=== PATIENT | female | born 1950 | race Caucasian/White ===

== ENCOUNTER 2019-09-13 14:52 | Outpatient (CLI) | payer MEDICARE, OTHER, SELFPAY ==
--- NOTE | ~2019-09-13 | XR_ITS ---
EXAMINATION: XR lumbar spine 2-3V DATE: 09/13/2019 15:19 INDICATION: Right-sided sciatica. TECHNIQUE: 3 views of lumbar spine were obtained. COMPARISON: CT abdomen and pelvis 08/29/2014 FINDINGS: There is 4 degrees dextrocurvature of lumbar spine. Vertebral body heights are normal. Ther e is mildly decreased disc height at L5-S1. There are endplate osteophytes at most levels. There is m ultilevel severe facet joint osteoarthritis. IMPRESSION: 1. Mild lumbar spondylosis. Reviewed, dictated and finalized at location A. IMPRESSION: 1. Mild lumbar spondylosis.
--- NOTE | ~2019-09-13 | XR_ITS ---
EXAMINATION: XR knee RT 3V DATE: 09/13/2019 15:19 INDICATION: Right knee pain. TECHNIQUE: 3 views of right knee were obtained. COMPARISON: None. FINDINGS: Bone alignment is normal. No fracture. There is mild tricompartmental osteoarthritis. There is a moderate-sized knee joint effusion. IMPRESSION: 1. Mild right knee osteoarthritis. 2. Moderate-sized right knee joint effusion. Reviewed, dictated and finalized at location A.
== END 2019-09-13 14:53 | disposition home or self-care (01) ==
PROVIDERS: PCP Family Medicine; Visit Provider Nurse Practitioner Family
DX: M54.31 Sciatica, right side (principal); M47.896 Other spondylosis, lumbar region; M17.11 Unilateral primary osteoarthritis, right knee; M25.461 Effusion, right knee
CPT/HCPCS: 72100; 73562

== ENCOUNTER → 2019-11-20 11:43 | Outpatient (CLI) | payer MEDICARE, OTHER, SELFPAY ==
--- NOTE | ~2019-11-20 | MR_ITS ---
EXAMINATION: MR knee RT wo con DATE: 11/20/2019 12:27 INDICATION: Right knee pain TECHNIQUE: Magnetic resonance imaging (MRI) of the right knee was performed without intravenous contr ast. Sequences included coronal PD-weighted FSE, coronal PD-weighted FS FSE, sagittal T2-weighted FS E, sagittal PD-weighted FS FSE and axial PD weighted fat saturated FSE. COMPARISON: None. FINDINGS: Medial compartment: Complex medial meniscal tear including a radial tear near the posterior root and a longitudinal horiz ontal tear plane extending to the more medial posterior horn and body. Amorphous increased signal at the anterior horn representing additional anterior extension of the tear or secondary degeneration of indeterminate morphology. There is medial extrusion of the meniscal body. Deep chondral ulceration w ith scattered foci of subarticular edema at the anterior to central weightbearing medial femoral cond yle and anterior and medial margin of the medial tibial plateau. Less severe thickness chondral ulcer ation but with deep fissuring and with small central subchondral osteophytes at the posterior weightb earing medial femoral condyle. Small marginal osteophytes are present. Lateral compartment: Deep chondral fissuring involving greater than 50% the cartilage thickness but without degenerative s ubchondral changes at the central aspect of the lateral tibial plateau and with mild subarticular mariya ma at the anterior weightbearing lateral femoral condyle. Partial thickness cartilage loss with chond ral surface regularity but without degenerative subchondral changes at the posterior weightbearing la teral femoral condyle. Tiny marginal osteophytes are present. Patellofemoral compartment: Deep chondral ulceration without degenerative subchondral changes at the patellar apical ridge and mo re prominently along the medial patellar facet. Deep chondral fissuring without degenerative subchond ral changes at the medial trochlea, trochlear groove and lateral trochlea. Ligaments and tendons: Anterior and posterior cruciate ligaments are normal. The medial collateral ligament and fibular sabiha ateral ligament complex are normal. Small enthesophytes and mild tendinopathy at the patellar inserti on of the distal quadriceps tendon. The patellar tendon is normal. Mild tendinopathy without discrete tear at the distal semimembranosus tendon. The remainder of the visualized medial and lateral hamstr ing tendons as well as the iliotibial band are normal. Fluid: Moderate-sized knee joint effusion with fluid and mild synovitis at the suprapatellar pouch. Addition al mild synovitis along the posterior margin of Hoffa's fat pad. No loose osteochondral bodies identi fied. Osseous/other: Aside from the previously noted scattered subarticular edema there is normal marrow signal. No fractu re or pathologic marrow replacing process. IMPRESSION: 1. Complex medial meniscal tear. 2. 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 3. Mild semimembranosus tendinopathy without discrete tear. 4. Mild distal quadriceps enthesopathy. 5. Likely reactive moderate sized knee joint effusion with synovitis. Reviewed, dictated and finalized at location A. IMPRESSION: 1. Complex medial meniscal tear. 2. 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 3. Mild semimembranosus tendinopathy without discrete tear. 4. Mild distal quadriceps enthesopathy. 5. Likely reactive moderate sized knee joint effusion with synovitis.
== END ==
PROVIDERS: Visit Provider Orthopaedic Surgery
DX: S83.231A Complex tear of medial meniscus, current injury, right knee, initial encounter (principal); X58.XXXA Exposure to other specified factors, initial encounter; M25.461 Effusion, right knee
CPT/HCPCS: 73721

== ENCOUNTER 2019-12-27 10:36 | Outpatient (CLI) | payer MEDICARE, OTHER, SELFPAY ==
--- NOTE | 2019-12-27 | ECG_ITS ---
Measurements Intervals [place] Rate: 52 P: 54 IN: 202 QRS: 42 QRSD: 102 T: 22 QT: 418 QTc: 392 Interpretive Statements SINUS BRADYCARDIA BORDERLINE AV CONDUCTION DELAY BORDERLINE ST ABNORMALITY- INFERIOR LEADS BORDERLINE ECG Electronically Signed On 12-27-2019 11:32:50 CDT by Jasper Zepeda D.O.
[2019-12-27 11:13] LABS: Urine Cotinine NEGATIVE
[2019-12-27 11:13] LABS: Hemoglobin A1C 5.4 % (<5.7)
[2019-12-27 11:14] LABS: Albumin Level 4.4 g/dL (3.5-5.1); Estimated Glomerular Filt Rate > 60; Glucose 83 mg/dL (65-105)
== END 2019-12-27 10:37 | disposition home or self-care (01) ==
PROVIDERS: PCP Family Medicine; Visit Provider Orthopaedic Surgery
DX: Z01.818 Encounter for other preprocedural examination (principal); I10 Essential (primary) hypertension; E03.9 Hypothyroidism, unspecified; R94.4 Abnormal results of kidney function studies; R94.31 Abnormal electrocardiogram [ECG] [EKG]
CPT/HCPCS: 80307; 82040; 82565; 82947; 83036; 85014; 85018; 93005

== ENCOUNTER 2020-01-18 09:44 | Outpatient (CLI) | payer MEDICARE, OTHER, SELFPAY ==
[2020-01-18 12:12] LABS: Basophils Percent Auto 0.6 % (0.2-1.2); Eosinophils Absolute Auto 0.1 K/mm3 (0-0.3); Eosinophils Percent Auto 1.6 % (0-4.4); Hematocrit 42.2 % (37.0-47.0); Hemoglobin 13.8 g/dL (12.0-15.0); Immature Granulocyte Absolute 0.02 K/mm3 (0.00-0.031); Immature Granulocyte Percent A 0.3 % (0-0.5); Lymphocytes Absolute Auto 2.16 K/mm3 (0.9-3.2); Lymphocytes Percent Auto 31.9 % (18.3-44.2); Mean Corpuscular HGB Conc 32.7 g/dl (32-36); Mean Corpuscular Hemoglobin 29.1 pg (26-34); Mean Corpuscular Volume 88.8 fl (80-100); Monocytes Absolute Auto 0.5 K/mm3 (0.1-0.6); Monocytes Percent Auto 7.7 % (2.6-8.5); Neutrophils Absolute Auto 3.9 K/mm3 (1.3-6.7); Neutrophils Percent Auto 57.9 % (45.5-73.1); Platelet Count Result 243 k/mm3 (150-375); Red Blood Count 4.75 M/mm3 (4.2-5.4); Red Cell Distribution Width 12.3 % (11.5-14.5); White Blood Count 6.8 K/mm3 (4.5-10.0)
== END 2020-01-18 09:45 | disposition home or self-care (01) ==
PROVIDERS: PCP Family Medicine; Visit Provider Orthopaedic Surgery
DX: M17.11 Unilateral primary osteoarthritis, right knee (principal); Z01.812 Encounter for preprocedural laboratory examination
CPT/HCPCS: 36415; 85025; 87081

== ENCOUNTER 2020-02-09 01:24 | Outpatient (CLI) | payer MEDICARE, OTHER, SELFPAY ==
[2020-02-09 18:04] LABS: SARS-CoV-2 RNA PCR Negative
== END 2020-02-09 01:25 | disposition home or self-care (01) ==
LOC: ANHCOVIDDT 01:25
PROVIDERS: PCP Family Medicine; Visit Provider Orthopaedic Surgery
DX: Z01.818 Encounter for other preprocedural examination (principal); Z20.828 Contact with and (suspected) exposure to other viral communicable diseases
CPT/HCPCS: 87635; C9803; U0003

== ENCOUNTER 2020-02-10 08:54 | Emergency (ER) | payer MEDICARE, OTHER, SELFPAY ==
--- NOTE | ~2020-02-10 | XR_ITS ---
EXAMINATION: XR lumbar spine 2-3V DATE: 02/10/2020 09:51 INDICATION: Left-sided low back pain. TECHNIQUE: 3 views of lumbar spine were obtained. COMPARISON: Lumbar spine radiograph 09/13/2019 FINDINGS: Bone alignment is normal. There is a compression fracture of L1 with 1/5 loss of height. In tervertebral disc heights are normal. There are endplate osteophytes at most levels. There is multile carmenza severe facet joint osteoarthritis. IMPRESSION: 1. Age-indeterminate L1 compression fracture, new from 09/13/2019. 2. Mild lumbar spondylosis. Reviewed, dictated and finalized at location A. SITTER
[2020-02-10 09:06] VITALS: BP 134/54; PULSE 59; RESP 17; TEMP 36.5; O2SAT 100
--- NOTE | 2020-02-10 09:47 | PC.NURSE ---
PT taken to Xray
[2020-02-10] MEDS: KETOROLAC (*BKC) 60 MG/2 ML VIAL IM (09:53)
[2020-02-10] MEDS: methylPREDNISolone ACETATE 80 MG/ML VIAL IM (09:53)
--- NOTE | 2020-02-10 10:20 | ED.FALL ---
HPI - Fall General Chief Complaint: Fall Stated Complaint: fall, back pain Time Seen by Provider: 02/10/20 09:11 History of Present Illness HPI Narrative: Patient is a 69-year-old female who presents ER with low back pain. Patient reports 2 days ago she was walking and tripped over some socks falling backwards into a wall striking her back. Pain has increased and been persistent over the last 24 hours. Seems to be more on the left side than the right. Has a lot of pain with bending and trying to stand up. She is most comfortable sitting upright. No numbness or tingling to lower extremities. No difficulty urinating or defecating. Did not strike any other part of her body. She has been taking [id number] pain medications and has been applying Biofreeze patches without relief of her discomfort. Related Data Home Medications Medication Instructions Recorded Confirmed propranolol 80 mg capsule,24 80 mg PO DAILY 02/19/19 02/08/20 hr,extended release primidone 50 mg tablet 125 mg PO BID 06/01/19 02/08/20 fluticasone propionate 50 1 spray NASAL DAILY 09/27/19 02/08/20 mcg/actuation nasal spray,suspension atorvastatin 40 mg PO HS 01/18/20 02/08/20 azelastine [Astepro] 2 spray INTRANASAL Q12H 01/18/20 02/08/20 losartan 100 mg PO DAILY 01/18/20 02/08/20 multivitamin [Multi-Vitamin] 1 tablet PO DAILY 01/18/20 02/08/20 sumatriptan succinate [Imitrex] See Rx Instructions PO .COMPLEX 01/18/20 02/08/20 nystatin 100,000 unit/gram topical 1 applic TOPICAL DAILY 02/06/20 cream triamcinolone acetonide 0.1 % 1 applic TOPICAL DAILY 02/06/20 topical ointment Allergies Allergy/AdvReac Type Severity Reaction Status Date / Time Cephalosporins Allergy Unknown Rash Verified 02/10/20 09:12 levofloxacin Allergy Unknown Rash Verified 02/10/20 09:12 amoxicillin AdvReac STOMACH Verified 02/10/20 09:12 UPSET nitrofurantoin AdvReac STOMACH Verified 02/10/20 09:12 UPSET Review of Systems Gastrointestinal: Gastrointestinal: Denies constipation, Denies nausea and Denies vomiting Genitourinary: Genitourinary: Denies nocturia and Denies urinary incontinence Musculoskeletal: Musculoskeletal: Reports back pain and Denies muscle cramps Neurologic: Denies focal weakness and Denies numbness PMFSH Past Medical History Medical History Abnormal kidney function Anxiety disorder, unspecified BMI 29.0-29.9,adult Cardiac murmur, unspecified Essential (primary) hypertension History of breast cancer History of fracture of arm (~2013) Hypothyroidism Knee osteoarthritis Migraine without aura and with status migrainosus, not intractable Mixed hyperlipidemia Shoulder pain, bilateral Tremor Trochanteric bursitis of left hip Vitamin D deficiency, unspecified Surgical History Surgical History History of arthroscopy of left knee (~2007) History of bladder surgery (~2016) History of hysterectomy (~2004) History of left knee replacement (~2012) Family History Family History Father Hypertension, Onset Age: 63 Patient's father is Mother Hypertension, Onset Age: 59 Family history of malignant neoplasm Patient's mother is Sibling Hypertension Family history of coronary artery disease Grandparent Diabetes mellitus, Onset Age: 83 Social History Social History Smoking status: Never smoker Second hand tobacco smoke exposure: No Alcohol intake: never Substance use: never Spiritual care concerns: No Exam Narrative: Exam Narrative: GENERAL: Well-appearing, well-nourished, and in no acute distress. HEAD: Normocephalic, atraumatic. EXTREMITIES: Normal range of motion. No edema. Back: No midline tenderness of the thoracic or lumbar spin
== END 2020-02-10 11:19 | disposition home or self-care (01) ==
PROVIDERS: Emergency Provider Emergency Medicine; PCP Family Medicine
DX: S32.018A Other fracture of first lumbar vertebra, initial encounter for closed fracture (principal); I10 Essential (primary) hypertension; Z85.3 Personal history of malignant neoplasm of breast; E03.9 Hypothyroidism, unspecified; M17.10 Unilateral primary osteoarthritis, unspecified knee; E78.2 Mixed hyperlipidemia; E55.9 Vitamin D deficiency, unspecified; Z96.652 Presence of left artificial knee joint; M47.816 Spondylosis without myelopathy or radiculopathy, lumbar region; W18.09XA Striking against other object with subsequent fall, initial encounter
CPT/HCPCS: 72100; 96372; 99284; J1040; J1885

== ENCOUNTER 2020-03-25 09:28 | Outpatient (CLI) | payer MEDICARE, OTHER, SELFPAY ==
--- NOTE | ~2020-03-25 | MR_ITS ---
EXAMINATION: MR lumbar spine wo con DATE: 03/25/2020 10:20 INDICATION: L1 compression fracture. TECHNIQUE: Magnetic resonance imaging (MRI) of the lumbar spine was performed without intravenous con trast. Sequences included sagittal T2-weighted FSE, sagittal T2-weighted FS FSE, sagittal T1-weighted FSE, and axial T2-weighted FSE. COMPARISON: Lumbar spine radiographs 02/10/2020 FINDINGS: There is 8 degrees dextrocurvature of thoracic lumbar spine. There is a compression fractur e of superior endplate of L1 with 2/5 loss of height, bone marrow edema, and retropulsion of bone 4 m m into central spinal canal. There is mildly decreased disc height at T12-L1. The distal spinal cord signal intensity is normal. The conus medullaris is at T12-L1. There are cysts in the kidneys measuri ng up to 8.3 cm on the left. The following disc levels are specifically discussed: T12-L1: The disc is bulging. There is moderate right and mild left facet joint osteoarthritis. There is mild left neural foraminal stenosis. There is mild central canal stenosis. L1-L2: The disc does not extend beyond the endplate margin. There is moderate bilateral facet joint o steoarthritis. There is no neural foraminal stenosis. There is no central canal stenosis. L2-L3: The disc is bulging. There is severe bilateral facet joint osteoarthritis. There is mild bilat eral neural foraminal stenosis. There is mild central canal stenosis. L3-L4: The disc is bulging. There is moderate bilateral facet joint osteoarthritis. There is mild chris ateral neural foraminal stenosis. There is mild central canal stenosis. L4-L5: The disc is bulging. There is severe bilateral facet joint osteoarthritis. There is mild bilat eral neural foraminal stenosis. There is mild central canal stenosis. L5-S1: The disc is bulging. There is severe bilateral facet joint osteoarthritis. There is mild bilat eral neural foraminal stenosis. There is mild central canal stenosis. IMPRESSION: 1. Subacute L1 burst fracture, stable from 02/10/2020. 2. Mild lumbar spondylosis. Reviewed, dictated and finalized at location A. T ECOLOGIST
== END 2020-03-25 09:29 | disposition home or self-care (01) ==
PROVIDERS: PCP Family Medicine; Visit Provider Physician Assistant Medical
DX: S32.010A Wedge compression fracture of first lumbar vertebra, initial encounter for closed fracture (principal); X58.XXXA Exposure to other specified factors, initial encounter; M47.896 Other spondylosis, lumbar region
CPT/HCPCS: 72148

== ENCOUNTER 2021-03-24 08:26 | Outpatient (CLI) | payer MEDICARE, OTHER, SELFPAY ==
--- NOTE | 2021-03-24 08:43 | ECHO_ITS ---
Patient Info Name: Adele Gould Age: 70 years : 1950 Gender: Female Ht: 65 in Wt: 182 lbs BSA: 1.97 m2 HR: 58 bpm BP: 131 / 66 mmHg Technical Quality: Good Exam Date: 03/24/2021 8:51 AM Exam Location: [facility] Patient Status: Outpatient Admit Date: 03/24/2021 Staff Ordering Physician: Debbie Menendez PAC [employer] Insulation Installer: Kayleen Phelan RDCS Attending Provider: Debbie Menendez Referring Physician: Shon COATS; Exam Type: CA echo doppler color flow Study Info Indications I49.8 - Other specified cardiac arrhythmias Complete two-dimensional, color flow and Doppler transthoracic echocardiogram is performed. Summary 1. Complete two-dimensional, color flow and Doppler transthoracic echocardiogram is performed. 2. Left ventricular chamber dimension is normal. 3. Left ventricular systolic function is hyperdynamic, estimated at >70%. 4. The left ventricular diastolic function is abnormal. 5. E/e' 17 is elevated. 6. Global longitudinal strain is normal at -19.1%. 7. Left atrial chamber dimension is mildly enlarged. 8. There is mild mitral valve regurgitation. 9. There is trace tricuspid valve regurgitation. 10. No pulmonary hypertension, estimated pulmonary arterial systolic pressure is 29 mmHg. Left Ventricle E/e' 17 is elevated. Global longitudinal strain is normal at -19.1%. Left ventricular chamber dimension is normal. Left ventricular systolic function is hyperdynamic, estimated at >70%. The left ventricular diastolic function is abnormal. Right Ventricle Right ventricular chamber dimension is normal. Right ventricular systolic function is normal. Left Atria Left atrial chamber dimension is mildly enlarged. Right Atria Right atrial chamber dimension is normal. Aortic Valve The aortic valve is trileaflet. There is no aortic valve stenosis. There is no aortic valve regurgitation. Pulmonic Valve There is no pulmonic regurgitation. Mitral Valve There is no mitral valve stenosis. There is mild mitral valve regurgitation. Tricuspid Valve There is trace tricuspid valve regurgitation. No pulmonary hypertension, estimated pulmonary arterial systolic pressure is 29 mmHg. Pericardium/Pleural There is no pericardial effusion. Inferior Vena Cava Normal inferior vena cava with >50% collapse upon inspiration consistent with normal right atrial pressure, 5 mmHg. Aorta The aortic root size at the sinus of Valsalva is normal. Left Ventricular Outflow Tract Name Value Normal LVOT 2D LVOT Diameter 2.0 cm LVOT Doppler LVOT Peak Gradient 5 mmHg LVOT Mean Gradient 3 mmHg LVOT VTI 25 cm LVOT VTI/AV VTI Ratio 0.8 LVOT Stroke Volume 76 ml LVOT CO 4.1 l/min LVOT CI 2.1 l/min/m2 Pulmonic Valve Name Value Normal
--- NOTE | 2021-03-30 16:02 | WPDHOLTEREM ---
Holter/Event Monitor Holter/Event Monitor Date of procedure: 03/24/21 Holter/Event Procedure: 24 Hr Holter Monitor Indications: Murmur Conclusion: 1. 24 hour holter monitor on 03/24/21. 2. Underlying rhythm is sinus rhythm. HR range 52-85 bpm; average HR 63 bpm. 3. There are 297 premature supraventricular complexes and 25 supraventricular couplets. No supraventricular tachycardia. 4. No premature ventricular complex. No ventricular tachycardia. 5. No sinoatrial or atrioventricular blocks. No significant pauses greater than 2 seconds. 6. No symptoms available for correlation.
== END 2021-03-24 08:27 | disposition home or self-care (01) ==
PROVIDERS: PCP Family Medicine; Visit Provider Physician Assistant Medical
DX: I49.8 Other specified cardiac arrhythmias (principal); R01.1 Cardiac murmur, unspecified; I51.7 Cardiomegaly
CPT/HCPCS: 93225; 93226; 93306

== ENCOUNTER 2021-10-04 07:24 | Outpatient (CLI) | payer MEDICARE, OTHER, SELFPAY ==
--- NOTE | ~2021-10-04 | MR_ITS ---
EXAMINATION: MR lumbar spine wo con DATE: 10/04/2021 08:11 INDICATION: Lumbar spondylosis with 3 years of progressively worsening low back pain TECHNIQUE: Magnetic resonance imaging (MRI) of the lumbar spine was performed without intravenous con trast. Sequences included sagittal T2-weighted FSE, sagittal T2-weighted FS FSE, sagittal T1-weighted FSE, and axial T2-weighted FSE. COMPARISON: 03/25/2020 FINDINGS: 2 mm anterolisthesis L5 on S1. L1 is a transitional segment with bilateral unfused transverse process apophyseal centers. No interval change in an L1 burst fracture with 40% central vertebral body heigh t loss and 4 mm retropulsion at the cephalad aspect of the posterior wall. Remaining vertebral body h eights are normal. Normal marrow signal. Mild disc height loss at T11-T12. The conus medullaris term inates at T12-L1. T1 and T2 hyperintense hemangioma at T11. There is otherwise normal signal in the c audal spinal cord. Multiple large T2 hyperintense bilateral renal cysts The following disc levels are specifically discussed: T12-L1: Disc is bulging and there is retropulsion of the superior endplate and posterior wall at L1. There is moderate bilateral facet joint osteoarthritis. There is mild right and moderate left neural foraminal stenosis. There is mild central canal stenosis. L1-L2: Mild right foraminal zone disc protrusion. There is moderate bilateral facet joint osteoarthri tis. There is mild right neural foraminal stenosis. There is minimal central canal stenosis. L2-L3: Disc is bulging. There is severe bilateral facet joint osteoarthritis. There is mild bilateral neural foraminal stenosis. There is mild central canal stenosis. L3-L4: Disc is bulging. There is moderate bilateral facet joint osteoarthritis. There is mild bilater al neural foraminal stenosis. There is mild central canal stenosis. L4-L5: Disc is bulging. There is hypertrophy of the ligamentum flavum. There is severe bilateral fac et joint osteoarthritis. There is mild bilateral neural foraminal stenosis. There is mild central can al stenosis. L5-S1: Disc is bulging. There is severe bilateral facet joint osteoarthritis. There is mild bilateral neural foraminal stenosis. There is mild central canal stenosis. IMPRESSION: 1. No interval change in a chronic L1 burst fracture. 2. Negligible progression of still mild lumbar spondylosis. Reviewed, dictated and finalized at location A.
== END 2021-10-04 07:25 | disposition home or self-care (01) ==
PROVIDERS: PCP Family Medicine; Visit Provider Nurse Practitioner Family
DX: M47.816 Spondylosis without myelopathy or radiculopathy, lumbar region (principal); S32.011A Stable burst fracture of first lumbar vertebra, initial encounter for closed fracture
CPT/HCPCS: 72148

== ENCOUNTER 2022-03-01 10:31 | Outpatient (CLI) | payer MEDICARE, OTHER, SELFPAY ==
--- NOTE | ~2022-03-01 | XR_ITS ---
XR lumbar spine 2-3V DATE: 03/01/2022 11:00 INDICATION: Low back pain for years. Fracture of L1-2 years ago. TECHNIQUE: AP, lateral, coned lateral lumbosacral views COMPARISON: 02/10/2020 lumbar spine 10/04/2021 MR lumbar spine FINDINGS: Stable moderately prominent burst fracture deformity of L1 compared to 10/04/2021 MR lumbar s pine examination. No other fracture or bone destruction is evident. Included lower thoracic and lumba r pedicles are intact. There is prominent degenerative change at the apophyseal joints of the Multilevel mild degenerative disc disease. Lumbar and lumbosacral spine. The sacroiliac joints are intact. There is osteopenia. IMPRESSION: Stable L1 burst fracture deformity since 06/2021 Multilevel mild degenerative disc disease of the lumbar spine. Osteopenia Reviewed, dictated and finalized at location B. 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
== END 2022-03-01 10:32 | disposition home or self-care (01) ==
PROVIDERS: PCP Family Medicine
DX: S32.011A Stable burst fracture of first lumbar vertebra, initial encounter for closed fracture (principal); X58.XXXA Exposure to other specified factors, initial encounter; M51.36 Other intervertebral disc degeneration, lumbar region; M85.88 Other specified disorders of bone density and structure, other site
CPT/HCPCS: 72100

== ENCOUNTER 2022-03-27 11:47 | Emergency (ER) | payer MEDICARE, OTHER, SELFPAY ==
--- NOTE | 2022-03-27 11:51 | ED.DENTAL ---
HPI - Dental/Oral General Chief complaint: Dental/Oral Stated complaint: mouth is swelling Time Seen by Provider: 03/27/22 11:51 Source: patient Mode of arrival: ambulatory Limitations: no limitations History of Present Illness HPI Narrative: Adele is a 71-year-old female patient presenting to the clinic today with complaints of mouth swelling times 2-3 days. She reports the swelling is getting worse as it now feels as though is going back into her jaw and into her ear. She started Bactrim DS for urinary tract infection think that she may have an allergic reaction. She denies any shortness of breath or difficulty swallowing. States she feels as though her lips are swollen her tongue is swollen her mouth is swollen. Related Data Home Medications Medication Instructions Recorded Confirmed propranolol 80 mg capsule,24 80 mg PO DAILY 02/19/19 03/27/22 hr,extended release primidone 50 mg tablet 125 mg PO BID 06/01/19 03/27/22 fluticasone propionate 50 1 spray intranasal DAILY 09/27/19 03/27/22 mcg/actuation nasal spray,suspension (Flonase Allergy Relief) azelastine 137 mcg (0.1 %) nasal 2 spray intranasal Q12H 01/18/20 03/27/22 spray aerosol multivitamin 1 tablet PO DAILY 01/18/20 03/27/22 triamcinolone acetonide 0.1 % 1 applic topical DAILY 02/06/20 03/27/22 topical ointment aspirin 81 mg tablet,delayed 81 mg PO DAILY 10/20/20 03/27/22 release (Adult Aspirin Regimen) cetirizine 10 mg capsule (Zyrtec) 10 mg PO DAILY PRN Congestion 10/20/20 03/27/22 cholecalciferol (vitamin D3) 75 75 mcg PO DAILY 10/20/20 03/27/22 mcg (3,000 unit) tablet Allergies Allergy/AdvReac Type Severity Reaction Status Date / Time Cephalosporins Allergy Unknown Rash Verified 03/27/22 11:55 levofloxacin Allergy Unknown Rash Verified 03/27/22 11:55 sulfamethoxazole Allergy Swelling Verified 03/27/22 12:06 [From Bactrim] of Lip/Tongue/Throat trimethoprim [From Bactrim] Allergy Swelling Verified 03/27/22 12:06 of Lip/Tongue/Throat amoxicillin AdvReac STOMACH Verified 03/27/22 11:55 UPSET clavulanic acid AdvReac Diarrhea Verified 03/27/22 12:06 [From Augmentin] nitrofurantoin AdvReac STOMACH Verified 03/27/22 11:55 UPSET Review of Systems Review of Systems: Pertinent positives per HPI. Patient denies any fever, chills, rash, headache, visual changes, dizziness, cough, runny nose, sore throat, shortness of breath, chest pain, palpitations, nausea, vomiting, diarrhea, constipation, abdominal pain, or any urinary issues. [facility] Past Medical History Medical History Abnormal kidney function Anxiety disorder, unspecified BMI 29.0-29.9,adult Cardiac murmur, unspecified Essential (primary) hypertension GERD without esophagitis History of breast cancer History of fracture of arm (~2013) Hypothyroidism Knee osteoarthritis Migraine without aura and with status migrainosus, not intractable Mixed hyperlipidemia Shoulder pain, bilateral Tremor Trochanteric bursitis of left hip Vitamin D deficiency, unspecified Surgical History Surgical History History of arthroscopy of left knee (~2007) History of bladder surgery (~2016) History of hysterectomy (~2004) History of left knee replacement (~2012) Family History Family History Father Hypertension, Onset Age: 63 Patient's father is Mother Hypertension, Onset Age: 59 Family history of malignant neoplasm Patient's mother is Sibling Hypertension Family history of coronary artery disease Grandparent Diabetes mellitus, Onset Age: 83 Social History Social History Smoking status: Never smoker Second hand tobacco smoke exposure: Yes Alcohol intak
[2022-03-27 11:56] VITALS: BP 102/56; PULSE 58; RESP 16; TEMP 35.9; O2SAT 98
== END 2022-03-27 12:35 | disposition home or self-care (01) ==
PROVIDERS: Emergency Provider Nurse Practitioner Family; PCP Family Medicine
DX: T78.3XXA Angioneurotic edema, initial encounter (principal); N30.00 Acute cystitis without hematuria; I10 Essential (primary) hypertension; E03.9 Hypothyroidism, unspecified; E78.2 Mixed hyperlipidemia; Z79.82 Long term (current) use of aspirin; Z85.3 Personal history of malignant neoplasm of breast
CPT/HCPCS: 96372; 99213; G0463; J1100

== ENCOUNTER 2022-03-29 09:25 | Emergency (ER) | payer MEDICARE, OTHER, SELFPAY ==
[2022-03-29 09:34] VITALS: BP 126/49; PULSE 61; RESP 16; TEMP 36.1; O2SAT 100
--- NOTE | 2022-03-29 09:35 | ED.ALLEREA ---
HPI - Allergic Reaction General Chief complaint: Allergic Reaction Stated complaint: allergic reaction to medicine Time Seen by Provider: 03/29/22 09:50 Mode of arrival: ambulatory Limitations: no limitations History of Present Illness HPI narrative: 71-year-old female presents with concern for allergic reaction. She was seen by her primary care on the and placed on Bactrim for urinary tract infection. She presented to this clinic on the for an allergic reaction to Bactrim. She was placed on Macrobid. She presents today for concern for allergic reaction to Macrobid. She reports lip swelling, feeling of tongue swelling, feeling of sickness when she swallows. She has been taking Benadryl every 6 hours since March 27. She reports symptoms of her UTI have improved but are not resolved. She denies fever, back pain, body aches, chills, sweats. MD complaint: allergic reaction Related Data Home Medications Medication Instructions Recorded Confirmed propranolol 80 mg capsule,24 80 mg PO DAILY 02/19/19 03/27/22 hr,extended release primidone 50 mg tablet 125 mg PO BID 06/01/19 03/27/22 fluticasone propionate 50 1 spray intranasal DAILY 09/27/19 03/27/22 mcg/actuation nasal spray,suspension (Flonase Allergy Relief) azelastine 137 mcg (0.1 %) nasal 2 spray intranasal Q12H 01/18/20 03/27/22 spray aerosol multivitamin 1 tablet PO DAILY 01/18/20 03/27/22 triamcinolone acetonide 0.1 % 1 applic topical DAILY 02/06/20 03/27/22 topical ointment aspirin 81 mg tablet,delayed 81 mg PO DAILY 10/20/20 03/27/22 release (Adult Aspirin Regimen) cetirizine 10 mg capsule (Zyrtec) 10 mg PO DAILY PRN Congestion 10/20/20 03/27/22 cholecalciferol (vitamin D3) 75 75 mcg PO DAILY 10/20/20 03/27/22 mcg (3,000 unit) tablet meclizine 25 mg tablet 25 mg PO TID PRN Dizziness 03/27/22 03/27/22 Allergies Allergy/AdvReac Type Severity Reaction Status Date / Time Cephalosporins Allergy Unknown Rash Verified 03/27/22 11:55 levofloxacin Allergy Unknown Rash Verified 03/27/22 11:55 sulfamethoxazole Allergy Swelling Verified 03/27/22 12:06 [From Bactrim] of Lip/Tongue/Throat trimethoprim [From Bactrim] Allergy Swelling Verified 03/27/22 12:06 of Lip/Tongue/Throat amoxicillin AdvReac STOMACH Verified 03/27/22 11:55 UPSET clavulanic acid AdvReac Diarrhea Verified 03/27/22 12:06 [From Augmentin] nitrofurantoin AdvReac STOMACH Verified 03/27/22 11:55 UPSET Review of Systems Review of Systems: CONSTITUTIONAL: Denies malaise, chills, sweats, or fever. EYES: Denies visual changes, redness, or discharge. ENT: Reports swollen upper lip, swollen tongue CARDIOVASCULAR: Denies chest pain, palpitations, or edema. RESPIRATORY: Denies cough or dyspnea. GASTROINTESTINAL: Denies abdominal pain, nausea, vomitin GENITOURINARY: Denies dysuria or hematuria. SKIN: Denies rash or itching. MUSCULOSKELETAL: Denies back pain or myalgia. All systems reviewed & are unremarkable except as noted in HPI and below PMFSH Past Medical History Medical History Abnormal kidney function Anxiety disorder, unspecified BMI 29.0-29.9,adult Cardiac murmur, unspecified Essential (primary) hypertension GERD without esophagitis History of breast cancer History of fracture of arm (~2013) Hypothyroidism Knee osteoarthritis Migraine without aura and with status migrainosus, not intractable Mixed hyperlipidemia Shoulder pain, bilateral Tremor Trochanteric bursitis of left hip Vitamin D deficiency, unspecified Surgical History Surgical History History of arthroscopy of left knee (~2007) History of bladder surgery (~2016) History of hysterectomy (~2004) History of left knee replacement (~2012) Family History Family History Father
[2022-03-29] MEDS: methylPREDNISolone SOD SUCC 125 MG VIAL IM (09:56)
[2022-03-29] MEDS: cefTRIAXone 1 GM, LIDOCAINE HCL 1% LOCAL INJ 2.1 ML IM (10:45)
== END 2022-03-29 11:00 | disposition home or self-care (01) ==
PROVIDERS: Emergency Provider Nurse Practitioner; PCP Family Medicine
DX: N39.0 Urinary tract infection, site not specified (principal); R22.0 Localized swelling, mass and lump, head; T37.8X5A Adverse effect of other specified systemic anti-infectives and antiparasitics, initial encounter; R01.1 Cardiac murmur, unspecified; I10 Essential (primary) hypertension; K21.9 Gastro-esophageal reflux disease without esophagitis; Z85.3 Personal history of malignant neoplasm of breast; E03.9 Hypothyroidism, unspecified; E78.2 Mixed hyperlipidemia; Z96.652 Presence of left artificial knee joint; Z79.82 Long term (current) use of aspirin
CPT/HCPCS: 81003; 87086; 87088; 96372; 99214; G0463; J0696; J2930

== ENCOUNTER 2022-03-30 10:10 | Emergency (ER) | payer MEDICARE, OTHER, SELFPAY ==
[2022-03-30 10:19] VITALS: BP 136/69; PULSE 61; RESP 16; TEMP 36.3; O2SAT 100
--- NOTE | 2022-03-30 10:38 | ED.FEMALEGU ---
HPI - Female Genitourinary General Chief complaint: Urogenital-Female Stated complaint: UTI Time Seen by Provider: 03/30/22 10:25 Source: patient Mode of arrival: ambulatory Limitations: no limitations History of Present Illness HPI Narrative: Aedle is a 71-year-old female patient presenting to the clinic today with complaints of facial swelling and possible urinary tract infection. She was seen twice before this week in the urgent care and also seen by her PCP. Her PCP placed her on Bactrim DS and she developed swelling 1-2 days after starting this medication so that medication was stopped and her urine culture was positive for E coli that was resistant to the Bactrim. I placed her on Macrobid, promethazine, and prednisone 3 days ago. She came in yesterday for same symptoms and received a Rocephin injection however she is still having swelling. She is currently taking losartan. Related Data Home Medications Medication Instructions Recorded Confirmed propranolol 80 mg capsule,24 80 mg PO DAILY 02/19/19 03/29/22 hr,extended release primidone 50 mg tablet 125 mg PO BID 06/01/19 03/29/22 fluticasone propionate 50 1 spray intranasal DAILY 09/27/19 03/29/22 mcg/actuation nasal spray,suspension (Flonase Allergy Relief) azelastine 137 mcg (0.1 %) nasal 2 spray intranasal Q12H 01/18/20 03/29/22 spray aerosol multivitamin 1 tablet PO DAILY 01/18/20 03/29/22 triamcinolone acetonide 0.1 % 1 applic topical DAILY 02/06/20 03/29/22 topical ointment aspirin 81 mg tablet,delayed 81 mg PO DAILY 10/20/20 03/29/22 release (Adult Aspirin Regimen) cetirizine 10 mg capsule (Zyrtec) 10 mg PO DAILY PRN Congestion 10/20/20 03/29/22 cholecalciferol (vitamin D3) 75 75 mcg PO DAILY 10/20/20 03/29/22 mcg (3,000 unit) tablet meclizine 25 mg tablet 25 mg PO TID PRN Dizziness 03/27/22 03/29/22 Allergies Allergy/AdvReac Type Severity Reaction Status Date / Time Cephalosporins Allergy Unknown Rash Verified 03/27/22 11:55 levofloxacin Allergy Unknown Rash Verified 03/27/22 11:55 sulfamethoxazole Allergy Swelling Verified 03/27/22 12:06 [From Bactrim] of Lip/Tongue/Throat trimethoprim [From Bactrim] Allergy Swelling Verified 03/27/22 12:06 of Lip/Tongue/Throat amoxicillin AdvReac STOMACH Verified 03/27/22 11:55 UPSET clavulanic acid AdvReac Diarrhea Verified 03/27/22 12:06 [From Augmentin] nitrofurantoin AdvReac STOMACH Verified 03/27/22 11:55 UPSET Review of Systems Review of Systems: Pertinent positives per HPI. Patient denies any fever, chills, rash, headache, visual changes, dizziness, cough, runny nose, sore throat, shortness of breath, chest pain, palpitations, nausea, vomiting, diarrhea, constipation, abdominal pain. FOR[facility]LY [facility] Past Medical History Medical History Abnormal kidney function Anxiety disorder, unspecified BMI 29.0-29.9,adult Cardiac murmur, unspecified Essential (primary) hypertension GERD without esophagitis History of breast cancer History of fracture of arm (~2013) Hypothyroidism Knee osteoarthritis Migraine without aura and with status migrainosus, not intractable Mixed hyperlipidemia Shoulder pain, bilateral Tremor Trochanteric bursitis of left hip Vitamin D deficiency, unspecified Surgical History Surgical History History of arthroscopy of left knee (~2007) History of bladder surgery (~2017) History of hysterectomy (~2004) History of left knee replacement (~2012) Family History Family History Father Hypertension, Onset Age: 63 Patient's father is Mother Hypertension, Onset Age: 59 Family history of malignant neoplasm Patient's mother is Sibling Hypertension Family history of coronary artery disease Grandparent Di
== END 2022-03-30 11:00 | disposition home or self-care (01) ==
PROVIDERS: Emergency Provider Nurse Practitioner Family; PCP Family Medicine
DX: T78.3XXA Angioneurotic edema, initial encounter (principal); N39.0 Urinary tract infection, site not specified; R01.1 Cardiac murmur, unspecified; I10 Essential (primary) hypertension; G21.9 Secondary parkinsonism, unspecified; E03.9 Hypothyroidism, unspecified; E78.2 Mixed hyperlipidemia; E55.9 Vitamin D deficiency, unspecified; Z85.3 Personal history of malignant neoplasm of breast; Z96.652 Presence of left artificial knee joint; Z79.82 Long term (current) use of aspirin
CPT/HCPCS: 81003; 99212; G0463

== ENCOUNTER → 2022-05-27 08:19 | Outpatient (CLI) | payer MEDICARE, OTHER, SELFPAY ==
--- NOTE | ~2022-05-27 | MR_ITS ---
MRI of the lumbar spine Clinical History: Spinal stenosis, compression fracture Technique: Axial T2-weighted images, and sagittal T1-weighted, T2-weighted, and T2 fat-sat images wer e acquired. COMPARISON: 10/04/2021 Findings: Chronic compression deformity of L1 is present, unchanged from prior exam. No new fracture or subluxation seen. Bone marrow signals are unremarkable. At L1-L2, there is no disc bulge or herniation. There is mild facet joint hypertrophy. No spinal perez l stenosis or neural foraminal narrowing. At L2-L3, there is minimal disc bulge with facet arthropathy. No spinal canal stenosis or neural fora michelle narrowing. At L3-L4, there is minimal disc bulge with facet arthropathy. No spinal canal stenosis. Probable mini mal left neural foraminal narrowing. At L4-L5, there is mild disc bulge with advanced facet arthropathy bilaterally. No spinal canal steno sis. There is minimal left neural foraminal narrowing. At L5-S1, there is facet arthropathy with minimal disc bulge. No spinal canal stenosis or neural fora michelle narrowing. Paravertebral soft tissues are unremarkable. Impression: Stable chronic L1 compression fracture. Mild degenerative spondylosis, as detailed above. Reviewed, dictated and finalized at location . R PLANT MANAGER Impression: Stable chronic L1 compression fracture. Mild degenerative spondylosis, as detailed above.
--- NOTE | ~2022-05-27 | MR_ITS ---
MRI of the thoracic spine Clinical History: Pain, compression fracture Technique: Axial T2-weighted and gradient images, and sagittal T1-weighted, T2-weighted, and STIR cole ges were acquired. Findings: No fracture or subluxation seen in the thoracic spine. Chronic L1 compression fracture inci dentally noted. Osseous alignment in thoracic spine is unremarkable. No bone marrow signal abnormalit y identified. No significant disc bulge or herniation seen at any thoracic level. No spinal canal stenosis or cord compression identified. No epidural mass or collection seen. Subtle bilateral renal cysts are present. Paravertebral soft tissues are unremarkable otherwise. Impression: No significant abnormality of the thoracic spine itself. Chronic L1 compression fracture. Please see details on separately reported lumbar spine MR. Reviewed, dictated and finalized at location . TE MACHINE BLUER Impression: No significant abnormality of the thoracic spine itself. Chronic L1 compression fracture. Please see details on separately reported lumb ar spine MR.
== END ==
PROVIDERS: PCP Family Medicine
DX: S32.010S Wedge compression fracture of first lumbar vertebra, sequela (principal); M47.816 Spondylosis without myelopathy or radiculopathy, lumbar region; M54.6 Pain in thoracic spine; M48.061 Spinal stenosis, lumbar region without neurogenic claudication; X58.XXXS Exposure to other specified factors, sequela; N28.1 Cyst of kidney, acquired
CPT/HCPCS: 72146; 72148

== ENCOUNTER 2023-02-03 01:29 | Day surgery (SDC) | payer MEDICARE, OTHER, SELFPAY ==
--- NOTE | 2023-01-28 08:30 | PC.NURSE ---
Report to the Outpatient Waiting Room, entrance under the green pavilion located off [facility], at time __1000 on date __02/03/23 . Planned Procedure Time: ___1100 . Time changes happen often and if your time is changed the preop area will call you the afternoon before. - You and your visitor will be asked to self-screen and do not enter if you have any COVID symptoms. - A mask is optional within the hospital at this time. PatIENT MAY HAVE LIGHT BREAKFAST MORNING OF SURGERY Take the following medications with a SIP of water the morning of surgery: ___ALL ROUTINE MORNING MEDICATIONS DO NOT STOP ANY OF YOUR OTHER PRESCRIPTION MEDICATIONS PRIOR TO SURGERY ?EXCEPT THE FOLLOWING Medications to discontinue per physician Date to take last dose Please no make-up, nail hebrew, hairspray, perfume, deodorant, or body powder the day of surgery. No jewelry (including any body piercings) or valuables the day of surgery, leave them at home. Please take a shower or bath the night before, or the morning of, surgery with an antibacterial soap. Wear comfortable, loose fitting clothing. Children are encouraged to wear pajamas. - Jewelry must be removed prior to entering the operating room. Rings and piercings that are not removed may be cut off. - The hospital will not accept responsibility for valuables. - Please leave all valuables, including medications, at home the day of surgery. If you are going home after surgery, a licensed chain saw driver must drive you home. - NO public transportation without another adult if you receive anesthesia. - We recommend that an adult stay with you for 24 hours following discharge. - We also recommend that you do not drive, make important decision, drink alcoholic beverages, or take any drugs that were not prescribed by your health care provider for at least 24 hours after your discharge time. Follow any additional instructions given to you from your surgeon. If you or anyone in your household have experienced Covid symptoms in the past week, please notify your surgeon or the nurse liaison at the phone number below for possible testing. Telephone instructions given to __PT and asked if any additional questions and then verbalized understanding. Patient advised to call surgeon office or pre surgery nurse liaison [phone] if any additional questions.
[2023-01-28 08:38] VITALS: BMI 31.8
--- NOTE | 2023-02-03 07:16 | WPDHPUPDATE1 ---
History and Physical Update Update Date/Time: 02/03/23 07:16 History and Physical has been reviewed, including an updated exam of the patient. There are NO changes in the patient's condition. Risks, benefits, and alternatives have been discussed and questions answered. Patient agrees to proceed with procedure.
[2023-02-03] MEDS: ACETAMINOPHEN 500 MG TABLET 1000 MG PO (07:20)
[2023-02-03 07:30] VITALS: BP 133/62; PULSE 52; RESP 20; O2SAT 100
[2023-02-03 07:34] VITALS: BP 104/46; PULSE 52; RESP 14; TEMP 36.2; O2SAT 99
[2023-02-03 07:40] VITALS: BP 152/67; PULSE 52; RESP 18; O2SAT 98
[2023-02-03] MEDS: BUPIVACAINE/EPINEPHRINE 0.5% 10 ML VIAL INFILTRATE (07:47)
[2023-02-03 07:50] VITALS: BP 131/63; PULSE 53; RESP 18; O2SAT 99
[2023-02-03 08:02] VITALS: BP 130/54; PULSE 52; RESP 16; O2SAT 100
--- NOTE | 2023-02-03 08:33 | SUR.PHASEII ---
Addendum entered by Emerita Bullock RN 02/03/23 08:39: increased Original Note: Dr. Cavanaugh aware of patient's decreased cap refill and thumb turning blue. He told RN he wasn't too concerned and said EPI (local) is known to do that but please loosen bandage.
--- NOTE | 2023-02-03 08:46 | P.OP_ITS ---
Procedure Note - Detailed Date of Procedure 02/03/23 Pre-op Diagnosis Right Trigger Thumb Post-op Diagnosis Same Procedure Performed Right trigger thumb release. Surgeon Ramo Cavanaugh MD Family Intervention Specialist Shanti Kyle PA-C Anesthesia Local Description of Procedure The hand was prepped and draped in the usual sterile fashion with a tourniquet was applied to the arm and well-padded. 6 mL 0.5% Marcaine with epinephrine was injected at the incision site. The limb was exsanguinated and the tourniquet inflated to 225 millimeters of mercury. A transverse incision was created over the A1 christian subcutaneous dissection was carried out bluntly. The A1 christian was identified and visualized. It was released with the dissection scissors longitudinally. The tourniquet was released. The wound was closed with horizontal mattress nylon suture 3-0. A sterile bulky dressing was applied. The patient was brought to the recovery room in stable condition. The finger was noted to be bit dusky in recovery and the dressing was taken down to the skin reapplied more loosely. Estimated Blood Loss 1 Pathology None sent Complications No immediate complications Condition Stable Disposition PACU [facility] Billing Surgery - Charge Forward: Surgery Billing
== END 2023-02-03 08:46 | disposition home or self-care (01) ==
PROVIDERS: PCP Family Medicine; Visit Provider Orthopaedic Surgery
PROC: (CPT 26055; principal; 2023-02-03 07:30)
DX: M65.311 Trigger thumb, right thumb (principal); F41.9 Anxiety disorder, unspecified; I10 Essential (primary) hypertension; K21.9 Gastro-esophageal reflux disease without esophagitis; E03.9 Hypothyroidism, unspecified; E78.2 Mixed hyperlipidemia; E55.9 Vitamin D deficiency, unspecified; G25.2 Other specified forms of tremor; Z79.4 Long term (current) use of insulin; Z80.9 Family history of malignant neoplasm, unspecified; Z82.49 Family history of ischemic heart disease and other diseases of the circulatory system; Z85.3 Personal history of malignant neoplasm of breast
CPT/HCPCS: 26055; A9270

== ENCOUNTER 2023-07-05 13:11 | Outpatient (CLI) | payer MEDICARE, OTHER, SELFPAY ==
--- NOTE | ~2023-07-05 | MR_ITS ---
MRI of the lumbar spine Clinical History: Degenerative disc disease Technique: Axial T2-weighted images, and sagittal T1-weighted, T2-weighted, and and T2 fat-sat images were acquired. COMPARISON: Report from prior exam dated 05/27/2022 Findings: Chronic L1 compression fracture present, likely unchanged. No acute fracture or subluxation seen in the lumbar spine. No suspicious bone marrow signal reality seen. At L1-L2, there is no significant disc bulge or herniation. There is moderate facet arthropathy. No c entral canal stenosis or neural foraminal narrowing. At L2-L3, there is mild disc bulge with severe facet arthropathy. No central canal stenosis. There is mild left neural foraminal narrowing, and moderate right neural foraminal narrowing. At L3-L4, there is minimal disc bulge and moderate facet arthropathy. No central canal stenosis. Ther e is mild to moderate bilateral neural foraminal narrowing. At L4-L5, there is mild disc bulge with severe facet arthropathy. No central canal stenosis. There is mild bilateral neural foraminal narrowing. At L5-S1, there is mild disc bulge with severe facet arthropathy. No central canal stenosis or defini te neural foraminal narrowing. Paravertebral soft tissues are unremarkable. Impression: Chronic L1 compression fracture. Mild degenerative spondylosis overall, as detailed above. Reviewed, dictated and finalized at [facility]. Impression: Chronic L1 compression fracture. Mild degenerative spondylosis overall, as detailed above.
== END 2023-07-05 13:12 | disposition home or self-care (01) ==
LOC: ANHIMG 13:12
PROVIDERS: PCP Family Medicine; Visit Provider Nurse Practitioner Family
DX: M51.36 Other intervertebral disc degeneration, lumbar region (principal); M47.896 Other spondylosis, lumbar region
CPT/HCPCS: 72148

== ENCOUNTER 2023-07-10 19:23 | Emergency (ER) | payer MEDICARE, OTHER, SELFPAY ==
--- NOTE | ~2023-07-10 | XR_ITS ---
EXAMINATION: XR chest 2V Exam Date/Time: 07/10/2023 19:36 CDT HISTORY: cough SOB x 5 days Comparison: 01/01/2019, report only. RESULT: Lines, tubes, and devices: None. Lungs and pleura: Clear. Cardiomediastinal silhouette: Unremarkable. Other: No acute osseous or upper abdominal finding. IMPRESSION: No acute cardiopulmonary process. Reviewed, dictated and finalized at location K.
--- NOTE | 2023-07-10 19:28 | ED.URI ---
HPI - URI/Sore Throat General Chief Complaint: Upper Respiratory Infection Stated Complaint: COUGH/SOB Time Seen by Provider: 07/10/23 19:33 Source: patient, RN notes reviewed and old records reviewed Mode of arrival: ambulatory Limitations: no limitations History of Present Illness HPI Narrative: 72-year-old female presents to the [facility] with complaints of cough and shortness of breath. SX started Tuesday, 5 day. Denies any swelling, chest pain. Patient received an albuterol inhaler on for 07/05. States she used her albuterol inhaler at 6:00 p.m. approximately an hour half prior to arrival Onset (ago): day(s) (5) Treatments prior to arrival: other (Prescribed medication by insole presser) Related Data Home Medications Medication Instructions Recorded Confirmed propranolol 80 mg capsule,24 80 mg PO DAILY TREMORS 02/19/19 07/10/23 hr,extended release primidone 50 mg tablet 50 mg PO BID TREMORS 06/01/19 07/10/23 fluticasone propionate 50 1 spray intranasal DAILY 09/27/19 07/10/23 mcg/actuation nasal spray,suspension (Flonase Allergy Relief) azelastine 137 mcg (0.1 %) nasal 2 spray intranasal Q12H 01/18/20 07/10/23 spray aerosol multivitamin 1 tablet PO DAILY 01/18/20 07/10/23 triamcinolone acetonide 0.1 % 1 applic topical 3XW 02/06/20 07/10/23 topical ointment aspirin 81 mg tablet,delayed 81 mg PO DAILY 10/20/20 07/10/23 release (Adult Aspirin Regimen) cholecalciferol (vitamin D3) 75 75 mcg PO DAILY 10/20/20 07/10/23 mcg (3,000 unit) tablet meclizine 25 mg tablet 25 mg PO TID PRN Dizziness 03/27/22 07/10/23 ascorbic acid (vitamin C) 1,000 mg 1 g PO .QD 04/12/22 07/10/23 capsule biotin 2,500 mcg capsule 2,500 mcg PO .QD 04/12/22 07/10/23 carboxymethylcellulose sodium 1 drp EACH EYE TID PRN Dry Eyes 04/12/22 07/10/23 (Refresh Contacts eye drops) nystatin 100,000 unit/gram topical 1 applic topical 3XW PRN INFECTION 04/12/22 07/10/23 ointment calcium citrate 1,000 mg tablet 2,000 mg PO DAILY 09/01/22 07/10/23 fexofenadine 60 mg tablet (Yamila 60 mg PO Q12H 12/22/22 07/10/23 Allergy) cyclosporine 0.05 % eye drops in a 1 drp EACH EYE Q12H 05/24/23 07/10/23 dropperette Allergies Allergy/AdvReac Type Severity Reaction Status Date / Time sulfamethoxazole Allergy Severe Swelling Verified 07/10/23 19:35 [From Bactrim] of Lip/Tongue/Throat trimethoprim [From Bactrim] Allergy Severe Swelling Verified 07/10/23 19:35 of Lip/Tongue/Throat Cephalosporins Allergy Unknown Rash Verified 07/10/23 19:35 levofloxacin Allergy Unknown Rash Verified 07/10/23 19:35 amoxicillin AdvReac STOMACH Verified 07/10/23 19:35 UPSET clavulanic acid AdvReac Diarrhea Verified 07/10/23 19:35 [From Augmentin] nitrofurantoin AdvReac STOMACH Verified 07/10/23 19:35 UPSET Review of Systems Review of Systems: All systems reviewed & are unremarkable except as noted in HPI and below Constitutional: Constitutional: Reports no additional constitutional complaints Eyes: Eyes: Reports no additional eye complaints ENT: Reports system reviewed and no additional complaints, except as documented Cardiovascular: Cardiovascular: Reports no additional cardiovascular complaints, Denies chest pain and Denies dyspnea Respiratory: Respiratory: Reports as per HPI, Denies chest congestion, Reports cough and Reports dyspnea Gastrointestinal: Gastrointestinal: Reports no additional gastrointestinal complaints, Denies abdominal pain, Denies nausea and Denies vomiting Musculoskeletal: Musculoskeletal: Reports no additional musculoskeletal complaints Integumentary/Breasts: Skin/Breast: Reports system reviewed and no additional complaints, except as docu Neurologic: Reports system reviewed and no additional complaints, except as documented Psychiatric: Psychiatric: Reports no additional psychiatric complaints Allergic/Immunologic: Allergic/Immunologic: Reports no additional allergic/immunologic compla
[2023-07-10 19:36] VITALS: BP 93/58; PULSE 65; RESP 16; TEMP 36; O2SAT 97
[2023-07-10 19:40] VITALS: BP 93/58; PULSE 65; RESP 16; TEMP 36; O2SAT 97
== END 2023-07-10 20:24 | disposition home or self-care (01) ==
PROVIDERS: Emergency Provider Nurse Practitioner; PCP Family Medicine
DX: J40 Bronchitis, not specified as acute or chronic (principal); J06.9 Acute upper respiratory infection, unspecified; Z20.822 Contact with and (suspected) exposure to COVID-19; R01.1 Cardiac murmur, unspecified; I10 Essential (primary) hypertension; K21.9 Gastro-esophageal reflux disease without esophagitis; Z85.3 Personal history of malignant neoplasm of breast; E03.9 Hypothyroidism, unspecified; E78.2 Mixed hyperlipidemia; E55.9 Vitamin D deficiency, unspecified; Z96.652 Presence of left artificial knee joint; Z79.82 Long term (current) use of aspirin
CPT/HCPCS: 71046; 87426; 87804; 99213; G0463

== ENCOUNTER 2023-09-29 13:53 | Outpatient (CLI) | payer MEDICARE, OTHER, SELFPAY ==
--- NOTE | ~2023-09-29 | XR_ITS ---
EXAM: XR knee RT min 4V DATE: 09/29/2023 14:12 HISTORY: No injury, right knee pain . COMPARISON: 09/01/2022, images only. FINDINGS: Decreased mineralization. No fracture or dislocation. No lytic or blastic lesion. Moderate medial joint space narrowing. Mild tricompartment osteophytosis. Quadriceps enthesopathy. No erosion or periosteal change. Small-volume joint effusion. IMPRESSION: Tricompartmental right knee osteoarthritis, moderate in the medial compartment. Reviewed, dictated and finalized at location K.
== END 2023-09-29 13:54 ==
PROVIDERS: PCP Orthopaedic Surgery; Visit Provider Orthopaedic Surgery
DX: M17.11 Unilateral primary osteoarthritis, right knee (principal)
CPT/HCPCS: 73564

== ENCOUNTER 2024-07-02 14:07 | Outpatient (CLI) | payer MEDICARE, OTHER, SELFPAY ==
--- NOTE | ~2024-07-02 | XR_ITS ---
XR hip RT 2V w AP pelvis 07/02/2024 14:35 Indication: Osteoarthritis of the right hip Procedure: AP pelvis and 2 views right hip Comparison: 02/22/2024 Findings: There is moderate osteoarthritis of the right hip. There is mild osteoarthritis of the left hip. Pelvic rings are intact. There is lower lumbar spondylosis. No fracture or traumatic malalignme nt. No significant soft tissue abnormality. Impression: 1: Bilateral osteoarthritis of the hips, right greater than left. Reviewed, dictated and finalized at location A. Impression: 1: Bilateral osteoarthritis of the hips, right greater than left.
== END 2024-07-02 14:08 | disposition home or self-care (01) ==
PROVIDERS: PCP Family Medicine; Visit Provider Orthopaedic Surgery
DX: M16.0 Bilateral primary osteoarthritis of hip (principal)
CPT/HCPCS: 73502

== ENCOUNTER 2024-08-02 09:24 | Inpatient (IN) | payer MEDICARE, OTHER, SELFPAY ==
[2024-08-02] VITALS (12 sets, daily range): BP systolic 127–203; BP diastolic 57–82; PULSE 53–88; RESP 10–17; TEMP 36.4–36.8; O2SAT 92–97; BMI 29.7
--- NOTE | ~2024-08-02 | CT_ITS ---
Non-contrast Head CT History: Head injury Technique: Axial non-contrast imaging of the brain was performed. Dose reduction technique was used on this scan by utilizing automated exposure control and iterative reconstruction technique. The dose -length product (DLP) was 605.33 mGy-cm. Findings: There is no evidence of intracranial hemorrhage, mass lesion, or acute infarct. Brain par enchyma appears normal. The ventricles and subarachnoid spaces are normal in size. The calvarium ap pears normal. The visualized paranasal sinuses and mastoid air cells are clear. Impression: No significant abnormality seen. Reviewed, dictated and finalized at location . Impression: No significant abnormality seen.
--- NOTE | ~2024-08-02 | XR_ITS ---
EXAMINATION: XR chest 1V DATE: 08/02/2024 11:06 INDICATION: Preoperative evaluation post fall with hip fracture. TECHNIQUE: frontal view of the chest was obtained. COMPARISON: 07/10/2023 FINDINGS: The lungs remain clear with no focal airspace opacities, pulmonary edema, pleural effusion or pneumot horax. The cardiomediastinal silhouette is normal. Mild scattered degenerative skeletal changes and s uggestion of an old healed fracture deformity at the right humeral neck. IMPRESSION: 1. No acute cardiopulmonary disease. Reviewed, dictated and finalized at location B.
--- NOTE | ~2024-08-02 | XR_ITS ---
EXAMINATION: XR surgery orthopedic DATE: 08/03/2024 16:26 INDICATION: Right hip intertrochanteric nailing TECHNIQUE: 15 fluoroscopic images of the right hip were obtained during procedure performed by Dr. Esme mcbride. Radiologist was not present for the imaging or procedure. The amount of fluoroscopy time us ed during this procedure was 2.3 minutes. Total DAP was 5.00 Gycm^2. COMPARISON: 08/02/2024 FINDINGS: Images demonstrate open reduction and internal fixation of the previous noted displaced and comminute d intertrochanteric fracture the proximal right femur. The fracture is fixed with a long antegrade in tramedullary rika with femoral neck dynamic compression screw and subtrochanteric interlocking screw. Alignment is significantly improved, essentially anatomic on the weightbearing axis of the femur with small amount of residual medial distraction at the caudal aspect of the lesser trochanteric fragment . No new fractures identified. Mild osteoarthritis at the left hip. IMPRESSION: 1. Near-anatomic alignment post open reduction internal fixation of a comminuted intertrochanteric fr acture the proximal right femur. See procedure note for further detail. Reviewed, dictated and finalized at location A. IMPRESSION: 1. Near-anatomic alignment post open reduction internal fixation of a comminute d intertrochanteric fracture the proximal right femur. See procedure note for carmita smith detail.
--- NOTE | ~2024-08-02 | XR_ITS ---
EXAMINATION: XR hip RT 2V w AP pelvis DATE: 08/02/2024 11:06 INDICATION: Right hip pain and deformity post fall TECHNIQUE: Anteroposterior view of the pelvis and anteroposterior and cross-table lateral views of th e right hip were obtained. COMPARISON: 07/02/2024 FINDINGS: Acute comminuted intertrochanteric fracture the proximal right femur. There is 7 mm anterior and 5 mm lateral displacement and 10 degrees varus angulation along the oblique intertrochanteric fracture li ne. There is 1.5 cm medial distraction of the lesser trochanteric fragment. Mild osteoarthritis at th e bilateral hip and and right sacroiliac joints. Moderate osteoarthritis at the left sacroiliac joint . Moderate to severe lower lumbar spondylosis with severe bilateral facet osteoarthritis. IMPRESSION: 1. Mildly displaced and angulated comminuted intertrochanteric fracture the proximal right femur. Reviewed, dictated and finalized at location B. IMPRESSION: 1. Mildly displaced and angulated comminuted intertrochanteric fracture the pro ximal right femur.
--- NOTE | ~2024-08-02 | CT_ITS ---
EXAMINATION: CT cervical spine wo con DATE: 08/02/2024 10:42 INDICATION: Fall with head injury TECHNIQUE: Computed tomography (CT) of the cervical spine was performed without intravenous contrast. Automated exposure control and iterative reconstruction technique were employed. The dose-length pro duct was 434.64 mGy-cm. COMPARISON: None FINDINGS: Severe osteoarthritis at the atlantoaxial articulation. 1 mm anterolisthesis C4 on C5. Vertebral body heights are normal. No fracture. Mild disc height loss at C5-C6. Disc bulges at C4-C5 and C5-C6. Int o minimal central canal stenosis at these levels. There is multilevel mild uncovertebral osteoarthrit is and moderate to severe left-sided predominant cervical facet osteoarthritis. There is solid osseou s fusion across the left C2-C3 facet joint. This contributes to minimal neural foraminal stenosis at a few levels. Cervical soft tissues are unremarkable. Mild smooth septal line thickening consistent w ith minimal pulmonary edema at the bilateral apices of the lungs. IMPRESSION: 1. Mild cervical spondylosis. No acute osseous abnormality. Reviewed, dictated and finalized at location B.
--- NOTE | ~2024-08-02 | XR_ITS ---
EXAMINATION: XR shoulder RT min 2V DATE: 08/02/2024 11:05 INDICATION: Right shoulder pain post fall TECHNIQUE: AP internally and externally rotated, AP oblique externally rotated and transscapular Y vi ews of the right shoulder were obtained. COMPARISON: 01/18/2014 FINDINGS: The previously seen comminuted fractures of the proximal right humerus has healed in essentially zaki omic alignment. No acute fracture. Mild osteoarthritis at the right acromioclavicular and glenohumera l joints. Moderate-sized subacromial spur. Soft tissues are unremarkable. Visualized portion of the r ight lung is clear. IMPRESSION: 1. Old proximal right humeral fracture which is healed in near-anatomic alignment. No acute osseous a bnormality. 2. Mild right glenohumeral and acromioclavicular osteoarthritis. Reviewed, dictated and finalized at location B. IMPRESSION: 1. Old proximal right humeral fracture which is healed in near-anatomic alignme nt. No acute osseous abnormality. 2. Mild right glenohumeral and acromioclavicular osteoarthritis.
--- NOTE | 2024-08-02 09:40 | ED_ITS ---
HPI - Fall General Chief Complaint: Fall Stated Complaint: FALL- HIP/FEMUR Source: patient Mode of arrival: EMS Limitations: no limitations History of Present Illness HPI Narrative: Patient is a 73 y/o female who presents to the ED via EMS with report of right hip pain. Patient reports she missed a step walking into her garage today and fell onto her right side. She complains of pain to her right hip. Unable to ambulate. EMS was contacted. Shortening and external rotation was noted to RLE. Patient did hit her head in the follow-up. Denied LOC. States she remembers the entire fall. She also complains of pain to her right shoulder. Denies numbness. Denies dizziness, lightheadedness. She is not on any anticoagulation. Has had arthritis in right hip and has been seeing Dr. Cavanaugh for this, states she was planning for a replacement soon. Related Data Home Medications ?Medication ?Instructions ?Recorded ?Confirmed ?Last Taken ?Type propranolol 80 mg capsule,24 80 mg PO DAILY TREMORS 02/19/19 07/06/24 Unknown History hr,extended release primidone 50 mg tablet 50 mg PO BID TREMORS 06/01/19 07/06/24 Unknown History azelastine 137 mcg (0.1 %) nasal 2 spray intranasal Q12H 01/18/20 07/06/24 Unknown History spray multivitamin 1 tablet PO DAILY 01/18/20 07/06/24 Unknown History triamcinolone acetonide 0.1 % 1 applic topical 3XW 02/06/20 07/06/24 Unknown History topical ointment aspirin 81 mg tablet,delayed 81 mg PO DAILY 10/20/20 07/06/24 Unknown History release (Adult Aspirin Regimen) cholecalciferol (vitamin D3) 75 75 mcg PO DAILY 10/20/20 07/06/24 Unknown History mcg (3,000 unit) tablet meclizine 25 mg tablet 25 mg PO TID PRN Dizziness 03/27/22 07/06/24 Unknown History ascorbic acid (vitamin C) 1,000 mg 1 g PO .QD 04/12/22 07/06/24 Unknown History capsule biotin 2,500 mcg capsule 2,500 mcg PO .QD 04/12/22 07/06/24 Unknown History carboxymethylcellulose sodium 1 drp EACH EYE TID PRN Dry Eyes 04/12/22 07/06/24 Unknown History (Refresh Contacts eye drops) nystatin 100,000 unit/gram topical 1 applic topical 3XW PRN INFECTION 04/12/22 07/06/24 Unknown History ointment calcium citrate 1,000 mg tablet 2,000 mg PO DAILY 09/01/22 07/06/24 Unknown History cyclosporine 0.05 % eye drops in a 1 drp EACH EYE Q12H 05/24/23 07/06/24 Unknown History dropperette cetirizine 10 mg tablet (Zyrtec) 10 mg PO DAILY PRN 12/08/23 07/06/24 Unknown History sumatriptan succinate 50 mg tablet See Rx Instructions PO .COMPLEX 12/08/23 07/06/24 Unknown History (Imitrex) Saccharomyces boulardii 250 mg 250 mg PO .QD 05/15/24 07/06/24 Unknown History capsule (Digest Probiotic (S.boulardii)) white petrolatum-mineral oil 57.3 1 applic EACH EYE QHS 05/15/24 07/06/24 Unknown History %-42.5 % eye ointment (Refresh P.M.) amlodipine 5 mg tablet (Norvasc) 5 mg PO DAILY 06/11/24 07/06/24 Unknown History Allergies Allergy/AdvReac Type Severity Reaction Status Date / Time sulfamethoxazole (From Allergy Severe Swelling Verified 07/06/24 14:31 Bactrim) of Lip/Tongue/Throat trimethoprim (From Bactrim) Allergy Severe Swelling Verified 07/06/24 14:31 of Lip/Tongue/Throat levofloxacin Allergy Unknown Rash Verified 07/06/24 14:31 nitrofurantoin Allergy STOMACH Verified 07/06/24 14:31 UPSET amoxicillin AdvReac STOMACH Verified 07/06/24 14:31 UPSET clavulanic acid (From AdvReac Diarrhea Verified 07/06/24 14:31 Augmentin) Review of Systems 2 Review of Systems: All systems reviewed & are unremarkable except as noted in HPI. All systems reviewed & are unremarkable except as noted in HPI and below PMFSH Past Medical History Medical History Excessive gas Pharyngitis Chronic upper back pain Allergic reaction Tremor of both hands GERD without esophagitis BMI 29.0-29.9,adult Shoulder pain, bilateral Knee osteoarthritis Trochanteric bursitis of left hip History of fracture of arm (~2013) History of breast cancer Abnormal kidney function Anxiety disorder, unspecified Cardiac murmur, unspecified Essential (primary) hypertension Hypothyroidism Migraine without aura and with status migrainosus, not intractable Mixed hyperlipidemia Tremor Vitamin D deficiency, unspecified Surgical History Surgical History Status post trigger finger release (~02/03/23) Right Thumb History of bladder surgery (~2016) History of left knee replacement (~2012) History of arthroscopy of left knee (~2007) History of hysterectomy (~2004) Family History Family History Father Hypertension, Onset Age: 63 Mother Hypertension, Onset Age: 59 Family history of malignant neoplasm Sibling Hypertension Family history of coronary artery disease Grandparent Diabetes mellitus, Onset Age: 83 Social History Social History Smoking status: Never smoker Second hand tobacco smoke exposure: Yes Alcohol intake: never Substance use: never Substance use type: does not use Do You Feel Safe in your Home?: Yes Lack of Transportation: No Lack of Food: Never True Current Housing: I Have Housing Concerned About Future Housing: No Difficulty Paying Gas/Electric Bills: No Difficulty Paying for Meds: No Currently Unemployed: No Education: High School Diploma/GED Difficulty w/ Childcare or Family Care: No Living arrangements: with family Occupation/Education: retired 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 HEAD: Normocephalic, atraumatic. No contusions NECK: No significant midline spinal tenderness. RESPIRATORY: Airway patent, respirations nonlabored. Clear to auscultation bilaterally, no rales, rhonchi, wheezing. CARDIOVASCULAR: Regular rate and rhythm without murmurs, rubs, or gallops. MUSCULOSKELETAL: Limited range of motion of right lower extremity due to pain. Shortening and external rotation noted to RLE. TTP throughout R posterior hip joint space. Sensation intact throughout right lower extremity. No tenderness throughout right anterior knee joint. SKIN: Warm, dry, normal color. NEURO: A&O X3. Speech clear. No ataxic movements. No focal deficits. PSYCHIATRIC: Appropriate mood and affect. Normal interaction. Course Vital Signs Vital signs: Vital Signs Temperature 97.5 F L 08/02/24 09:20 Pulse Rate 55 L 08/02/24 09:20 Respiratory Rate 12 08/02/24 09:20 Blood Pressure 203/82 H 08/02/24 09:20 Pulse Oximetry 95 08/02/24 09:20 Oxygen Delivery Room Air 08/02/24 09:20 Temperature 97.5 F L 08/02/24 09:20 Pulse Rate 88 08/02/24 11:45 Respiratory Rate 14 08/02/24 11:45 Blood Pressure 151/66 H 08/02/24 11:45 Pulse Oximetry 94 08/02/24 11:45 Oxygen Delivery Room Air 08/02/24 09:20 MDM - Fall MDM Narrative Medical decision making narrative: Patient presented to ED status post ground level mechanical fall onto right side, pain to right hip. +HI, no LOC. Patient hypertensive upon arrival. She does have history of this. States she took her medication today. Possibly pain related. Will continue to monitor. Vital signs are otherwise stable. X-ray of right hip/pelvis showing intertrochanteric femur fx. Consistent with exam and injury. Preop workup initiated. Chest x-ray is clear. CT brain and cervical spine without traumatic findings. X-ray of right shoulder with chronic healing humerus fracture. No new fracture. Patient has previously followed with Dr. Cavanaugh for right hip pain/arthritis. 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 Received call back from JEREMIAH Luevano for Dr. Cavanaugh, advised to admit under hospitalist service, will take for surgery tomorrow around 3-330pm. NPO after midnight. Discussed case with Stephie Olguin NP hospitalist, accepted patient for admission. Patient and family in agreement with plan. Medical Records Attestation: I reviewed the patient's medical records. Lab Data Attestation: I reviewed the patient's lab results. 08/02/24 11:40 08/02/24 11:40 Labs: Lab Results 05/01/25 Range/Units 11:40 WBC 8.2 (4.5-10.0) K/mm3 RBC 4.17 L (4.2-5.4) M/mm3 Hgb 12.1 (12.0-15.0) g/dL Hct 38.7 (37.0-47.0) % MCV 92.8 (80-100) fl MCH 29.0 (26-34) pg MCHC 31.3 L (32-36) g/dl RDW 13.2 (11.5-14.5) % Plt Count 161 (150-375) k/mm3 MPV 9.6 (7.4-10.4) fl Immature Gran % (Auto) 0.5 (0-0.5) % Neut % (Auto) 75.4 H (45.5-73.1) % Lymph % (Auto) 15.9 L (18.3-44.2) % [place] % (Auto) 6.1 (2.6-8.5) % Eos % (Auto) 1.6 (0-4.4) % Baso % (Auto) 0.5 (0.2-1.2) % Lymph # (Auto) 1.30 (0.9-3.2) K/mm3 [place] # (Auto) 0.5 (0.1-0.6) K/mm3 Eos # (Auto) 0.1 (0-0.3) K/mm3 Baso # (Auto) 0.0 (0.0-0.1) K/mm3 Abs Immat Gran (auto) 0.04 H (0.00-0.031) K/mm3 Absolute Neuts (auto) 6.2 (1.3-6.7) K/mm3 Absolute Nucleated RBC 0.000 (0.0-0.012) K/mm3 Nucleated RBC % 0.0 (0.0-0.2) % PT 13.1 (11.1-14.7) Seconds INR 1.0 APTT 29.4 (22.3-36.8) Seconds Sodium 134 L (137-145) mmol/L Potassium 4.2 (3.4-5.0) mmol/L Chloride 99 (98-107) mmol/L Carbon Dioxide 30 (22-30) mmol/L Anion Gap 5 (4-12) mmol/L BUN 17 (7-17) mg/dL Creatinine 0.80 (0.7-1.0) mg/dL Estim Creat Clear Calc 59 ml/min Estimated GFR > 60 (59 - ) Glucose 124 H (65-110) mg/dL Calcium 8.8 (8.4-10.2) mg/dL Total Bilirubin 0.6 (0.2-1.3) mg/dL AST 31 (14-36) U/L ALT 24 (6-35) U/L Alkaline Phosphatase 71 (38-126) U/L Total Protein 7.0 (6.3-8.2) g/dL Albumin 4.0 (3.5-5.1) g/dL Imaging Data Attestation: I personally reviewed and interpreted this imaging study as follows: Radiologist's impression: ITS Impressions Head CT 08/02/24 10:57 Impression: No significant abnormality seen. Cervical Spine CT 08/02/24 10:58 IMPRESSION: 1. Mild cervical spondylosis. No acute osseous abnormality. Chest X-Ray 08/02/24 11:08 IMPRESSION: 1. No acute cardiopulmonary disease. Shoulder X-Ray 08/02/24 11:09 IMPRESSION: 1. Old proximal right humeral fracture which is healed in near-anatomic alignment. No acute osseous abnormality. 2. Mild right glenohumeral and acromioclavicular osteoarthritis. Hip/Pelvis X-Ray 08/02/24 11:12 IMPRESSION: 1. Mildly displaced and angulated comminuted intertrochanteric fracture the proximal right femur. ECG Data EKG #1: Attestation: I personally reviewed and interpreted this ECG as follows: ECG completion date: 08/02/24 ECG completion time: 12:02 EKG Interpretation: bradycardia (51), sinus rhythm and no ST changes Discharge Plan Discharge Clinical Impression: Closed intertrochanteric fracture of right femur, Fall from ground level, Closed head injury Patient Disposition: Still a Patient Condition: Stable Patient Language: [place] Islander Prescriptions: No Action meclizine 25 mg Tablet 25 mg PO TID PRN (Reason: Dizziness) propranolol 80 mg capsule,extended release 24 hr 80 mg PO DAILY triamcinolone acetonide 0.1 % ointment 1 applic topical 3XW aspirin [Adult Aspirin Regimen] 81 mg tablet,delayed release (DR/EC) 81 mg PO DAILY cholecalciferol (vitamin D3) 75 mcg (3,000 unit) tablet 75 mcg PO DAILY cyclosporine 0.05 % dropperette 1 drp EACH EYE Q12H Refresh P.M. 57.3-42.5 % ointment 1 applic EACH EYE QHS Saccharomyces boulardii [Digest Probiotic (S.boulardii)] 250 mg capsule 250 mg PO .QD meloxicam 15 mg tablet 15 mg PO DAILY Qty: 30 3RF tizanidine 2 mg tablet 2 mg PO TID PRN (Reason: muscle spasticity) Qty: 20 0RF primidone 50 mg tablet 50 mg PO BID nystatin 100,000 unit/gram ointment 1 applic topical 3XW PRN (Reason: INFECTION) biotin 2,500 mcg capsule 2,500 mcg PO .QD ascorbic acid (vitamin C) 1,000 mg capsule 1 g PO .QD Refresh Contacts Drops 1 drp EACH EYE TID PRN (Reason: Dry Eyes) calcium citrate 1,000 mg tablet 2,000 mg PO DAILY sumatriptan succinate [Imitrex] 50 mg tablet See Rx Instructions PO .COMPLEX Rx Instructions: take 1 tab at onset of headache; if no relief may repeat 1 tab after at least 2 hrs; max = 4 tabs/24 hr PO cetirizine [Zyrtec] 10 mg tablet 10 mg PO DAILY PRN amlodipine [Norvasc] 5 mg tablet 5 mg PO DAILY multivitamin Tablet 1 tablet PO DAILY azelastine 137 mcg (0.1 %) Aerosol,[place] 2 spray INTRANASAL Q12H atorvastatin 40 mg tablet 40 mg PO HS Qty: 90 3RF losartan 100 mg tablet 100 mg PO DAILY Qty: 90 4RF amlodipine 10 mg tablet 5 mg PO DAILY Qty: 90 1RF benzonatate 100 mg capsule 100 mg PO TID PRN (Reason: cough) Qty: 30 0RF albuterol-budesonide 90-80 mcg/actuation HFA aerosol inhaler 2 inh inhalation ONCE Qty: 5.9 0RF Rx Instructions: as a single dose; may repeat up to 6 doses per day (12 inhalations) citalopram 10 mg tablet 10 mg PO DAILY Qty: 90 2RF omeprazole 40 mg capsule,delayed release(DR/EC) See Rx Instructions .ROUTE .COMPLEX Qty: 90 0RF Dose Instruction: Take 1 capsule by mouth once daily Rx Instructions: Take 1 capsule by mouth once daily Follow-up/Referrals: George Sun MD [Primary Care Provider] -
--- NOTE | 2024-08-02 09:47 | ECG_ITS ---
Test Date: 2024-08-02 12:02:22 Measurements Intervals [place] Rate: 51 P: 53 NE: 200 QRS: 24 QRSD: 93 T: 32 QT: 443 QTc: 411 Interpretive Statements SINUS BRADYCARDIA POSSIBLE LEFT ATRIAL ENLARGEMENT [-0.1mV P WAVE IN V1/V2] No previous ECG available for comparison Electronically Signed On 08-03-2024 18:58:15 CDT by Paul Boswell
[2024-08-02] MEDS: ONDANSETRON INJ 4 MG/2 ML VIAL IV PUSH ×4 (09:58→20:33)
[2024-08-02] MEDS: MORPHINE SULFATE (*CRX) 4 MG/ML INJ IV PUSH ×3 (09:59→17:17)
--- OUTSIDE RECORDS SUMMARY | 2024-08-02 10:34 | XMS_ITS | Clinical Summary ---
Author Organization [facility] Address [address] [place] [address] Care Team Providers Care Venture Capitalist Name Role Phone George Sun MD Primary Care Provider [phone] Source Comments [facility],non-owned Affiliates and Associated Physician Practices is amultiple site organization consisting of ambulatory clinics and hospital sitesin [place], [place], [place] and [place]. This disclosure is being madepursuant to the Care Everywhere program and may not contain all information available regarding this patient. Last updated 17.[facility] Allergies Active Allergy Reactions Criticality Noted Date Comments Sulfamethoxazole W-Trimethoprim Swelling High 10/2019 Azithromycin Dizziness Medium 01/09/2020 Medications * Be aware that medications may not be up to date on this document. Alwaysverify current medications with the patient. SUMAtriptan (Imitrex) 50 MG tablet Take 1 (one) tablet by mouth 2 times daily as needed 0 Active propranolol CR 24hr (INDERAL LA) 80 MG capsule Take 1 (one) capsule by mouth once daily 0 Active primidone (MYSOLINE) 50 MG tablet Take 1 (one) tablet by mouth 2 times daily 0 Active omeprazole (PRILOSEC) 40 MG capsule Take 1 (one) capsule by mouth once daily 0 Active losartan (COZAAR) 100 MG tablet Take 1 (one) tablet by mouth once daily 0 Active fluticasone propionate (FLONASE) 50 MCG/ACT nasal spray [place] 2 (two) sprays into each nostril once daily 0 Active citalopram (CELEXA) 10 MG tablet Take 1 (one) tablet by mouth once daily 0 Active atorvastatin (LIPITOR) 40 MG tablet Take 1 (one) tablet by mouth once daily 0 Active multivitamins (ONE A DAY) capsule Take 1 (one) capsule by mouth once daily Active celecoxib (CeleBREX) 200 MG capsule Take 1 (one) capsule by mouth 2 times daily 2 Active azelastine (Astepro) 205.5 MCG/SPRAY nasal spray [place] 2 (two) sprays into each nostril 2 times daily 1 Active meclizine (Antivert) 25 MG tablet Take 1 (one) tablet by mouth 2 times daily as needed for Dizziness Active aspirin EC (Aspir-Low) 81 MG tablet Take 1 (one) tablet by mouth once daily Active cetirizine (ZyrTEC ALLERGY) 10 MG gel capsule Take 1 (one) capsule by mouth once daily Active vitamin D (Cholecaciferol ) 125 MCG (5000 UT) capsule Take 1 (one) capsule by mouth once daily Active calcium citrate-vitamin D 200-250 MG-UNIT tablet Take 2 (two) tablets by mouth once daily Active Biotin 2500 MCG Take 1 (one) capsule by mouth once daily Active vitamin C (Ascorbic Acid) 1000 MG tablet Take 1 (one) tablet by mouth once daily Active Carboxymethylce llul-Glycerin (REFRESH RELIEVA OP) by Ophthalmic route once daily Active White Petrolatum-Mine ral Oil (GenTeal Tears Night-Time) by Ophthalmic route at bedtime Active acetaminophen (Tylenol) 325 MG tablet Take 500 mg by mouth every 4 hours as needed for Fever or Pain Maximum allowable Acetaminophen amount = 4 Grams (4000 mg) / 24 hours. Active Restasis MultiDose 0.05 % ophthalmic suspension Instill 1 (one) drop into both eyes 2 times daily 3 Active hydroCHLOROthia zide (Hydrodiuril) 12.5 MG Take 1 (one) tablet by mouth once daily 3 Active triamcinolone acetonide (Kenalog) 0.1 % ointmentIndicat ions:Lichen planus Apply to external vulvar tissues twice daily. 30 g 3 3 Active nystatin (Mycostatin) 291498 UNIT/GM ointmentIndicat ions:History of candidiasis Mix with the triamcinolone ointment and apply to external vulvar tissues twice daily. 30 g 30 g 3 3 Active amLODIPine (Norvasc) 5 MG tablet Take 1 (one) tablet by mouth once daily 4 Active albuterol HFA (Proventil; Ventolin; Proair) 108 (90 Base) MCG/ACT inhaler Take 2 (two) puffs by mouth every 4 hours as needed for Shortness of Breath 4 Active Active Problems Problem Noted Date Diagnosed Date Compression fracture of L1 lumbar vertebra 07/01 Lichen planus 05/28/2020 History of candidiasis 05/28/2020 Essential tremor 03/03/2015 Overview (01/30/2020): Last Assessment & Plan: - 69 y.o. woman with a 5-decade history of slowly progressive tremor in both hands on posture and action. After some initial trials with primidone that were accompanied by drowsiness, she was able to tolerate primidone through gradual uptitration, and is not taking 100 mg a day along with propranolol 80 mg a day. This combination has yielded considerable (at least subjectively) improvement, and her tremor is now adequately controlled, as it interferes only with few fine motor tasks. - The examination revealed high-frequency tremor in both hands that was mild on posture and mild to moderate on action. There was no head or voice tremor. Her balance was affected only in terms of reactive balance (she did not pass the pull test), but she was able to walk in tandem without problems. - The positive pull test was surprising and stands alone as a finding because she has no other parkinsonian sign. At this time, I do not think Ms. Gould has parkinsonism. I explained that her balance problem could be the beginning of parkinsonism but at this point I consider it a non-specific finding. She has been concerned about PD because her maternal grandfather had it. - Falls: no falls NEUROPSYCHOLOGICAL EVALUATION: INTERPRETATION Normal cognitive performance on MMSE; Normal cognitive performance on MoCA. No evidence of depression on GDS; No evidence of depression on HADS. No evidence of anxiety on HADS. No evidence of daytime drowsiness on [place] scale. No evidence of REM Behavior Disorder (RBD) on Stiasny-Kolster scale. These scores establish a baseline for potential future reference and do not require a change in current plan. PLAN (phrased as addressed to the patient): - As we discussed, I agree with the diagnosis of essential tremor. - Your tremor is now mild, likely thanks to the effects of primidone and propranolol - I suggest continuing these two medications at their current doses - If you start feeling unsteady or if you fall, contact my office or Dr. Marcel Taylor's office for a possible referral to physical therapy for gait - If your tremor becomes worse and bothersome in the future, the next step I would consider would be an increase of primidone up to 100 mg 2x day, or the addition of gabapentin 300 mg caps, 1 cap 3x/day. - As you requested, my office will mail you a copy of this report. - As we discussed, you will follow up with Dr. Marcel Taylor. I will be happy to see you again if new questions arise. This visit s total [id number] time was 60 minutes. Of this time, I spent at least 35 minutes counseling the patient regarding differnee between essential tremor and parkinsonism, and choice of medications for tremor. NOTE: The present note includes, below, the line Ambulatory referral to Neurology . This statement is included as a mandatory component of the note template that I do not have the ability to remove. This statement has no clinical significance. I am NOT ordering a referral to Neurology. Family History Medical History Relation Name Comments Hypertension Father Diabetes; unknown type Maternal Grandmother Hypertension Mother Relation Name Status Comments Father Maternal Grandmother Mother Social History Tobacco Use Types Packs/Day Years Used Date Smoking Tobacco: Never Passive Smoke Exposure: Yes Smokeless Tobacco: Never Tobacco Cessation:Counseling Given: Not Answered Alcohol Use Standard Drinks/Week Comments Never 0 (1 standard drink = 0.6 oz pur e alcohol) AUDIT-C Answer Date Recorded Q1: How often do you have a drink containing alc ohol? 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 Gender Identity Not on file Sexual Orientation Not on file Last Filed Vital Signs Vital Sign Reading Time Taken Comments Blood Pressure 138/84 12/06/2023 9:52 AM CDT Pulse - - Temperature 36.2 C (97.2 F) 12/06/2023 9:41 AM CDT Respiratory Rate - - Oxygen Saturation - - Inhaled Oxygen Concentration - - Weight 81.2 kg (179 lb) 12/06/2023 9:41 AM CDT Height 165.1 cm (5' 5 ) 12/06/2023 9:41 AM CDT Body Mass Index 29.79 12/06/2023 9:41 AM CDT Plan of Treatment Upcoming Encounters Date Type Department Care Team (Late st Contact Info) Description 12/11/2024 9:50 AM CDT Office Visit [facility] [address], [facility] [address] [place] [address] Augustina Lemons MD [address] [address] [place] [address] Health Maintenance Due Date Last Done Comments BONE DENSITY TESTING 1950 COLOGUARD (AGES 45-75) - COLON CA SCREENING 1949 COLON MONITORING 1949 COLONOSCOPY - COLON CA SCREENING 1949 CT COLONOGRAPHY - COLON CA SCREENING 1950 Colorectal Cancer Screening 1950 FIT - COLON CA SCREENING 1949 FLEX SIG - COLON CA SCREENING 1950 MAMMOGRAM 1950 MEDICARE AWV 12 MONTHS 1950 HEPATITIS C SCREENING 08/14/1967 DTAP/TDAP/TD VACCINES (1 - Tdap) 1968 PNEUMOCOCCAL VACCINE 50+ (1 of 1 - PCV) 08/19/1999 ZOSTER VACCINE (1 of 2) 08/19/1999 COVID-19 VACCINE (4 - season) 2023 03/07/2021, 06/23/2020, 05/15/2020 DEPRESSION SCREENING 04/04/2024 Respiratory Syncytial Virus (RSV) Vaccine Pt: or over 60 yrs (1 - 1-dose 75+ series) 2024 INFLUENZA VACCINE (Season Ended) 2024 01/05/2022, 01/16/2021, 12/24/2019, Additional history exists HEPATITIS B VACCINE Aged Out No longe r eligible based on patient's age to complete this topic HIB VACCINE Aged Out No longer eligi ble based on patient's age to complete this topic HPV VACCINE Aged Out No longer eligi ble based on patient's age to complete this topic MENINGOCOCCAL (Group B) VACCINE SHARED DECISION-MAKING Aged Out No longer eligible based on patient's age to complete this topic MENINGOCOCCAL GROUPS A/C/Y/W VACCINE Aged Out No longer eligible based on patient's age to complete this topic Insurance MEDICARE MEDICARE SUPPLEMENT PAYOR GENERIC Care Teams Venture Capitalist Relationship Specialty Start Date End Date George Sun MD [address] [place] [address] PCP - General 11/14/20
--- OUTSIDE RECORDS SUMMARY | 2024-08-02 10:34 | XMS_ITS | Referral Summary ---
Author Organization [facility] Address [address] [place] [address] Care Team Providers Care Assistant Tennis Professional Name Role Phone George Sun MD Primary Care Provider + [phone] Allergies Active Allergy Reactions Criticality Noted Date Comments Azithromycin Dizziness Low 01/09/2020 Sulfamethoxazole-Trimethoprim Medications primidone (MYSOLINE) 50 mg tablet Take 1 tablet (50 mg total) by mouth 4 (four) times a day Active propranolol LA (INDERAL LA) 80 mg 24 hr capsule Take 1 capsule (80 mg total) by mouth daily Active atorvastatin (LIPITOR) 40 mg tablet Take 1 tablet (40 mg total) by mouth daily Active omeprazole (PriLOSEC) 40 mg capsule Take 1 capsule (40 mg total) by mouth daily Active citalopram (CeleXA) 10 mg tablet Take 1 tablet (10 mg total) by mouth daily Active losartan (COZAAR) 100 mg tablet Take 1 tablet (100 mg total) by mouth daily Active SUMAtriptan (IMITREX) 100 mg tabletIndicati ons:Migraine Take 0.5 tablets (50 mg total) by mouth once as needed for migraine Active fluticasone propionate (FLONASE) 50 mcg/actuation nasal spray Administer 1 spray into each nostril daily Active triamcinolone (KENALOG) 0.1 % ointment Apply to external vulvar tissues twice daily. 0 Active meclizine (ANTIVERT) 25 mg tablet Take 1 tablet (25 mg total) by mouth 3 (three) times a day as needed for dizziness Active aspirin 81 mg chewable tablet Take 1 tablet (81 mg total) by mouth daily Active cetirizine (ZyrTEC) 10 mg tablet Take 1 tablet (10 mg total) by mouth daily Active cholecalcifero l (VITAMIN D-3) 5,000 unit capsule Take 1 capsule (5,000 Units total) by mouth daily Active calcium citrate-vitami n D2 1,500-200 mg-unit tablet Take by mouth A ctive biotin 2,500 mcg capsule Take by mouth Acti ve multivitamin capsule Take 1 capsule by mouth daily Active carboxymethylc ellulose (REFRESH LIQUIGEL) 1 % ophthalmic liquid gel drops Administer 1 drop into both eyes Active artificial tears,hypromel lose, 0.3 % drops Administer into affected eye(s) Active nystatin ointment MIX WITH TRIAMCINOLONE OINTMENT AND APPLY TO EXTERNAL VULVAR TISSUES TWICE DAILY 0 Active azelastine 205.5 mcg (0.15 %) spray,non-aero paulette USE 1 TO 2 SPRAY(S) TO EACH NOSTRIL TWICE DAILY 1 Active cycloSPORINE (Restasis MultiDose) 0.05 % drops Administer 1 drop into affected eye(s) 2 (two) times a day 3 Active cycloSPORINE (RESTASIS) 0.05 % ophthalmic emulsion 1 drop 2 (two) times a day 4 Active amLODIPine (NORVASC) 10 mg tablet Take 1 tablet (10 mg total) by mouth nightly 90 tablet 6 4 Active Active Problems Problem Noted Date Diagnosed Date Compression fracture of L1 lumbar vertebra 07/01 Essential tremor 03/03/2015 Assessment & Plan (09/17/2019 1:16 PM CDT): - 69 y.o. woman with a 5-decade [...] HADS. No evidence of daytime drowsiness on [place] scale. No evidence of REM Behavior Disorder [...] new questions arise. This visit s total xlcq-ka-vein time was 60 minutes. Of this time, [...] am NOT ordering a referral to Neurology. 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 [facility] Gender Identity Not on file Sexual Orientation Not on file Occupation Industry Job Start Date Job End Date Retired Not on file Not on file Not on file Last Filed Vital Signs Vital Sign Reading Time Taken Comments Blood Pressure 128/68 12/12/2023 11:07 AM CDT Pulse 55 12/12/2023 11:07 AM CDT Temperature 36.1 C (96.9 F) 06/25/2020 9:03 AM CDT Respiratory Rate 14 12/12/2023 11:07 AM CDT Oxygen Saturation 98% 12/12/2023 11:07 AM CDT Inhaled Oxygen Concentration - - Weight 81.6 kg (180 lb) 12/12/2023 11:07 AM CDT Height 165.1 cm (5' 5 ) 12/12/2023 11:07 AM CDT Body Mass Index 29.95 12/12/2023 11:07 AM CDT Plan of Treatment Not on file Insurance MEDICARE [facility] MEDICARE COMMERCIAL GENERIC MEDICARE [facility] Care Teams Assistant Tennis Professional Relationship Specialty Start Date End Date George Sun MD PCP - General 12/06/13
--- OUTSIDE RECORDS SUMMARY | 2024-08-02 10:34 | XMS_ITS | Clinical Summary ---
Author Organization [facility] Address [address] [place] [phone] Care Team Providers Care Service Station Helper Name Role Phone George Sun MD Primary Care Provider + [phone] Allergies Active Allergy Reactions Criticality Noted Date [...] HADS. No evidence of daytime drowsiness on [place] scale. No evidence of REM Behavior Disorder [...] new questions arise. This visit s total dwoj-sx-buxf time was 60 minutes. Of this time, [...] NOT ordering a referral to Neurology. 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 Gender Identity Not on file Sexual Orientation Not on file Occupation Industry Job Start Date Job End Date Retired Not on file Not on file Not on file Obstetrics History Last Filed Vital Signs Vital Sign Reading [...] 12/12/2023 11:07 AM CDT Plan of Treatment Health Maintenance Due Date Last Done Comments Breast Cancer Screening-Mammogram 1950 Colon Cancer Screening-Colonoscopy 1950 Hepatitis C Screening 1950 Osteoporosis Screening-Bone Density Scan 1950 DTaP/Tdap/Td Vaccine (1 - Tdap) 1960 Hepatitis B Screening 08/19/1967 Well Visit 65+ 2014 Pneumococcal vaccine 65+ (2 of 2 - PCV) 01/24/2017 01/25/2016 Zoster Vaccine (2 of 2) 02/10/2019 12/16/2018 Depression Screening 09/16/2020 09/17/2019 Influenza Vaccine (Season Ended) 2024 01/26/2018, 01/25/2016, 01/15/2013, Additional history exists Fall Risk Assessment 12/11/2024 12/12/2023, 05/11/19 22 Insurance MEDICARE [facility] MEDICARE COMMERCIAL GENERIC MEDICARE [facility] Care Teams Service Station Helper Relationship Specialty Start Date End Date George Sun MD PCP - General 12/06/13
--- OUTSIDE RECORDS SUMMARY | 2024-08-02 10:34 | XMS_ITS | Encounter Summary ---
Author Organization [facility] Address [address] [facility] [address] Care Team Providers Care Leasing Consultant Name Role Phone George Sun MD Primary Care Provider [phone] Encounter Details Date Type Department Care Team (Late Contact Info) Description 10/24/2018 Lab Requisition [facility] Care DermPath Lab [address] [facility] [place] [phone] George Sun MD [address] [place] [address] Social History Tobacco Use Types Packs/Day Years Used Date Smoking Tobacco: Never Assessed Comments Unknown Sex and Gender Information Value Date Recorded Sex Assigned at Not on file 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 Gender Identity Not on file Sexual Orientation Not on file documented as of this encounter Plan of Treatment Upcoming Encounters Date Type Department Care Team (Late Contact Info) Description 12/11/2024 9:50 AM CDT Office Visit [facility] - PRINT SHOP MANAGER [address], [facility] [address] [place] [address] Augustina Lemons MD [address] [facility] [address] [place] [address] documented as of this encounter Procedures Procedure Name Priority Date/Time Associated Diagnosis Comments DERMATOPATHOLOGY Routine 10/20/2018 12:0 0 AM CDT documented in this encounter Results * DERMATOPATHOLOGY (10/20/2018 12:00 AM CDT) Case Report Dermatopathology Report Case: [id number] Authorizing Provider: George Sun MD Collected: 10/20/2018 12:00 AM Pathologist: Rose Marie Lo MD Received: 10/24/2018 12:23 PM Specimen: Skin, left bhandari 12:25 PM CDT DERMATOPATHOLOGY LABORATORY Final Diagnosis Specimen A. SKIN, left bhandari: DERMATOFIBROMA (D23.9) PRESENT AT MARGIN 12:25 PM CDT DERMATOPATHOLOGY LABORATORY Clinical History Changing lesion. Check margins 12:25 PM CDT DERMATOPATHOLOGY LABORATORY Gross Description Specimen A: Received is one formalin filled container labeled with the patient's name and designated left bhandari. The specimen consists of a piece of skin measuring 14x6x2 mm. The epidermal surface has a papule that is centrally located measuring 4x4x1 mm. The specimen is inked green, bisected and submitted in 1 cassette. Jar 0. 12:25 PM CDT DERMATOPATHOLOGY LABORATORY Microscopic Description Specimen A. SKIN, left bhandari: There is epidermal hyperplasia. Within the dermis, there are fibrohistiocytic cells in haphazard array among coarse collagen bundles. This lesion is present at the base of the specimen. 12:25 PM CDT DERMATOPATHOLOGY LABORATORY Disclaimer An external and internal positive and negative controls are appropriate for the histochemical, immunohistochemical and immunofluorescence stain(s) in this case (if any), except where stated explicitly. The performance characteristics of the stain(s) cited in this report were developed and its performance characteristic determined by the Dermatopathology Laboratory at [facility], directed by Dr. Suzanne Lee. These tests need not be, and therefore are not, approved by the [place] Food and Drug Administration. The tests are used for clinical purposes. Billing Codes Specimen Charges Stain Charges 51401 1 9 12:25 PM CDT DERMATOPATHOLOGY LABORATORY Embedded Images 9 12:25 PM CDT DERMATOPATHOLOGY LABORATORY Pathology/Cytolog y TISSUE SPECIMEN FROM SKIN / Unknown 10/20/2018 10/24/2018 12:23 PM CDT George Sun MD LAB - PATHOLOGY/CYTOLOGY [facility] Final Result DERMATOPATHOLOGY LABORATORY [facility] - Department of Dermatology [address] [facility] 5th Floor Lab [address] [phone] documented in this encounter Visit Diagnoses Not on filedocumented in this encounter Care Teams Leasing Consultant Relationship Specialty Start Date End Date George Sun MD [address] [place] [address] PCP - General 11/14/20 documented as of this encounter
--- OUTSIDE RECORDS SUMMARY | 2024-08-02 10:34 | XMS_ITS | Data Portability ---
Author Organization [facility], [address] [place] [address] ([place]) Address [address] [place] [address] Assessment Encounter Date Assessment Date Assessment LastModified by Organization Details LastModified Time 01/16/2024 01/16/2024 I had a thorough discussion with the patient regarding the risks of a colonoscopy and the risk of bleeding and perforation, both of which may require the need for surgery. Benefits of colonoscopy discussed included identification and removal of polyps, thereby aiding in preventing or diagnosing colon cancer; ability to biopsy abnormalities in the colon lining; and finally to aid in determining possible sources of blood loss. Alternative testing with flexible sigmoidoscopy and barium enema were discussed. Additionally, it was explained that a colonoscopy can be both diagnostic and therapeutic for many conditions. The patient understands all of the above and wishes to proceed with the colonoscopy. [email or web address] Not available 01/16/2024 10:32:59 Plan of Treatment Reminders Order Date Submit Date Provider Last Modified By Organization Details Last Modified Time Details Appointments Imaging 5.PRO 2024 10:00A M Radiology Not available Not available Not available Lab None recorded . Referral None recorded . Procedures None recorded . Surgeries None recorded . Imaging None recorded . Medication Orders None recorded . Patient TargetsNo targets recorded. Patient InstructionsNo instructions recorded. Reason for Referral None Reported. Results Created Date Observation Date Name Description Value Unit Range Abnormal Flag Note LastModifiedBy Organization Detail LastModifiedTime 01/16/2001/17/2024 surgi carlene patho logy study tissue exam biopsy [facility] [address] [place] [address] Ph. Corona Main MD, PhD, Medic al Direc HAWA Greene MD Patie nt: MANOLO ARAUJO ID: [id number] Repor t Statu s: Final :0 1950 Case #: [id number] Age: 73 Y Gende r: F Date Colle cted: 01/15 MRN # : [id number] Date Recei nunu: 01/15 Repor sander Date: 01/16 FINAL DIAGN OSIS: Colon , trans verse polyp , biops y: - Minut e fragm ent of colon ic mucos a with hyper plast ic saab es, most consi stent with hyper plast ic polyp Elect clementina osborn Verif ied by Boo Gilman MD Elect clementina Signgibran turhanh 01/16 10:10 SPECI MEN SOURC E: Colon , trans verse polyp , biops y GROSS DESCR IPTIO N: The speci men conta iner( s) and requi sitio n have the same patie nt name. Recei nunu in 10% neutr al buffe red forma juan for forma juan-f ixed paraf fin-e mbedd ed secti ons label ed A, trans verse colon polyp is a singl e fragm ent of bobby- hargrove soft tissu e that is 0.2 cm in [facility] [employer] nona. The speci men is entir dena submi tted for histo logic study in one casse tte. CLINI CAR[facility]E INFOR MATIO N: Colon scree lb. Not Available [facility] [address], [address], 01/17/2024 11:12:57 Result Notes None recorded. Problems Name Problem SNOMED Code Status Onset Date Resolution Date Notes Provider Name and Address Organization Details Recorded Time Gastroesophage al reflux disease 588172162 Active 2023 Sonia hernandez [facility] 17:10:30 Hypertensive disorder 62701362 Active 2023 Sonia hernandez [facility] 4 17:10:48 Environmental allergy 027394627 Active 2023 Sonia hernandez [facility] 4 17:11:05 Depressive disorder 59210506 [facility] 17:11:14 Anxiety 78370308 Active 2023 [facility] 17:11:21 Hyperlipidemia 51277022 Active 2023 [facility] 4 17:11:33 Lichen planus 7619035 Active 2023 [facility] 4 17:12:21 Candidiasis 76958491 Active 2023 [facility] 4 17:12:33 Asthma 894757905 Active 2023 [facility] 4 17:12:47 Problem Notes None recorded. Procedures Surgical History Date Name Laterality Status Provider Name and Address Organization Details Recorded Time 4 colonoscopy completed Anju Webb [facility] 01/20/2024 09:01:55 Imaging Results None recorded. Procedure Notes None recorded. Medical Equipment None Reported. Allergies Allergen ID Allergen Name Allergen Category Reaction Reaction Severity Criticality Documentation Date Start Date Code Code System Note Provider Name and Address Organization Details Recorded Time 0067870 Augmentin medicatio n Not available Not available Not available 05/04/20232019 65574 2 RxNorm Not Available [facility] 4 04:14:21 2823724 nitrofura ntoin medicatio n Not available Not available Not available 05/04/20232019 7454 RxNorm Not Available [facility] 4 04:14:21 1460679 Bactrim medicatio n swelling severe Not available 05/04/20232005 33720 9 RxNorm React ion: Dizzi ness; Not Available [facility] 4 04:14:24 4822559 azithromy jagjit medicatio n dizziness Not available Not available 05/04/20232005 02337 RxNorm React ion: Dizzi ness; Sonia Veelz [facility] 4 17:09:34 3084082 Substance with sulfonami de structure and antibacte rial mechanism of action (substanc e) medicatio n Not available Not available Not available 01/12/2024 74442 8003 SNOMED Sonia Velez [facility] 4 17:09:22 Medications Name Sig Start Date Stop Date Status Note LastModified by Organization Details LastModified Time celecoxib 200 mg capsule Take 1 capsule every day by oral route. 01/11 completed Not Available Not Available Not Available atorvastati n 40 mg tablet Take 1 tablet every day by oral route. active Not Available Not Available No t Available primidone 50 mg tablet Take 2 tablets every day by oral route. active Not Available Not Available No t Available Celexa 10 mg tablet Take 1 tablet every day by oral route. active Not Available Not Available No t Available cetirizine 10 mg tablet Take 1 tablet every day by oral route. 01/15 completed Not Available Not Available Not Available meclizine 25 mg tablet Take 1 tablet 3 times a day by oral route. active Not Available Not Available No t Available hydrochloro thiazide 12.5 mg capsule Take 1 capsule every day by oral route. 01/11 completed Not Available Not Available Not Available losartan 100 mg tablet Take 1 tablet every day by oral route. active Not Available Not Available No t Available Restasis 0.05 % eye drops in a dropperette INSTILL 1 DROP INTO AFFECTED EYE(S) BY OPHTHALMI C ROUTE EVERY 12 HOURS active Not Available Not Available No t Available sumatriptan active Not Available Not A vailable Not Available Vitamin C active Not Available Not Corrina ilable Not Available nystatin active Not Available Not Avai lable Not Available calcium active Not Available Not Avail able Not Available omeprazole active Not Available Not Av ailable Not Available propranolol active Not Available Not A vailable Not Available biotin active Not Available Not Availa ble Not Available amlodipine active Not Available Not Av ailable Not Available Vitamin D active Not Available Not Corrina ilable Not Available Refresh active Not Available Not Avail able Not Available Tylenol active Not Available Not Avail able Not Available triamcinolo ne (bulk) active Not Available Not Available No t Available Multi Vitamin active Not Available Not Available Not Available Flonase Allergy Relief 50 mcg/actuati on nasal spray,suspe nsion [place] 1 spray every day by intranasa l route. active Not Available Not Available No t Available Adult Aspirin Regimen 81 mg tablet,eden yed release Take 1 tablet every day by oral route. active Not Available Not Available No t Available Sutab 1.479-0.188 -0.225 gram tablet USE DIRECTED 2023 active Not Available Not Available Not Avai lable Astepro Allergy 205.5 mcg (0.15 %) nasal spray [place] 1 spray twice a day by intranasa l route. active Not Available Not Available No t Available albuterol 90 mcg-budeson mariam 80 mcg/actuati on HFA aerosol inhaler Inhale by inhalatio n route. active Not Available Not Available No t Available Vitals None Recorded Social History None recorded. Functional Status None recorded. Mental Status None recorded. Family History Nothing Reported. Medical History No medical history recorded. Gynecological HistoryNo gynecological history recorded. Obstetrics History GPAL:G 0 P 0 0 0 0 Past Encounters Encounter ID Performer Location Encounter Start Date Encounter Closed Date Diagnosis/Indication Diagnosis SNOMED-CT Code Diagnosis ICD10 Code Diagnosis Note [id number] Robin Cueto MD [facility] Anesthesi [facility] S [address] [place] [phone] 01/16/2024 09:08:50 01/20/2024 15:37:55 [id number] Hawa Chanel MD [facility] ([place]) [address] [place] [address], [address] [place] [address] 01/16/2024 09:08:51 01/18/2024 10:40:35 Health Concerns Section Related Observation LastModified by Organization Detai ls LastModified Time None Recorded Concern Status LastModified by Organization Details LastModified Time None Recorded Advance Directives Directive None Recorded Payers Encounter Date Sequence Insurance Name Policy Number Policy Limon Covered Member ID Limon Member ID Guarantor Name 01/16/2024 1 [place] Adele Gould [id number] Arun Gould 01/16/2024 2 [employer] (MEDICARE SUPPLEMENT) PLAN Sánchez Gould [id number] Arun Gould 01/16/2024 1 [place] Adele Gould [id number] Arun Gould 01/16/2024 2 [employer] (MEDICARE SUPPLEMENT) PLAN Sánchez Gould [id number] Arun Gould Notes Date Note Type Note Provider Name and Address Organization Details Recorded Time 01/16/2024 text/html The patient pres ents for information regarding screening colonoscopy. Currently denies problems including diarrhea, constipation or other changes in the stools. Bowel movements on a regular basis without bleeding or discomfort. Hawa Chanel MD [address] [place] [address], [phone], [facility] 01/16/2024 10:33:02 01/16/2024 text/html [facility] PRE-ANEST HETIC EVALUATIONReported bypatient.Reason for Visit:PROPOSED PROCEDURE: COLONOSCOPY W/ POSS BX AND POLYPECTOMY; SURGEON: Darío; PREOP DIAGNOSIS: Encounter for screening for malignant neoplasm of colon- Review of Systems General:Exercise tolerance moderate; Denies SOB, SCHULZ, PND; Denies chest pain or chest tightness Cardiac:No Hx of CAD; Hypertension; Hyperlipidemia Pulmonary:Mild Asthma ,stable GI:GERD Pysch:Depression; Anxiety Prior Anesthetic Complication:no history of anesthesia complications Family Anesthetic Hx:no history of anesthesia complications Physical Exam: AirwayMP II TeethWNL NeckFull range of motion CardiovascularRegular rate and rhythm RespiratoryClear to auscultation bilaterally; No wheeze noted GastrointestinalNPO status >6 hrs solids, >2 hrs clear liquids Vital Signs:Vital signs reviewed. Please refer to nursing preop note for values Assessment:ASA PS: II Plan:MAC Discussion:I have discussed with the patient the anesthetic plan, alternatives, pertinent risks, and complications; including but not limited to PONV, dental injury, sore throat, RI, stroke, etc. All questions were answered. Patient verbalize(s) understanding and agree(s) to proceed. Robin Cueto MD [address] [place] [address], [phone], [facility] 01/16/2024 10:27:03 OBGyn Episode No OBEpisode recorded.
[2024-08-02 11:47] LABS: Basophils Percent Auto 0.5 % (0.2-1.2); Eosinophils Absolute Auto 0.1 K/mm3 (0-0.3); Eosinophils Percent Auto 1.6 % (0-4.4); Hematocrit 38.7 % (37.0-47.0); Hemoglobin 12.1 g/dL (12.0-15.0); Immature Granulocyte Absolute 0.04 K/mm3 (0.00-0.031); Immature Granulocyte Percent A 0.5 % (0-0.5); Lymphocytes Percent Auto 15.9 % (18.3-44.2); Mean Corpuscular HGB Conc 31.3 g/dl (32-36); Mean Corpuscular Volume 92.8 fl (80-100); Mean Platelet Volume 9.6 fl (7.4-10.4); Monocytes Absolute Auto 0.5 K/mm3 (0.1-0.6); Monocytes Percent Auto 6.1 % (2.6-8.5); Neutrophils Absolute Auto 6.2 K/mm3 (1.3-6.7); Neutrophils Percent Auto 75.4 % (45.5-73.1); Platelet Count Result 161 k/mm3 (150-375); Red Blood Count 4.17 M/mm3 (4.2-5.4); Red Cell Distribution Width 13.2 % (11.5-14.5); White Blood Count 8.2 K/mm3 (4.5-10.0)
[2024-08-02 11:59] LABS: Partial Thromboplastin Time 29.4 Seconds (22.3-36.8); Prothrombin Time 13.1 Seconds (11.1-14.7)
[2024-08-02 12:02] LABS: Alanine Aminotransferase 24 U/L (6-35); Alkaline Phosphatase 71 U/L (38-126); Anion Gap 5 mmol/L (4-12); Aspartate Amino Transferase 31 U/L (14-36); Bilirubin,Total 0.6 mg/dL (0.2-1.3); Blood Urea Nitrogen 17 mg/dL (7-17); Calcium 8.8 mg/dL (8.4-10.2); Carbon Dioxide 30 mmol/L (22-30); Chloride 99 mmol/L (98-107); Estimated CRCL calculation 59 ml/min; Estimated Glomerular Filt Rate > 60; Glucose 124 mg/dL (65-110); Potassium 4.2 mmol/L (3.4-5.0); Sodium 134 mmol/L (137-145)
--- NOTE | 2024-08-02 14:19 | ADMGEN ---
This patient, Adele Gould, was admitted to [facility] Surg Room 329-01. Patient/family oriented to hospital policies and general routines including ID bracelet, bed and alarms, visiting hours, pain management, procedures, bathroom and other care routines, personal items, smoking policy, room service/diet, and visiting hours. Information on how to activate the Rapid Response Team has been discussed. Patient/Family are encouraged to report perceived risks to care and to ask questions if they do not understand what they are told or what they should do.
--- NOTE | 2024-08-02 14:57 | PM.IMHP ---
H&P: [facility] History of Present Illness Date/Time: 08/02/24 14:57 Chief Complaint: Fall Narrative: 73 y/o F with PMH of osteoarthritis, hypertension, hyperlipidemia, hypothyroidism, and GERD presents here post-fall. The patient presents here from home via EMS on 08/02 for further evaluation post fall. She reports she was in her garage going up the steps when she tripped. This caused her to fall backwards into her car and then on to the ground. She landed on her right hip he and with a + head strike. She denies loss of consciousness or neck pain. Post fall she is reporting pain to her right hip and right shoulder. She was unable to ambulate afterwards. She arrived to the emergency department with shortening and external rotation of the right lower extremity. She is not on anticoagulation. She denies numbness or tingling to her lower extremities, dizziness, lightheadedness, nausea, or vomiting. The patient also notes that she has arthritis of her right hip and has been following with [facility]. She has been in the process of setting up a right total hip arthroplasty. Initial VS at presentation: 97.5? F, HR 55, R 12, 203/82 (now 127/65), and 95% on RA. ED workup showed: No leukocytosis, no anemia, normal coags, sodium 134, creatinine 0.8 and GFR >60, glucose 124. Head CT negative for significant abnormality. C-spine CT showed mild cervical spondylosis without acute osseous abnormality. CXR unremarkable. Shoulder XR (R) showed a blood old proximal right humeral fracture (healed in near anatomic alignment), no acute osseous abnormality, mild right glenohumeral and acromioclavicular osteoarthritis. Hip/pelvic XR showed a mildly displaced and angulated comminuted intertrochanteric fracture the proximal right femur. Review of Systems Review of Systems: All systems reviewed & are unremarkable except as noted in HPI and below [facility] Past Medical History Medical History (Updated 08/02/24 @ 15:26 by Stephie Olguin APRN) GERD without esophagitis Migraine Vertigo Essential tremor Knee osteoarthritis Chronic upper back pain BMI 29.0-29.9,adult Shoulder pain, bilateral Trochanteric bursitis of left hip History of fracture of arm (~2013) History of breast cancer s/p radiation Abnormal kidney function Anxiety disorder, unspecified Cardiac murmur, unspecified Essential (primary) hypertension Hypothyroidism Migraine without aura and with status migrainosus, not intractable Mixed hyperlipidemia Vitamin D deficiency, unspecified Surgical History Surgical History (Updated 08/02/24 @ 15:22 by Stephie Olguin APRN) Status post trigger finger release (~02/03/23) Right Thumb History of bladder surgery (~2016) TVT History of left knee replacement (~2012) History of arthroscopy of left knee (~2007) History of hysterectomy (~2004) Family History Family History Father Hypertension, Onset Age: 63 Mother Hypertension, Onset Age: 59 Family history of malignant neoplasm Sibling Hypertension Family history of coronary artery disease Grandparent Diabetes mellitus, Onset Age: 83 Social History Social History Smoking status: Never smoker Second hand tobacco smoke exposure: No Alcohol intake: never Substance use: never Substance use type: does not use Do You Feel Safe in your Home?: Yes Lack of Transportation: No Lack of Food: Never True Current Housing: I Have Housing Concerned About Future Housing: No Difficulty Paying Gas/Electric Bills: No Difficulty Paying for Meds: No Currently Unemployed: No Education: High School Diploma/GED Difficulty w/ Childcare or Family Care: No Living arrangements: with family Occupation/Education: retired 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 Gender identity (if verbalized by the patient): Female Spiritual care concerns: No Meds Home Medications and Allergies Home Medications ?Medication ?Instructions ?Recorded ?Confirmed ?Type propranolol 80 mg capsule,24 80 mg PO DAILY TREMORS 02/19/19 08/02/24 History hr,extended release primidone 50 mg tablet 50 mg PO BID TREMORS 06/01/19 08/02/24 History azelastine 137 mcg (0.1 %) nasal 2 spray intranasal Q12H 01/18/20 08/02/24 History spray multivitamin 1 tablet PO DAILY 01/18/20 08/02/24 History triamcinolone acetonide 0.1 % 1 applic topical 3XW 02/06/20 07/06/24 History topical ointment aspirin 81 mg tablet,delayed 81 mg PO DAILY 10/20/20 08/02/24 History release (Adult Aspirin Regimen) meclizine 25 mg tablet 25 mg PO TID PRN Dizziness 03/27/22 08/02/24 History ascorbic acid (vitamin C) 1,000 mg 2 g PO DAILY 04/12/22 08/02/24 History capsule carboxymethylcellulose sodium 1 drp EACH EYE TID PRN Dry Eyes 04/12/22 08/02/24 History (Refresh Contacts eye drops) nystatin 100,000 unit/gram topical 1 applic topical 3XW PRN INFECTION 04/12/22 07/06/24 History ointment cyclosporine 0.05 % eye drops in a 1 drp EACH EYE Q12H 05/24/23 08/02/24 History dropperette atorvastatin 40 mg tablet 40 mg PO HS #90 tabs 09/29/23 08/02/24 Rx cetirizine 10 mg tablet (Zyrtec) 10 mg PO DAILY 12/08/23 08/02/24 History losartan 100 mg tablet 100 mg PO DAILY #90 tabs 12/13/23 08/02/24 Rx Saccharomyces boulardii 250 mg 250 mg PO HS 05/15/24 08/02/24 History capsule (Digest Probiotic (S.boulardii)) white petrolatum-mineral oil 57.3 1 applic EACH EYE QHS 05/15/24 08/02/24 History %-42.5 % eye ointment (Refresh P.M.) amlodipine 5 mg tablet (Norvasc) 5 mg PO HS 06/11/24 08/02/24 History meloxicam 15 mg tablet 15 mg PO DAILY #30 tabs 07/02/24 08/02/24 Rx citalopram 10 mg tablet 10 mg PO DAILY #90 tabs 07/18/24 08/02/24 Rx calcium citrate 1,000 mg PO DAILY 08/02/24 08/02/24 History cholecalciferol (vitamin D3) 125 125 mcg PO DAILY 08/02/24 08/02/24 History mcg (5,000 unit) tablet (Vitamin D3) fluticasone propionate 50 1 spray intranasal DAILY 08/02/24 08/02/24 History mcg/actuation nasal spray,suspension omeprazole 40 mg capsule,delayed 40 mg PO .NOON 08/02/24 08/02/24 History release sumatriptan succinate 100 mg tablet 100 mg PO Q2H PRN migraine headache 08/02/24 08/02/24 History Allergies Allergy/AdvReac Type Severity Reaction Status Date / Time sulfamethoxazole (From Allergy Severe Swelling Verified 07/06/24 14:31 Bactrim) of Lip/Tongue/Throat trimethoprim (From Bactrim) Allergy Severe Swelling Verified 07/06/24 14:31 of Lip/Tongue/Throat levofloxacin Allergy Unknown Rash Verified 07/06/24 14:31 nitrofurantoin Allergy STOMACH Verified 07/06/24 14:31 UPSET amoxicillin AdvReac STOMACH Verified 07/06/24 14:31 UPSET clavulanic acid (From AdvReac Diarrhea Verified 07/06/24 14:31 Augmentin) Vital Signs Vital Signs - 24 hr 08/02/24 09:20 08/02/24 09:36 08/02/24 09:47 Temperature 97.5 F L Pulse Rate 55 L 53 L 54 L Respiratory Rate 12 10 L 17 Blood Pressure 203/82 H Pulse Oximetry 95 92 95 Oxygen Delivery Room Air 08/02/24 10:00 08/02/24 10:01 08/02/24 10:15 Temperature Pulse Rate 54 L 53 L 54 L Respiratory Rate 15 13 12 Blood Pressure 174/74 H Pulse Oximetry 97 94 93 Oxygen Delivery 08/02/24 11:35 08/02/24 11:45 08/02/24 12:31 Temperature Pulse Rate 88 54 L Respiratory Rate 14 13 Blood Pressure 151/66 H 159/68 H Pulse Oximetry 94 94 96 Oxygen Delivery 08/02/24 13:01 08/02/24 13:42 Temperature Pulse Rate 53 L 54 L Respiratory Rate 16 14 Blood Pressure 146/68 H 127/65 Pulse Oximetry 95 95 Oxygen Delivery Exam Narrative: Exam in in patient room. Daughter and at the bedside. Actively vomiting. Const: General: no acute distress and uncomfortable Other: , female, uncomfortable but nontoxic appearance HENMT: Face/Nose/Sinus: Normal nares present Mouth: Yes dry mucous membranes Eyes: General: appearance normal, both eyes and all related structures Sclera: sclerae normal Pupils: Equal, round and reactive pupils present EOM: EOMs intact bilaterally Resp: Effort & Inspection: normal respiratory effort Auscultation: clear to auscultation bilaterally Cardio: Rate: regular rate Rhythm: regular rhythm Other: S1-S2 present without murmur, rub, ectopy Urinary Catheter: Urinary Catheter: patent and draining Skin: General skin exam: normal color and no rashes or lesions noted Other: Small area of ecchymosis to right elbow Neuro: Speech: normal speech Motor exam (neuro): 5/5 motor strength present throughout Sensory Exam: normal sensation Other: A&O x4 Extrem: Other: Pain to rule upper right thigh/right hip. DP pulses 1+ bilaterally. Psych: Mental Status: mental status grossly normal Affect: Sad affect present Other: Good insight and judgment, pleasant H&P: Results Labs Labs: Short CBC 08/02/24 Range/Units 11:40 WBC 8.2 (4.5-10.0) K/mm3 Hgb 12.1 (12.0-15.0) g/dL Hct 38.7 (37.0-47.0) % Plt Count 161 (150-375) k/mm3 BMP 08/02/24 11:40 Sodium 134 L Potassium 4.2 Chloride 99 Carbon Dioxide 30 BUN 17 Creatinine 0.80 Glucose 124 H Calcium 8.8 Liver Function 08/02/24 Range/Units 11:40 Total Bilirubin 0.6 (0.2-1.3) mg/dL AST 31 (14-36) U/L ALT 24 (6-35) U/L Alkaline Phosphatase 71 (38-126) U/L Albumin 4.0 (3.5-5.1) g/dL Assessment and Plan Assessment and plan (1) Closed intertrochanteric fracture of right femur: Qualifiers: Encounter type: initial encounter Fracture alignment: displaced Qualified Code(s): S72.141A - Displaced intertrochanteric fracture of right femur, initial encounter for closed fracture Code(s): S72.141A - Displaced intertrochanteric fracture of right femur, initial encounter for closed fracture Status: Acute Assessment and Plan: Hip/pelvic XR: Mildly displaced and angulated comminuted intertrochanteric fracture the proximal right femur. Orthopedics consulted Analgesics p.r.n. Having significant pain despite morphine dosing. Will trial small dose of Valium IV this evening prior to bedtime. Opiates also causing nausea, patient reports this happens with most if not all opiates. Docusate b.i.d. for constipation prevention due to opiates/Zofran. Monitor daily labs NPO at midnight PT/OT postop, bed rest in interim Care coordination postop for acute rehab services (2) Fall from ground level: Code(s): W18.30XA - Fall on same level, unspecified, initial encounter Status: Acute Assessment and Plan: Trauma workup including CXR, C-spine CT, head CT, shoulder XR or negative for acute findings. Hip/pelvic XR showed a closed proximal/right femur fracture, see above. PT/OT Analgesics p.r.n. Fall precautions (3) Essential hypertension: Code(s): I10 - Essential (primary) hypertension Status: Acute Assessment and Plan: chronic, currently 127/65. continue home medications: amlodipine 5 mg, losartan 100 mg monitor. Plan Diet: Heart healthy, NPO at midnight GI Prophylaxis: Not currently indicated DVT Prophylaxis: SCDs IV fluids: None Lines/Tubes: Peripheral IV Code Status: Full code Quality VTE Prophylaxis VTE prophylaxis: mechanical ordered Hospitalist MIPS Advance Care Plan I have confirmed that the patient's Advanced Care Plan is present, code status is documented, or surrogate decision maker is listed in patient medical record.: Yes Medication Reconciliation I have utilized all available resources to obtain, update and review the patients current medications (includes all prescriptions, OTC, herbals, cannabis, and nutritional supplements).: Yes
--- NOTE | 2024-08-02 18:18 | PM.CNOR ---
Assessment and Plan Assessment and plan (1) Closed intertrochanteric fracture of right femur: Qualifiers: Encounter type: initial encounter Fracture alignment: displaced Qualified Code(s): S72.141A - Displaced intertrochanteric fracture of right femur, initial encounter for closed fracture Code(s): S72.141A - Displaced intertrochanteric fracture of right femur, initial encounter for closed fracture Status: Acute (2) Degenerative joint disease of right hip: Qualifiers: Osteoarthritis type: primary Qualified Code(s): M16.11 - Unilateral primary osteoarthritis, right hip Code(s): M16.11 - Unilateral primary osteoarthritis, right hip Status: Acute (3) Fall from ground level: Code(s): W18.30XA - Fall on same level, unspecified, initial encounter Status: Acute Plan Displaced unstable intertrochanteric fracture of the right hip. She has hip arthritis, and was in the process of being scheduled for right total hip arthroplasty prior to falling. I discussed the findings with the patient and her daughter. She will benefit from ORIF of the hip with an intramedullary nail. Hip replacement can be reconsidered at a later date after the fracture has healed. I explained that the fracture will increase the complexity of future hip replacement. I discussed the case with Dr. Fair, given that he was proposition player and the case is fairly complex. Since the patient was scheduled with me for hip replacement and is well known to me, I have agreed to take over the case. Proceed with right hip ORIF with intramedullary nail tomorrow. Risks, benefits, and alternatives discussed with the patient and her daughter. Anticipate 4-6 weeks inpatient rehab. History of Present Illness HPI Consult date: 08/02/24 Chief complaint: R Intertrochanteric Femur Fracture Narrative: Patient complains of acute hip pain. Fell from standing height. Admitted through the emergency room for definitive management. Previously had severe right hip pain and was scheduled for total hip arthroplasty. No numbness, tingling, or other associated symptoms. Review of Systems Review of Systems: CT scan was normal the head. All systems reviewed & are unremarkable except as noted in HPI and below PMFSH Past Medical History Medical History GERD without esophagitis Migraine Vertigo Essential tremor Knee osteoarthritis Chronic upper back pain BMI 29.0-29.9,adult Shoulder pain, bilateral Trochanteric bursitis of left hip History of fracture of arm (~2013) History of breast cancer s/p radiation Abnormal kidney function Anxiety disorder, unspecified Cardiac murmur, unspecified Essential (primary) hypertension Hypothyroidism Migraine without aura and with status migrainosus, not intractable Mixed hyperlipidemia Vitamin D deficiency, unspecified Surgical History Surgical History Status post trigger finger release (~02/03/23) Right Thumb History of bladder surgery (~2016) TVT History of left knee replacement (~2012) History of arthroscopy of left knee (~2007) History of hysterectomy (~2004) Family History Family History Father Hypertension, Onset Age: 63 Mother Hypertension, Onset Age: 59 Family history of malignant neoplasm Sibling Hypertension Family history of coronary artery disease Grandparent Diabetes mellitus, Onset Age: 83 Social History Social History Smoking status: Never smoker Second hand tobacco smoke exposure: No Alcohol intake: never Substance use: never Substance use type: does not use Do You Feel Safe in your Home?: Yes Lack of Transportation: No Lack of Food: Never True Current Housing: I Have Housing Concerned About Future Housing: No Difficulty Paying Gas/Electric Bills: No Difficulty Paying for Meds: No Currently Unemployed: No Education: High School Diploma/GED Difficulty w/ Childcare or Family Care: No Living arrangements: with family Occupation/Education: retired 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 Gender identity (if verbalized by the patient): Female Spiritual care concerns: No Meds Home Medications and Allergies Home Medications ?Medication ?Instructions ?Recorded ?Confirmed ?Type propranolol 80 mg capsule,24 80 mg PO DAILY TREMORS 02/19/19 08/02/24 History hr,extended release primidone 50 mg tablet 50 mg PO BID TREMORS 06/01/19 08/02/24 History azelastine 137 mcg (0.1 %) nasal 2 spray intranasal Q12H 01/18/20 08/02/24 History spray multivitamin 1 tablet PO DAILY 01/18/20 08/02/24 History triamcinolone acetonide 0.1 % 1 applic topical 3XW 02/06/20 07/06/24 History topical ointment aspirin 81 mg tablet,delayed 81 mg PO DAILY 10/20/20 08/02/24 History release (Adult Aspirin Regimen) meclizine 25 mg tablet 25 mg PO TID PRN Dizziness 03/27/22 08/02/24 History ascorbic acid (vitamin C) 1,000 mg 2 g PO DAILY 04/12/22 08/02/24 History capsule carboxymethylcellulose sodium 1 drp EACH EYE TID PRN Dry Eyes 04/12/22 08/02/24 History (Refresh Contacts eye drops) nystatin 100,000 unit/gram topical 1 applic topical 3XW PRN INFECTION 04/12/22 07/06/24 History ointment cyclosporine 0.05 % eye drops in a 1 drp EACH EYE Q12H 05/24/23 08/02/24 History dropperette atorvastatin 40 mg tablet 40 mg PO HS #90 tabs 09/29/23 08/02/24 Rx cetirizine 10 mg tablet (Zyrtec) 10 mg PO DAILY 12/08/23 08/02/24 History losartan 100 mg tablet 100 mg PO DAILY #90 tabs 12/13/23 08/02/24 Rx Saccharomyces boulardii 250 mg 250 mg PO HS 05/15/24 08/02/24 History capsule (Digest Probiotic (S.boulardii)) white petrolatum-mineral oil 57.3 1 applic EACH EYE QHS 05/15/24 08/02/24 History %-42.5 % eye ointment (Refresh P.M.) amlodipine 5 mg tablet (Norvasc) 5 mg PO HS 06/11/24 08/02/24 History meloxicam 15 mg tablet 15 mg PO DAILY #30 tabs 07/02/24 08/02/24 Rx citalopram 10 mg tablet 10 mg PO DAILY #90 tabs 07/18/24 08/02/24 Rx calcium citrate 1,000 mg PO DAILY 08/02/24 08/02/24 History cholecalciferol (vitamin D3) 125 125 mcg PO DAILY 08/02/24 08/02/24 History mcg (5,000 unit) tablet (Vitamin D3) fluticasone propionate 50 1 spray intranasal DAILY 08/02/24 08/02/24 History mcg/actuation nasal spray,suspension omeprazole 40 mg capsule,delayed 40 mg PO .NOON 08/02/24 08/02/24 History release sumatriptan succinate 100 mg tablet 100 mg PO Q2H PRN migraine headache 08/02/24 08/02/24 History Allergies Allergy/AdvReac Type Severity Reaction Status Date / Time sulfamethoxazole (From Allergy Severe Swelling Verified 07/06/24 14:31 Bactrim) of Lip/Tongue/Throat trimethoprim (From Bactrim) Allergy Severe Swelling Verified 07/06/24 14:31 of Lip/Tongue/Throat levofloxacin Allergy Unknown Rash Verified 07/06/24 14:31 nitrofurantoin Allergy STOMACH Verified 07/06/24 14:31 UPSET amoxicillin AdvReac STOMACH Verified 07/06/24 14:31 UPSET clavulanic acid (From AdvReac Diarrhea Verified 07/06/24 14:31 Augmentin) Vital Signs Vital Signs - 24 hr 08/02/24 09:20 08/02/24 09:36 08/02/24 09:47 Temperature 36.4 C L Pulse Rate 55 L 53 L 54 L Respiratory Rate 12 10 L 17 Blood Pressure 203/82 H Pulse Oximetry 95 92 95 Oxygen Delivery Room Air 08/02/24 10:00 08/02/24 10:01 08/02/24 10:15 Temperature Pulse Rate 54 L 53 L 54 L Respiratory Rate 15 13 12 Blood Pressure 174/74 H Pulse Oximetry 97 94 93 Oxygen Delivery 08/02/24 11:35 08/02/24 11:45 08/02/24 12:31 Temperature Pulse Rate 88 54 L Respiratory Rate 14 13 Blood Pressure 151/66 H 159/68 H Pulse Oximetry 94 94 96 Oxygen Delivery 08/02/24 13:01 08/02/24 13:42 Temperature Pulse Rate 53 L 54 L Respiratory Rate 16 14 Blood Pressure 146/68 H 127/65 Pulse Oximetry 95 95 Oxygen Delivery Exam Narrative: Lower extremity shortened and externally rotated. Const: General: no acute distress Eyes: General: appearance normal, both eyes and all related structures Resp: Effort & Inspection: normal respiratory effort GI: GI Palp: Yes Soft to palpation and No Guarding due to palpation present (GI) Urinary Catheter: Urinary Catheter: patent and draining and urine clear Skin: General skin exam: no rashes or lesions noted Neuro: Speech: normal speech Other: Wiggles toes well. Capillary refill brisk. Distal light touch sensation intact. Dorsalis pedis pulse palpable. Extrem: Other: No edema. Psych: Mental Status: mental status grossly normal Results Labs 08/02/24 11:40 08/02/24 11:40 Labs: Abnormal lab results 08/02/24 Range/Units 11:40 RBC 4.17 L (4.2-5.4) M/mm3 MCHC 31.3 L (32-36) g/dl Neut % (Auto) 75.4 H (45.5-73.1) % Lymph % (Auto) 15.9 L (18.3-44.2) % Abs Immat Gran (auto) 0.04 H (0.00-0.031) K/mm3 Sodium 134 L (137-145) mmol/L Glucose 124 H (65-110) mg/dL H & H 08/02/24 Range/Units 11:40 Hgb 12.1 (12.0-15.0) g/dL Hct 38.7 (37.0-47.0) % Coagulation 08/02/24 Range/Units 11:40 INR 1.0 All other labs normal. Quality VTE Prophylaxis VTE prophylaxis: mechanical ordered
[2024-08-02] MEDS: diazePAM INJ (*CRX) 10 MG/2 ML SYRINGE 2.5 MG IV PUSH (20:34)
[2024-08-02] MEDS: cycloSPORINE 0.4 ML OPHTH SOLUTION 1 DROP EACH EYE (20:35)
[2024-08-02] MEDS: MINERAL OIL/WHITE PETROLATUM OINTMENT 1 APPLIC EACH EYE (20:35)
[2024-08-03] VITALS (11 sets, daily range): BP systolic 132–186; BP diastolic 52–93; PULSE 58–86; RESP 12–19; TEMP 36.6–37.6; O2SAT 90–100
[2024-08-03] MEDS: MORPHINE SULFATE (*CRX) 4 MG/ML INJ IV PUSH ×3 (05:01→13:02)
[2024-08-03] MEDS: ONDANSETRON INJ 4 MG/2 ML VIAL IV PUSH ×2 (05:01→17:36)
[2024-08-03 06:14] LABS: Basophils Percent Auto 0.4 % (0.2-1.2); Eosinophils Percent Auto 0.1 % (0-4.4); Hematocrit 36.2 % (37.0-47.0); Hemoglobin 11.4 g/dL (12.0-15.0); Immature Granulocyte Absolute 0.02 K/mm3 (0.00-0.031); Immature Granulocyte Percent A 0.3 % (0-0.5); Lymphocytes Percent Auto 16.5 % (18.3-44.2); Mean Corpuscular HGB Conc 31.5 g/dl (32-36); Mean Corpuscular Hemoglobin 29.2 pg (26-34); Mean Corpuscular Volume 92.6 fl (80-100); Mean Platelet Volume 9.6 fl (7.4-10.4); Monocytes Absolute Auto 0.7 K/mm3 (0.1-0.6); Monocytes Percent Auto 9.3 % (2.6-8.5); Neutrophils Absolute Auto 5.8 K/mm3 (1.3-6.7); Neutrophils Percent Auto 73.4 % (45.5-73.1); Platelet Count Result 174 k/mm3 (150-375); Red Blood Count 3.91 M/mm3 (4.2-5.4); Red Cell Distribution Width 13.6 % (11.5-14.5); White Blood Count 7.9 K/mm3 (4.5-10.0)
[2024-08-03 06:30] LABS: Anion Gap 8 mmol/L (4-12); Blood Urea Nitrogen 25 mg/dL (7-17); Carbon Dioxide 29 mmol/L (22-30); Chloride 97 mmol/L (98-107); Estimated CRCL calculation 37 ml/min; Estimated Glomerular Filt Rate 42; Glucose 107 mg/dL (65-110); Potassium 4.5 mmol/L (3.4-5.0); Sodium 134 mmol/L (137-145)
[2024-08-03] MEDS: AZELASTINE HCL NASAL 0.1% 137 MCG/SPR 30 ML BTL 2 SPRAY NASAL ×2 (09:38→20:22)
[2024-08-03] MEDS: FLUTICASONE PROPIONATE 0.05% NA SPR 16 GM BTL (*BKC) 1 SPRAY NASAL (09:39)
[2024-08-03] MEDS: cycloSPORINE 0.4 ML OPHTH SOLUTION 1 DROP EACH EYE ×2 (09:39→20:22)
[2024-08-03] MEDS: ARTIFICIAL TEARS OPHTH SOLN 15 ML BOTTLE 1 DROP EACH EYE (09:45)
[2024-08-03] MEDS: LACTATED RINGERS 1,000 ML 30 ML IV CONT ×2 (13:35→17:05)
[2024-08-03] MEDS: TRANEXAMIC ACID 1,000MG/ISO100 1,000 MG/100 ML BAG 200 MG IVPB (13:45)
--- NOTE | 2024-08-03 14:25 | WPDHPUPDATE1 ---
History and Physical Update Update Date/Time: 08/03/24 14:25 History and Physical has been reviewed, including an updated exam of the patient. There are NO changes in the patient's condition. Risks, benefits, and alternatives have been discussed and questions answered. Patient agrees to proceed with procedure.
--- NOTE | 2024-08-03 14:51 | WPDANESEPPF ---
Anes - Initial Pre Proc Eval Procedure: Operation Date: 08/03/24 15:00 Proposed Procedures p Intertrochanteric Nail Right Hip - Ramo Cavanaugh MD Date/Time: 08/03/24 14:51 Surgeon: Suly Monsivais APRN Pre Op Diagnosis: R Intertrochanteric Femur Fracture Patient Data Age: 73 Gender: F Height: 1.65 m Weight: 81 kg Last Vital Signs Temp 37.2 C 08/03/24 06:00 Pulse 71 08/03/24 06:00 Resp 16 08/03/24 06:00 BP 141/52 H 08/03/24 06:00 Pulse Ox 90 08/03/24 06:00 O2 Del Method Room Air 08/02/24 20:20 Allergies Allergy/AdvReac Type Severity Reaction Status Date / Time sulfamethoxazole (From Allergy Severe Swelling Verified 07/06/24 14:31 Bactrim) of Lip/Tongue/Throat trimethoprim (From Bactrim) Allergy Severe Swelling Verified 07/06/24 14:31 of Lip/Tongue/Throat levofloxacin Allergy Unknown Rash Verified 07/06/24 14:31 nitrofurantoin Allergy STOMACH Verified 07/06/24 14:31 UPSET amoxicillin AdvReac STOMACH Verified 07/06/24 14:31 UPSET clavulanic acid (From AdvReac Diarrhea Verified 07/06/24 14:31 Augmentin) Home Medications ?Medication ?Instructions ?Recorded ?Confirmed ?Type propranolol 80 mg capsule,24 80 mg PO DAILY TREMORS 02/19/19 08/02/24 History hr,extended release primidone 50 mg tablet 50 mg PO BID TREMORS 06/01/19 08/02/24 History azelastine 137 mcg (0.1 %) nasal 2 spray intranasal Q12H 01/18/20 08/02/24 History spray multivitamin 1 tablet PO DAILY 01/18/20 08/02/24 History triamcinolone acetonide 0.1 % 1 applic topical 3XW 02/06/20 08/03/24 History topical ointment aspirin 81 mg tablet,delayed 81 mg PO DAILY 10/20/20 08/02/24 History release (Adult Aspirin Regimen) meclizine 25 mg tablet 25 mg PO TID PRN Dizziness 03/27/22 08/02/24 History ascorbic acid (vitamin C) 1,000 mg 2 g PO DAILY 04/12/22 08/02/24 History capsule carboxymethylcellulose sodium 1 drp EACH EYE TID PRN Dry Eyes 04/12/22 08/02/24 History (Refresh Contacts eye drops) nystatin 100,000 unit/gram topical 1 applic topical 3XW PRN INFECTION 04/12/22 08/03/24 History ointment cyclosporine 0.05 % eye drops in a 1 drp EACH EYE Q12H 05/24/23 08/02/24 History dropperette atorvastatin 40 mg tablet 40 mg PO HS #90 tabs 09/29/23 08/02/24 Rx cetirizine 10 mg tablet (Zyrtec) 10 mg PO DAILY 12/08/23 08/02/24 History losartan 100 mg tablet 100 mg PO DAILY #90 tabs 12/13/23 08/02/24 Rx Saccharomyces boulardii 250 mg 250 mg PO HS 05/15/24 08/02/24 History capsule (Digest Probiotic (S.boulardii)) white petrolatum-mineral oil 57.3 1 applic EACH EYE QHS 05/15/24 08/02/24 History %-42.5 % eye ointment (Refresh P.M.) amlodipine 5 mg tablet (Norvasc) 5 mg PO HS 06/11/24 08/02/24 History meloxicam 15 mg tablet 15 mg PO DAILY #30 tabs 07/02/24 08/02/24 Rx citalopram 10 mg tablet 10 mg PO DAILY #90 tabs 07/18/24 08/02/24 Rx calcium citrate 1,000 mg PO DAILY 08/02/24 08/02/24 History cholecalciferol (vitamin D3) 125 125 mcg PO DAILY 08/02/24 08/02/24 History mcg (5,000 unit) tablet (Vitamin D3) fluticasone propionate 50 1 spray intranasal DAILY 08/02/24 08/02/24 History mcg/actuation nasal spray,suspension omeprazole 40 mg capsule,delayed 40 mg PO .NOON 08/02/24 08/02/24 History release sumatriptan succinate 100 mg tablet 100 mg PO Q2H PRN migraine headache 08/02/24 08/02/24 History Laboratory Tests 08/02/24 08/03/24 16:32 05:49 WBC 7.9 K/mm3 (4.5-10.0) RBC 3.91 L M/mm3 (4.2-5.4) Hgb 11.4 L g/dL (12.0-15.0) Hct 36.2 L % (37.0-47.0) MCV 92.6 fl (80-100) MCH 29.2 pg (26-34) MCHC 31.5 L g/dl (32-36) RDW 13.6 % (11.5-14.5) Plt Count 174 k/mm3 (150-375) MPV 9.6 fl (7.4-10.4) Immature Gran % (Auto) 0.3 % (0-0.5) Neut % (Auto) 73.4 H % (45.5-73.1) Lymph % (Auto) 16.5 L % (18.3-44.2) [place] % (Auto) 9.3 H % (2.6-8.5) Eos % (Auto) 0.1 % (0-4.4) Baso % (Auto) 0.4 % (0.2-1.2) Lymph # (Auto) 1.30 K/mm3 (0.9-3.2) [place] # (Auto) 0.7 H K/mm3 (0.1-0.6) Eos # (Auto) 0.0 K/mm3 (0-0.3) Baso # (Auto) 0.0 K/mm3 (0.0-0.1) Abs Immat Gran (auto) 0.02 K/mm3 (0.00-0.031) Absolute Neuts (auto) 5.8 K/mm3 (1.3-6.7) Absolute Nucleated RBC 0.000 K/mm3 (0.0-0.012) Nucleated RBC % 0.0 % (0.0-0.2) Sodium 134 L mmol/L (137-145) Potassium 4.5 mmol/L (3.4-5.0) Chloride 97 L mmol/L (98-107) Carbon Dioxide 29 mmol/L (22-30) Anion Gap 8 mmol/L (4-12) BUN 25 H mg/dL (7-17) Creatinine 1.25 H mg/dL (0.7-1.0) Estim Creat Clear Calc 37 ml/min Estimated GFR 42 L (59 - ) Glucose 107 mg/dL (65-110) Calcium 9.0 mg/dL (8.4-10.2) Blood Type O Positive Antibody Screen Negative Patient hx anesthesia problems: none Family hx anesthesia problems: none Results Review: All pre-operative results and documents have been reviewed as part of the pre-operative evaluation. [facility] Past Medical History Medical History GERD without esophagitis Migraine Vertigo Essential tremor Knee osteoarthritis Chronic upper back pain BMI 29.0-29.9,adult Shoulder pain, bilateral Trochanteric bursitis of left hip History of fracture of arm (~2013) History of breast cancer s/p radiation Abnormal kidney function Anxiety disorder, unspecified Cardiac murmur, unspecified Essential (primary) hypertension Hypothyroidism Migraine without aura and with status migrainosus, not intractable Mixed hyperlipidemia Vitamin D deficiency, unspecified Surgical History Surgical History Status post trigger finger release (~02/03/23) Right Thumb History of bladder surgery (~2016) TVT History of left knee replacement (~2012) History of arthroscopy of left knee (~2007) History of hysterectomy (~2004) Family History Family History Father Hypertension, Onset Age: 63 Mother Hypertension, Onset Age: 59 Family history of malignant neoplasm Sibling Hypertension Family history of coronary artery disease Grandparent Diabetes mellitus, Onset Age: 83 Social History Social History Smoking status: Never smoker Second hand tobacco smoke exposure: No Alcohol intake: never Substance use: never Substance use type: does not use Do You Feel Safe in your Home?: Yes Lack of Transportation: No Lack of Food: Never True Current Housing: I Have Housing Concerned About Future Housing: No Difficulty Paying Gas/Electric Bills: No Difficulty Paying for Meds: No Currently Unemployed: No Education: High School Diploma/GED Difficulty w/ Childcare or Family Care: No Living arrangements: with family Occupation/Education: retired 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 Informed Consent: The patient's anesthetic plan and its attendant risks and benefits were discussed with the patient/family/POA. Questions were solicited and answers provided to the satisfaction of the patient/family/POA.
[2024-08-03] MEDS: ceFAZolin 2 GM/D5W 50 ML 2 GM/50 ML BAG IVPB ×2 (14:55→22:12)
--- NOTE | 2024-08-03 16:05 | PM.IMPN ---
Progress Note: A&P Assessment and Plan (1) Closed intertrochanteric fracture of right femur: Qualifiers: Encounter type: initial encounter Fracture alignment: displaced Qualified Code(s): S72.141A - Displaced intertrochanteric fracture of right femur, initial encounter for closed fracture Code(s): S72.141A - Displaced intertrochanteric fracture of right femur, initial encounter for closed fracture Status: Acute Assessment and Plan: Hip/pelvic XR: Mildly displaced and angulated comminuted intertrochanteric fracture the proximal right femur. Orthopedics consulted, now s/p ORIF right hip today Analgesics p.r.n. Having significant pain despite morphine dosing. received Valium IV last night before bedtime. Opiates also causing nausea, patient reports this happens with most if not all opiates. Docusate b.i.d. for constipation prevention due to opiates/Zofran. Monitor daily labs Diet as tolerated PT/OT postop, bed rest in interim Care coordination postop for acute rehab services (2) Fall from ground level: Code(s): W18.30XA - Fall on same level, unspecified, initial encounter Status: Acute Assessment and Plan: Trauma workup including CXR, C-spine CT, head CT, shoulder XR or negative for acute findings. Hip/pelvic XR showed a closed proximal/right femur fracture, see above. PT/OT Analgesics p.r.n. Fall precautions (3) Essential hypertension: Code(s): I10 - Essential (primary) hypertension Status: Acute Assessment and Plan: chronic, currently 127/65. continue home medications: amlodipine 5 mg, losartan 100 mg monitor. (4) Nausea & vomiting: Code(s): R11.2 - Nausea with vomiting, unspecified Status: Acute Assessment and Plan: QTc 411. Zofran hasn't been helping at 4mg dose. Schedule zofran 8mg ODT q12 & reassess compazine q6 prn, phenergan prn, ativan 0.5mg 3rd line Additional options include haldol and tigan Plan Diet: Heart healthy, NPO at midnight GI Prophylaxis: Not currently indicated DVT Prophylaxis: SCDs IV fluids: None Lines/Tubes: Peripheral IV Code Status: Full code Time Spent With Patient Time: 57 minutes Subjective Date/time seen: 08/03/24 18:05 Interval history: s/p ORIF right hip today. Frequent nausea today and still nauseated post procedure. Review of Systems Review of Systems: All systems reviewed & are unremarkable except as noted in HPI and below Exam Narrative: General - Awake and alert. No acute distress Eyes - PERRLA, EOM intact ENT - No thrush, No erythema Neck - No noticeable or palpable swelling Lymph Nodes - No lymphadenopathy Cardiovascular - RRR no m/r/g, no JVD Lungs: Clear to auscultation, No wheezing, use of accessory muscles, no crackles or wheezes. Skin - Skin warm and dry, no wounds or rashes Abdomen - Normal bowel sounds, abdomen soft and nontender Extremities - No edema, cyanosis or clubbing Musculoskeletal - 5/5 strength, normal range of motion, no swollen or erythematous joints. Neurological ? Alert and oriented x 3, CN 2-12 grossly intact. Psych: Normal mood and affect Objective Data Vital Signs Vital Signs: Vital Signs - 24 hr 08/02/24 20:20 08/02/24 22:00 08/03/24 06:00 Temperature 98.3 F 98.9 F Pulse Rate 61 71 Respiratory Rate 16 16 Blood Pressure 134/57 L 141/52 H Pulse Oximetry 92 90 Oxygen Delivery Room Air Intake/Output Intake/Output: Intake & Output 07/31/24 08/01/24 08/02/24 08/03/24 23:59 23:59 23:59 23:59 Intake Total 550 250 Output Total 350 100 Balance 200 150 Meds/Results Medications: Active Medications Generic Name Dose Route Start Last Admin Trade Name Freq PRN Reason Stop Dose Admin Acetaminophen 650 mg 08/02/24 12:56 Acetaminophen 325 Mg Tablet PO Q4H PRN Mild Pain (1-3) or Fever Hydrocodone Bitart/Acetaminophen 1 tab 08/02/24 15:27 Hydrocodone/Acetaminophen (*Crx) 5-325 Mg Tablet PO Q6H PRN Pain Rated 4-6 Amlodipine Besylate 5 mg 08/02/24 21:00 08/02/24 20:34 Amlodipine Besylate 5 Mg Tablet PO Not Given HS DERICK Artificial Tears 1 drop 08/02/24 18:26 08/03/24 09:45 Artificial Tears Ophth Soln 15 Ml Bottle EACH EYE 1 drop TID PRN Administration Dry Eyes Ascorbic Acid 2,000 mg 08/03/24 09:00 08/03/24 09:39 Ascorbic Acid 500 Mg Tablet PO Not Given DAILY DERICK Aspirin 81 mg 08/03/24 09:00 08/03/24 09:39 Aspirin 81 Mg Enteric Tablet PO Not Given DAILY DERICK Atorvastatin Calcium 40 mg 08/02/24 21:00 08/02/24 20:35 Atorvastatin 40 Mg Tablet PO Not Given HS DERICK Azelastine HCl 2 spray 08/02/24 21:00 08/03/24 09:38 Azelastine Hcl Nasal 0.1% 137 Mcg/Spr 30 Ml Btl NASAL 2 spray Q12HR DERICK Administration Citalopram Hydrobromide 10 mg 08/03/24 09:00 08/03/24 09:41 Citalopram Hydrobromide 10 Mg Tablet PO Not Given DAILY DERICK Cyclosporine 1 drop 08/02/24 21:00 08/03/24 09:39 Cyclosporine 0.4 Ml Ophth Solution EACH EYE 1 drop Q12HR DERICK Administration Dextrose 12.5 gm 08/02/24 12:56 Dextrose 50% 25 Gm/50 Ml Syringe IV PUSH PRN PRN Hypoglycemia Protocol Docusate Sodium 100 mg 08/02/24 21:00 08/03/24 09:39 Docusate Sodium 100 Mg Capsule PO Not Given Q12HR DERICK Fentanyl Citrate 25 mcg 08/03/24 15:24 Fentanyl Citrate Inj (*Crx) 100 Mcg/2 Ml Vial IV PUSH Q2M PRN Pain Fluticasone Propionate 1 spray 08/03/24 09:00 08/03/24 09:39 Fluticasone Propionate 0.05% Na Spr 16 Gm Btl (*Bkc) NASAL 1 spray DAILY DERICK Administration Glucagon 1 mg 08/02/24 12:56 Glucagon For Inj 1 Mg Vial IM PRN PRN Hypoglycemia Protocol Glucose 15 gm 08/02/24 12:56 Glucose Oral Gel 15 Gm Of Glucse In 37.5 Gm Tube PO PRN PRN Hypoglycemia Protocol Dextrose 1,000 mls @ 100 mls/hr 08/02/24 12:56 Dextrose 5% 1,000 Ml IVPB PRN PRN Hypoglycemia Protocol Lactated Ringer's 1,000 mls @ 30 mls/hr 08/03/24 15:05 08/03/24 13:35 Lr - Lactated Ringers Iv IV CONT 30 mls/hr .Q24H DERICK Administration Lactated Ringer's 1,000 mls @ 30 mls/hr 08/03/24 15:25 Lr - Lactated Ringers Iv IV CONT .Q24H DERICK Lactated Ringer's 1,000 mls @ 30 mls/hr 08/03/24 15:25 Lr - Lactated Ringers Iv IV CONT .Q24H DERICK Loratadine 10 mg 08/03/24 09:00 08/03/24 09:39 Loratadine 10 Mg Tablet PO Not Given QAM DERICK Losartan Potassium 100 mg 08/03/24 09:00 08/03/24 09:39 Losartan Potassium 100 Mg Tablet PO Not Given DAILY DERICK Meclizine HCl 25 mg 08/02/24 18:09 Meclizine Hcl 25 Mg Tablet PO TID PRN Dizziness Meloxicam 15 mg 08/03/24 09:00 08/03/24 09:40 Meloxicam 7.5 Mg Tablet PO Not Given DAILY [facility] Miscellaneous Information 0 each 08/02/24 00:01 Propranolol Er 80mg Nonform Can Pt Bring From Home?? XX 09/01/24 00:00 CLARIFY [facility] Morphine Sulfate 4 mg 08/02/24 12:56 08/03/24 13:02 Morphine Sulfate (*Crx) 4 Mg/Ml Inj IV PUSH 4 mg Q2H PRN Administration Pain Rated 7-10 Multi-Ingred Cream/Lotion/Oil/Oint 1 applic 08/02/24 21:00 08/02/24 20:35 Mineral Oil/White Petrolatum Ointment EACH EYE 1 applic QHS DERICK Administration Multivitamins Therapeutic 1 tablet 08/03/24 09:00 08/03/24 09:41 Multivitamins Therapeutic Tab (*Bkc) PO Not Given DAILY [facility] Naloxone HCl 0.1 mg 08/02/24 18:12 Naloxone Hcl 0.4 Mg/Ml Vial IV PUSH Q5MIN PRN Sedation Non-Formulary Medication 80 mg 08/03/24 09:00 Propranolol PO 09/02/24 08:59 DAILY [facility] Nonformulary 0 each 08/02/24 20:37 Nutritional XX 08/03/24 20:36 Supplement(Calcium PRN PRN Citrate 200 Mg (950 PROTOCOL Mg) Tabl Ondansetron HCl 4 mg 08/02/24 12:56 08/03/24 05:01 Ondansetron Inj 4 Mg/2 Ml Vial IV PUSH 4 mg Q4H PRN Administration Nausea Ondansetron HCl 4 mg 08/03/24 15:24 Ondansetron Inj 4 Mg/2 Ml Vial IV PUSH ONCE PRN Nausea Pantoprazole Sodium 40 mg 08/02/24 21:00 08/03/24 09:41 Pantoprazole 40 Mg Tablet PO Not Given Q12HR DERICK Primidone 50 mg 08/03/24 09:00 08/03/24 09:41 Primidone 50 Mg Tablet PO Not Given BID DERICK Saccharomyces Boulardii 250 mg 08/02/24 21:00 08/02/24 20:36 Saccharomyces Boulardii 250 Mg Capsule PO Not Given HS DERICK Sumatriptan Succinate 100 mg 08/02/24 18:09 Sumatriptan Succinate 25 Mg Tablet PO Q2H PRN migraine headache Vitamin D 5,000 units 08/03/24 09:00 08/03/24 09:39 Cholecalciferol 5,000 Units Tablet BY MOUTH Not Given DAILY [facility] Radiology Results: ITS Impressions Head CT 08/02/24 10:57 Impression: No significant abnormality seen. Cervical Spine CT 08/02/24 10:58 IMPRESSION: 1. Mild cervical spondylosis. No acute osseous abnormality. Chest X-Ray 08/02/24 11:08 IMPRESSION: 1. No acute cardiopulmonary disease. Shoulder X-Ray 08/02/24 11:09 IMPRESSION: 1. Old proximal right humeral fracture which is healed in near-anatomic alignment. No acute osseous abnormality. 2. Mild right glenohumeral and acromioclavicular osteoarthritis. Hip/Pelvis X-Ray 08/02/24 11:12 IMPRESSION: 1. Mildly displaced and angulated comminuted intertrochanteric fracture the proximal right femur. Labs Labs: Laboratory Results - last 24 hr 08/02/24 08/03/24 16:32 05:49 WBC 7.9 RBC 3.91 L Hgb 11.4 L Hct 36.2 L MCV 92.6 MCH 29.2 MCHC 31.5 L RDW 13.6 Plt Count 174 MPV 9.6 Immature Gran % (Auto) 0.3 Neut % (Auto) 73.4 H Lymph % (Auto) 16.5 L [place] % (Auto) 9.3 H Eos % (Auto) 0.1 Baso % (Auto) 0.4 Lymph # (Auto) 1.30 [place] # (Auto) 0.7 H Eos # (Auto) 0.0 Baso # (Auto) 0.0 Abs Immat Gran (auto) 0.02 Absolute Neuts (auto) 5.8 Absolute Nucleated RBC 0.000 Nucleated RBC % 0.0 Sodium 134 L Potassium 4.5 Chloride 97 L Carbon Dioxide 29 Anion Gap 8 BUN 25 H Creatinine 1.25 H Estim Creat Clear Calc 37 Estimated GFR 42 L Glucose 107 Calcium 9.0 Blood Type O Positive Antibody Screen Negative Quality VTE Prophylaxis VTE prophylaxis: mechanical ordered Hospitalist MIPS Advance Care Plan I have confirmed that the patient's Advanced Care Plan is present, code status is documented, or surrogate decision maker is listed in patient medical record.: Yes Medication Reconciliation I have utilized all available resources to obtain, update and review the patients current medications (includes all prescriptions, OTC, herbals, cannabis, and nutritional supplements).: Yes
--- NOTE | 2024-08-03 17:03 | W.PM.PROC2 ---
Procedure Note - Detailed Date of Procedure 08/03/24 Pre-op Diagnosis Right Hip Intertrochanteric Femur Fracture Post-op Diagnosis Same Procedure Performed ORIF right hip intertrochanteric fracture with long intramedullary nail. Surgeon Ramo Cavanaugh MD Anesthesia General Findings Displaced, unstable fracture with large posterior fragment in continuity with the lesser tuberosity. Open reducion required with a bone hook on the medial neck and an elevator under the distal fragment. Near anatomic reduction obtained. Good bone quality. Long nail with shaft locking screw, placed through the jig. Description of Procedure The patient was given a general anesthetic, then carefully placed in fracture table. Sterile prep and drape performed in the usual fashion. Sterile curtain was used. Gentle traction was utilized to reduce the fracture. Fluoroscopy was used to confirm anatomic reduction and a proper placement of the implants. A longitudinal incision was created at the tip of the trochanter. The deep fascia was incised. The cannulated awl was used to open the proximal femur. The guidewire was placed across the fracture. The reamer was used to open the canal. The flexible reamers were then used to open the distal canal to 12 mm. The fracture remained displaced despite traction and manipulation. A second incision was created distal to the greater tuberosity. Open reduction was performed with a bone hook on the medial neck and an elevator under the distal fragment. The long nail was placed across the fracture site. The distal incision was extended for placement of the cannulated guide sleeve. The guide pin was placed in the center of the femoral head. Appropriate measurement was taken. The pin was over reamed. The screw was placed with excellent purchase, and compression applied. The distal locking screw was placed through the guide. The wound was irrigated. The deep fascia was closed with #1 Vicryl suture followed by 2-0 Vicryl suture, Stratafix suture and steri-strips. Sterile dressing was applied. The patient was transferred to the recovery room in stable condition. There were no complications. Implants Arthrex ES troch nail, 10 x 360 mm. 125?. Telescoping lag screw 10.5 x 85mm. 5 x 36 mm captured cortical screw. Estimated Blood Loss 400 Drains No Packing No Pathology None sent Complications No immediate complications Condition Stable Disposition PACU [facility] Billing Surgery - Charge Forward: Surgery Billing
--- NOTE | 2024-08-03 17:30 | SUR.PHASEI ---
1725: Dr. Cote notified by this RN of consistent BP readings of 180s/ 70s. Per he is okay with where pressure is now, but to let him know if it gets any higher.
[2024-08-03] MEDS: diphenhydrAMINE HCl INJ 50 MG/ML VIAL 12.5 MG IV PUSH (18:07)
[2024-08-03] MEDS: SODIUM CHLORIDE 0.9% IV 1,000 ML 125 ML IV CONT (20:16)
[2024-08-03] MEDS: MINERAL OIL/WHITE PETROLATUM OINTMENT 1 APPLIC EACH EYE (20:22)
[2024-08-03] MEDS: ONDANSETRON HCL ODT 4 MG TABLET 8 MG PO (23:12)
[2024-08-04] VITALS (9 sets, daily range): BP systolic 120–143; BP diastolic 53–82; PULSE 58–100; RESP 16–20; TEMP 36.4–37.2; O2SAT 82–100
[2024-08-04] MEDS: HYDROmorphone HCL INJ (*CRX) 2 MG/ML VIAL 1 MG IV PUSH (03:16)
[2024-08-04] MEDS: SODIUM CHLORIDE 0.9% IV 1,000 ML 125 ML IV CONT (04:27)
[2024-08-04] MEDS: ceFAZolin 2 GM/D5W 50 ML 2 GM/50 ML BAG IVPB ×2 (05:37→14:40)
[2024-08-04 06:26] LABS: Anion Gap 8 mmol/L (4-12); Blood Urea Nitrogen 24 mg/dL (7-17); Calcium 8.2 mg/dL (8.4-10.2); Carbon Dioxide 27 mmol/L (22-30); Chloride 99 mmol/L (98-107); Estimated CRCL calculation 49 ml/min; Estimated Glomerular Filt Rate 59; Glucose 146 mg/dL (65-110); Potassium 4.4 mmol/L (3.4-5.0); Sodium 134 mmol/L (137-145)
[2024-08-04 08:55] LABS: Basophils Percent Auto 0.3 % (0.2-1.2); Eosinophils Percent Auto 0.4 % (0-4.4); Immature Granulocyte Absolute 0.05 K/mm3 (0.00-0.031); Immature Granulocyte Percent A 0.5 % (0-0.5); Lymphocytes Absolute Auto 0.66 K/mm3 (0.9-3.2); Lymphocytes Percent Auto 6.5 % (18.3-44.2); Mean Corpuscular HGB Conc 28.6 g/dl (32-36); Mean Corpuscular Hemoglobin 29.6 pg (26-34); Mean Corpuscular Volume 103.6 fl (80-100); Mean Platelet Volume 10.5 fl (7.4-10.4); Monocytes Absolute Auto 0.7 K/mm3 (0.1-0.6); Neutrophils Absolute Auto 8.7 K/mm3 (1.3-6.7); Neutrophils Percent Auto 85.3 % (45.5-73.1); Nucleated Red Blood Cells Perc 0.2 % (0.0-0.2); Platelet Count Result 165 k/mm3 (150-375); Red Blood Count 3.38 M/mm3 (4.2-5.4); Red Cell Distribution Width 13.5 % (11.5-14.5); White Blood Count 10.2 K/mm3 (4.5-10.0)
[2024-08-04] MEDS: PROMETHAZINE HCL 25 MG TABLET PO (09:02)
[2024-08-04 09:23] LABS: Anisocytosis 1+; Hypochromasia 1+; Platelet Estimate Adequate (Adequate); Schistocytes None Seen
[2024-08-04] MEDS: MELOXICAM 7.5 MG TABLET 15 MG PO (09:48)
[2024-08-04] MEDS: PRIMIDONE 50 MG TABLET PO ×2 (09:48→17:21)
[2024-08-04] MEDS: oxyCODONE/ACETAMINOPHEN (*CRX) 5-325 MG TABLET 1 TABLET PO ×2 (09:48→22:35)
[2024-08-04] MEDS: SENNA/DOCUSATE SODIUM TABLET 2 TAB PO ×2 (09:49→17:21)
[2024-08-04] MEDS: PANTOPRAZOLE 40 MG TABLET PO ×2 (09:49→20:52)
[2024-08-04] MEDS: CITALOPRAM HYDROBROMIDE 10 MG TABLET PO (09:49)
[2024-08-04] MEDS: LOSARTAN POTASSIUM 100 MG TABLET PO (09:49)
[2024-08-04] MEDS: ASCORBIC ACID 500 MG TABLET 2000 MG PO (09:49)
[2024-08-04] MEDS: CHOLECALCIFEROL 5,000 UNITS TABLET 5000 UNITS BY MOUTH (09:49)
[2024-08-04] MEDS: AZELASTINE HCL NASAL 0.1% 137 MCG/SPR 30 ML BTL 2 SPRAY NASAL ×2 (09:50→20:56)
[2024-08-04] MEDS: ENOXAPARIN 40 MG/0.4 ML SYRINGE SUB-Q (09:50)
[2024-08-04] MEDS: cycloSPORINE 0.4 ML OPHTH SOLUTION 1 DROP EACH EYE ×2 (09:50→20:53)
[2024-08-04] MEDS: ONDANSETRON HCL ODT 4 MG TABLET 8 MG PO ×2 (09:50→20:52)
[2024-08-04] MEDS: FLUTICASONE PROPIONATE 0.05% NA SPR 16 GM BTL (*BKC) 1 SPRAY NASAL (09:50)
[2024-08-04] MEDS: ACETAMINOPHEN 325 MG TABLET 650 MG PO ×2 (12:53→17:21)
--- NOTE | 2024-08-04 13:50 | P.PNIM_ITS ---
Progress Note: A&P Assessment and Plan (1) Closed intertrochanteric fracture of right femur: Qualifiers: Encounter type: initial encounter Fracture alignment: displaced Qualified Code(s): S72.141A - Displaced intertrochanteric fracture of right femur, initial encounter for closed fracture Code(s): S72.141A - Displaced intertrochanteric fracture of right femur, initial encounter for closed fracture Status: Acute Assessment and Plan: Hip/pelvic XR: Mildly displaced and angulated comminuted intertrochanteric fracture the proximal right femur. Orthopedics consulted, now s/p ORIF right hip today Analgesics p.r.n. Having significant pain despite morphine dosing. received Valium IV last night before bedtime. Opiates also causing nausea, patient reports this happens with most if not all opiates. Docusate b.i.d. for constipation prevention due to opiates/Zofran. Monitor daily labs Diet as tolerated PT/OT postop Disposition per care coordination (2) Fall from ground level: Code(s): W18.30XA - Fall on same level, unspecified, initial encounter Status: Acute Assessment and Plan: Trauma workup including CXR, C-spine CT, head CT, shoulder XR or negative for acute findings. Hip/pelvic XR showed a closed proximal/right femur fracture, see above. PT/OT Analgesics p.r.n. Fall precautions (3) Essential hypertension: Code(s): I10 - Essential (primary) hypertension Status: Acute Assessment and Plan: 5/3 controlled (4) Nausea & vomiting: Code(s): R11.2 - Nausea with vomiting, unspecified Status: Acute Assessment and Plan: 5/3 resolved Subjective Date/time seen: 08/04/24 13:50 Interval history: Nausea and confusion overnight postoperatively. Completely resolved today. Tolerating food. Only pain is at her incision site when she sore like. Denied chest pain or shortness but see vomiting now. No focal weakness or numbness. Review of Systems Review of Systems: All systems reviewed & are unremarkable except as noted in HPI and below Exam Narrative: HEENT: PERRL, sclerae nonicteric, pharyngeal mucosa pink and intact NECK: No JVD CHEST: Clear to auscultation. Normal effort. HEART: NL S1/S2, regular, no murmur ABDOMEN: BS+, soft, nontender, no mass, no bruits EXTREMITIES: No cyanosis, edema, or clubbing NEUROLOGIC: CN intact and symmetric to inspection. MUSCULOSKELETAL: Tone and strength symmetric. PSYCH: Alert. Oriented to person, place, and time. Objective Data Vital Signs Vital Signs: Vital Signs - 24 hr 08/03/24 17:05 08/03/24 17:20 08/03/24 17:35 Temperature 98.2 F Pulse Rate 86 84 84 Respiratory Rate 12 14 12 Blood Pressure 176/93 H 186/75 H 178/78 H Pulse Oximetry 98 98 95 Oxygen Delivery Simple Face Mask Nasal Cannula Nasal Cannula Oxygen Flow Rate 8 2 2 Fraction of Inspired Oxygen 08/03/24 17:50 08/03/24 18:05 08/03/24 18:16 Temperature 98.0 F Pulse Rate 85 83 80 Respiratory Rate 19 16 15 Blood Pressure 172/76 H 152/65 H 132/61 Pulse Oximetry 96 98 97 Oxygen Delivery Nasal Cannula Nasal Cannula Nasal Cannula Oxygen Flow Rate 2 2 2 Fraction of Inspired Oxygen 08/03/24 18:17 08/03/24 18:32 08/03/24 20:00 Temperature 98 F 98.4 F Pulse Rate 77 78 58 L Respiratory Rate 18 18 16 Blood Pressure 154/67 H 149/57 H Pulse Oximetry 96 97 99 Oxygen Delivery Nasal Cannula Oxygen Flow Rate 2 Fraction of Inspired Oxygen 08/03/24 20:10 08/04/24 00:20 08/04/24 04:52 Temperature 99.6 F 98.5 F 99 F Pulse Rate 80 58 L 100 Respiratory Rate 16 16 16 Blood Pressure 151/56 H 133/53 L 134/58 L Pulse Oximetry 100 99 100 Oxygen Delivery Oxygen Flow Rate Fraction of Inspired Oxygen 08/04/24 08:02 08/04/24 08:15 08/04/24 08:17 Temperature 97.6 F Pulse Rate 86 Respiratory Rate 18 Blood Pressure 140/70 Pulse Oximetry 96 82 L 95 Oxygen Delivery Room Air Nasal Cannula Oxygen Flow Rate 2 Fraction of Inspired Oxygen 21 28 08/04/24 09:01 08/04/24 09:16 Temperature Pulse Rate Respiratory Rate Blood Pressure Pulse Oximetry Oxygen Delivery Nasal Cannula Nasal Cannula Oxygen Flow Rate 2 2 Fraction of Inspired Oxygen Intake/Output Intake/Output: Intake & Output 08/01/24 08/02/24 08/03/24 08/04/24 23:59 23:59 23:59 23:59 Intake Total 169 808 1996 Output Total 350 100 600 Balance 200 300 520 Meds/Results Medications: Active Medications Generic Name Dose Route Start Last Admin Trade Name Freq PRN Reason Stop Dose Admin Acetaminophen 650 mg 08/03/24 18:17 08/04/24 12:53 Acetaminophen 325 Mg Tablet PO 650 mg Q6HR DERICK Administration Amlodipine Besylate 5 mg 08/02/24 21:00 08/03/24 20:22 Amlodipine Besylate 5 Mg Tablet PO Not Given HS DERICK Artificial Tears 1 drop 08/02/24 18:26 08/03/24 09:45 Artificial Tears Ophth Soln 15 Ml Bottle EACH EYE 1 drop TID PRN Administration Dry Eyes Ascorbic Acid 2,000 mg 08/03/24 09:00 08/04/24 09:49 Ascorbic Acid 500 Mg Tablet PO 2,000 mg DAILY [facility] Administration Aspirin 81 mg 08/03/24 09:00 08/04/24 09:38 Aspirin 81 Mg Enteric Tablet PO Not Given DAILY DERICK Atorvastatin Calcium 40 mg 08/02/24 21:00 08/03/24 20:22 Atorvastatin 40 Mg Tablet PO Not Given HS [facility] Azelastine HCl 2 spray 08/02/24 21:00 08/04/24 09:50 Azelastine Hcl Nasal 0.1% 137 Mcg/Spr 30 Ml Btl NASAL 2 spray Q12HR [facility] Administration Citalopram Hydrobromide 10 mg 08/03/24 09:00 08/04/24 09:49 Citalopram Hydrobromide 10 Mg Tablet PO 10 mg DAILY [facility] Administration Cyclobenzaprine HCl 10 mg 08/03/24 18:17 Cyclobenzaprine Hcl 10 Mg Tablet PO Q8H PRN Muscle Spasm Cyclosporine 1 drop 08/02/24 21:00 08/04/24 09:50 Cyclosporine 0.4 Ml Ophth Solution EACH EYE 1 drop Q12HR DERICK Administration Dextrose 12.5 gm 08/02/24 12:56 Dextrose 50% 25 Gm/50 Ml Syringe IV PUSH PRN PRN Hypoglycemia Protocol Enoxaparin Sodium 40 mg 08/04/24 09:00 08/04/24 09:50 Enoxaparin 40 Mg/0.4 Ml Syringe SUB-Q 40 mg DAILY DERICK Administration Famotidine 20 mg 08/03/24 21:00 08/04/24 09:38 Famotidine 20 Mg Tablet PO Not Given Q12HR DERICK Fentanyl Citrate 25 mcg 08/03/24 15:24 Fentanyl Citrate Inj (*Crx) 100 Mcg/2 Ml Vial IV PUSH Q2M PRN Pain Fluticasone Propionate 1 spray 08/03/24 09:00 08/04/24 09:50 Fluticasone Propionate 0.05% Na Spr 16 Gm Btl (*Bkc) NASAL 1 spray DAILY DERICK Administration Glucagon 1 mg 08/02/24 12:56 Glucagon For Inj 1 Mg Vial IM PRN PRN Hypoglycemia Protocol Glucose 15 gm 08/02/24 12:56 Glucose Oral Gel 15 Gm Of Glucse In 37.5 Gm Tube PO PRN PRN Hypoglycemia Protocol Hydromorphone HCl 1 mg 08/03/24 18:32 08/04/24 03:16 Hydromorphone Hcl Inj (*Crx) 2 Mg/Ml Vial IV PUSH 1 mg Q2H PRN Administration Breakthrough Pain Rated 7-10 or NPO Hydromorphone HCl 0.5 mg 08/03/24 18:33 Hydromorphone Hcl Inj (*Crx) 2 Mg/Ml Vial IV PUSH Q2H PRN Breakthrough Pain Rated 4-6 or NPO Hydroxyzine Pamoate 50 mg 08/03/24 18:17 Hydroxyzine Pamoate 25 Mg Capsule PO Q4H PRN Itching Dextrose 1,000 mls @ 100 mls/hr 08/02/24 12:56 Dextrose 5% 1,000 Ml IVPB PRN PRN Hypoglycemia Protocol Lactated Ringer's 1,000 mls @ 30 mls/hr 08/03/24 15:25 08/03/24 20:23 Lr - Lactated Ringers Iv IV CONT Not Given .Q24H DERICK Sodium Chloride 1,000 mls @ 125 mls/hr 08/03/24 18:17 08/04/24 04:27 Normal Saline Iv IV CONT 125 mls/hr .Q8H DERICK Administration Cefazolin Sodium 2 gm in 50 mls @ 100 mls/hr 08/03/24 22:00 08/04/24 05:37 Ancef 2 Gm/D5w 50 Ml IVPB 08/04/24 14:29 100 mls/hr Q8HR DERICK Administration Loratadine 10 mg 08/03/24 09:00 08/04/24 09:38 Loratadine 10 Mg Tablet PO Not Given QAM DERICK Lorazepam 0.25 mg 08/03/24 19:15 Lorazepam Inj (*Crx) 2 Mg/Ml Vial IV PUSH 08/04/24 19:07 Q6H PRN Nausea And Vomiting Losartan Potassium 100 mg 08/03/24 09:00 08/04/24 09:49 Losartan Potassium 100 Mg Tablet PO 100 mg DAILY [facility] Administration Meclizine HCl 25 mg 08/02/24 18:09 Meclizine Hcl 25 Mg Tablet PO TID PRN Dizziness Meloxicam 15 mg 08/03/24 09:00 08/04/24 09:48 Meloxicam 7.5 Mg Tablet PO 15 mg DAILY [facility] Administration Miscellaneous Information 0 each 08/02/24 00:01 Propranolol Er 80mg Nonform Can Pt Bring From Home?? XX 09/01/24 00:00 CLARIFY [facility] Multi-Ingred Cream/Lotion/Oil/Oint 1 applic 08/02/24 21:00 08/03/24 20:22 Mineral Oil/White Petrolatum Ointment EACH EYE 1 applic QHS [facility] Administration Multivitamins Therapeutic 1 tablet 08/03/24 09:00 08/04/24 09:39 Multivitamins Therapeutic Tab (*Bkc) PO Not Given DAILY [facility] Naloxone HCl 0.1 mg 08/02/24 18:12 Naloxone Hcl 0.4 Mg/Ml Vial IV PUSH Q5MIN PRN Sedation Naloxone HCl 0.1 mg 08/03/24 18:17 Naloxone Hcl 0.4 Mg/Ml Vial IV PUSH Q2M PRN Opiate Reversal Non-Formulary Medication 80 mg 08/03/24 09:00 Propranolol PO 09/02/24 08:59 DAILY [facility] Ondansetron HCl 4 mg 08/03/24 15:24 08/03/24 17:36 Ondansetron Inj 4 Mg/2 Ml Vial IV PUSH 4 mg ONCE PRN Administration Nausea And Vomiting Ondansetron HCl 8 mg 08/03/24 22:00 08/04/24 09:50 Ondansetron Hcl Odt 4 Mg Tablet PO 8 mg Q12H [facility] Administration Oxycodone/Acetaminophen 1 tablet 08/03/24 18:17 08/04/24 09:48 Oxycodone/Acetaminophen (*Crx) 5-325 Mg Tablet PO 1 tablet Q4H PRN Administration Pain Rated 4-6 Oxycodone/Acetaminophen 1 tab 08/03/24 18:17 Oxycodone/Acetaminophen (*Crx) 10-325 Mg Tablet PO Q6H PRN Pain Rated 7-10 Pantoprazole Sodium 40 mg 08/02/24 21:00 08/04/24 09:49 Pantoprazole 40 Mg Tablet PO 40 mg Q12HR DERICK Administration Polyethylene Glycol 17 gm 08/04/24 09:00 08/04/24 09:39 Polyethylene Glycol 3350 17 Gm Powd.Pack PO Not Given QAM [facility] Primidone 50 mg 08/03/24 09:00 08/04/24 09:48 Primidone 50 Mg Tablet PO 50 mg BID DERICK Administration Prochlorperazine Edisylate 10 mg 08/03/24 18:52 Prochlorperazine Edisylate 10 Mg/2 Ml Vial IV PUSH Q6H PRN Nausea And Vomiting Promethazine HCl 25 mg 08/03/24 19:02 08/04/24 09:02 Promethazine Hcl 25 Mg Tablet PO 25 mg Q6H PRN Administration Nausea And Vomiting Saccharomyces Boulardii 250 mg 08/02/24 21:00 08/03/24 20:22 Saccharomyces Boulardii 250 Mg Capsule PO Not Given HS [facility] Senna/Docusate Sodium 2 tab 08/03/24 18:17 08/04/24 09:49 Senna/Docusate Sodium Tablet PO 2 tab BID DERICK Administration Sumatriptan Succinate 100 mg 08/02/24 18:09 Sumatriptan Succinate 25 Mg Tablet PO Q2H PRN migraine headache Tramadol HCl 50 mg 08/03/24 18:17 Tramadol Hcl (*Crx) 50 Mg Tablet PO Q4H PRN Pain Rated 1-3 Vitamin D 5,000 units 08/03/24 09:00 08/04/24 09:49 Cholecalciferol 5,000 Units Tablet BY MOUTH 5,000 units DAILY DERICK Administration Radiology Results: ITS Impressions Head CT 08/02/24 10:57 Impression: No significant abnormality seen. Cervical Spine CT 08/02/24 10:58 IMPRESSION: 1. Mild cervical spondylosis. No acute osseous abnormality. Chest X-Ray 08/02/24 11:08 IMPRESSION: 1. No acute cardiopulmonary disease. Shoulder X-Ray 08/02/24 11:09 IMPRESSION: 1. Old proximal right humeral fracture which is healed in near-anatomic alignment. No acute osseous abnormality. 2. Mild right glenohumeral and acromioclavicular osteoarthritis. Hip/Pelvis X-Ray 08/02/24 11:12 IMPRESSION: 1. Mildly displaced and angulated comminuted intertrochanteric fracture the proximal right femur. Intraoperative X-Ray 08/03/24 16:39 IMPRESSION: 1. Near-anatomic alignment post open reduction internal fixation of a comminuted intertrochanteric fracture the proximal right femur. See procedure note for further detail. Labs Labs: Laboratory Results - last 24 hr 08/04/24 08/04/24 06:00 08:50 WBC 10.2 H RBC 3.38 L Hgb 10.0 L Hct 35.0 L MCV 103.6 H D MCH 29.6 MCHC 28.6 L RDW 13.5 Plt Count 165 MPV 10.5 H Immature Gran % (Auto) 0.5 Neut % (Auto) 85.3 H Lymph % (Auto) 6.5 L [place] % (Auto) 7.0 Eos % (Auto) 0.4 Baso % (Auto) 0.3 Lymph # (Auto) 0.66 L [place] # (Auto) 0.7 H Eos # (Auto) 0.0 Baso # (Auto) 0.0 Abs Immat Gran (auto) 0.05 H Absolute Neuts (auto) 8.7 H Absolute Nucleated RBC 0.020 H Band Neutrophils % Not Reportable Nucleated RBC % 0.2 Platelet Estimate Adequate Hypochromasia 1+ Anisocytosis 1+ Schistocytes None seen Sodium 134 L Potassium 4.4 Chloride 99 Carbon Dioxide 27 Anion Gap 8 BUN 24 H Creatinine 0.93 Estim Creat Clear Calc 49 Estimated GFR 59 Glucose 146 H Calcium 8.2 L
[2024-08-04] MEDS: CYCLOBENZAPRINE HCL 10 MG TABLET PO (20:51)
[2024-08-04] MEDS: FAMOTIDINE 20 MG TABLET PO (20:52)
[2024-08-04] MEDS: SACCHAROMYCES BOULARDII 250 MG CAPSULE PO (20:52)
[2024-08-04] MEDS: amLODIPine BESYLATE 5 MG TABLET PO (20:53)
[2024-08-04] MEDS: MINERAL OIL/WHITE PETROLATUM OINTMENT 1 APPLIC EACH EYE (20:53)
[2024-08-04] MEDS: ATORVASTATIN 40 MG TABLET PO (20:53)
[2024-08-05] MEDS: ACETAMINOPHEN 325 MG TABLET 650 MG PO ×3 (00:06→11:22)
[2024-08-05 06:00] VITALS: BP 157/65; PULSE 77; RESP 18; TEMP 36.1; O2SAT 92
[2024-08-05] MEDS: MELOXICAM 7.5 MG TABLET 15 MG PO (09:17)
[2024-08-05] MEDS: cycloSPORINE 0.4 ML OPHTH SOLUTION 1 DROP EACH EYE (09:17)
[2024-08-05] MEDS: FAMOTIDINE 20 MG TABLET PO (09:18)
[2024-08-05] MEDS: PANTOPRAZOLE 40 MG TABLET PO (09:18)
[2024-08-05] MEDS: LORATADINE 10 MG TABLET PO (09:18)
[2024-08-05] MEDS: CITALOPRAM HYDROBROMIDE 10 MG TABLET PO (09:18)
[2024-08-05] MEDS: ASCORBIC ACID 500 MG TABLET 2000 MG PO (09:18)
[2024-08-05] MEDS: PRIMIDONE 50 MG TABLET PO (09:18)
[2024-08-05] MEDS: AZELASTINE HCL NASAL 0.1% 137 MCG/SPR 30 ML BTL 2 SPRAY NASAL (09:18)
[2024-08-05] MEDS: FLUTICASONE PROPIONATE 0.05% NA SPR 16 GM BTL (*BKC) 1 SPRAY NASAL (09:18)
[2024-08-05] MEDS: ONDANSETRON HCL ODT 4 MG TABLET 8 MG PO (09:18)
[2024-08-05] MEDS: ASPIRIN 81 MG ENTERIC TABLET PO (09:18)
[2024-08-05] MEDS: CHOLECALCIFEROL 5,000 UNITS TABLET 5000 UNITS BY MOUTH (09:18)
[2024-08-05] MEDS: LOSARTAN POTASSIUM 100 MG TABLET PO (09:18)
[2024-08-05] MEDS: MULTIVITAMINS THERAPEUTIC TAB (*BKC) 1 TABLET PO (09:19)
[2024-08-05] MEDS: polyethylene glycoL 3350 17 GM POWD.PACK PO (09:19)
[2024-08-05] MEDS: oxyCODONE/ACETAMINOPHEN (*CRX) 5-325 MG TABLET 1 TABLET PO (09:19)
[2024-08-05] MEDS: ENOXAPARIN 40 MG/0.4 ML SYRINGE SUB-Q (09:19)
[2024-08-05] MEDS: SENNA/DOCUSATE SODIUM TABLET 2 TAB PO (09:19)
--- NOTE | 2024-08-05 10:37 | PHAR ---
HOME MED PROPRANOLOL ER 80 MG CAP; TAKE 1 CAPSULE BY MOUTH ONCE DAILY. VERIFIED BY PHARMACY.
[2024-08-05] MEDS: PROPRANOLOL 80 MG 80 EACH PO (11:22)
--- NOTE | 2024-08-05 11:31 | P.DS_ITS ---
DS: Admitting Diagnosis Discharge Date 08/05/2024 Admitting Diagnosis Intertrochanteric fracture right femur DS: Discharge Diagnosis Discharge Diagnosis (1) Closed intertrochanteric fracture of right femur: Qualifiers: Encounter type: initial encounter Fracture alignment: displaced Qualified Code(s): S72.141A - Displaced intertrochanteric fracture of right femur, initial encounter for closed fracture Code(s): S72.141A - Displaced intertrochanteric fracture of right femur, initial encounter for closed fracture Status: Acute Assessment and Plan: Hip/pelvic XR: Mildly displaced and angulated comminuted intertrochanteric fracture the proximal right femur. Orthopedics consulted, now s/p ORIF right hip 08/03 Analgesics p.r.n. Having significant pain despite morphine dosing. received Valium IV last night before bedtime. Opiates also causing nausea, patient reports this happens with most if not all opiates. Docusate b.i.d. for constipation prevention due to opiates/Zofran. Monitor daily labs Diet as tolerated PT/OT postop Disposition: Acute Rehab (2) Fall from ground level: Code(s): W18.30XA - Fall on same level, unspecified, initial encounter Status: Acute Assessment and Plan: Trauma workup including CXR, C-spine CT, head CT, shoulder XR or negative for acute findings. Hip/pelvic XR showed a closed proximal/right femur fracture, see above. PT/OT Analgesics p.r.n. Fall precautions (3) Essential hypertension: Code(s): I10 - Essential (primary) hypertension Status: Acute Assessment and Plan: 08/05 controlled (4) Nausea & vomiting: Code(s): R11.2 - Nausea with vomiting, unspecified Status: Acute Assessment and Plan: 08/04 resolved DS: Summary Hospital Course Hospital Course: Admitted [facility] after fall from standing height and consequent intertrochanteric fracture of right femur that was closed. She had an uneventful ORIF . Had postoperative nausea and confusion that resolved by August 04. She was tolerating diet and doing for physical therapy. Laboratory data as outlined below. She was discharged to [facility] [facility] for inpatient reach to transfer by private vehicle. Time Spent with Patient Time attestation: Total time spent providing and/or coordinating discharge services: Exam Narrative: HEENT: PERRL, sclerae nonicteric, pharyngeal mucosa pink and intact NECK: No JVD CHEST: Clear to auscultation. Normal effort. HEART: NL S1/S2, regular, no murmur ABDOMEN: BS+, soft, nontender, no mass, no bruits EXTREMITIES: No cyanosis, edema, or clubbing NEUROLOGIC: CN intact and symmetric to inspection. MUSCULOSKELETAL: Tone and strength symmetric. PSYCH: Alert. Oriented to person, place, and time. Discharge Plan Discharge Consulting providers: Ramo Cavanaugh Discharging Clinician: Ryan Iraheta Patient Disposition: [facility] Activity: other - see discharge instructions Diet: heart healthy Discharge Instructions: Ortho instructions: * D/C to SNF/rehab * Follow up in office on 09/03/24-11:15A (11:00A for xrays in office) and 09/28/24-8:30A (8:00A for xrays in office) * Wound Care: Hip: remove sobeida at 2 weeks post op. Daily dressing changes until healed. * PT: Partial weight bearing with a walker. * DVT prophylaxis: continue Lovenox for 30 days total * Pain medication: Oxycodone Patient Language: Japanese Follow-up/Referrals: George Sun MD [Primary Care Provider] - 2 Weeks Ramo Cavanaugh MD [Physician] - 2 Weeks Discharge Medications: New oxycodone-acetaminophen 5-325 mg Tablet 1 tablet PO Q4H PRN (Reason: Pain Rated 4-6) Qty: 10 0RF oxycodone-acetaminophen 10-325 mg Tablet 1 tablet PO Q6H PRN (Reason: Pain Rated 7-10) Qty: 6 0RF sennosides-docusate sodium [Senokot-S] 8.6-50 mg Tablet 2 tab-cap PO BID Qty: 60 0RF enoxaparin [Lovenox] 40 mg/0.4 mL Syringe 40 mg subcut DAILY Qty: 30 0RF polyethylene glycol 3350 [Miralax] 17 gram Powder In Packet 17 g PO QAM Qty: 30 0RF dextrose [Glutose-15] 40 % Gel 15 g PO PRN PRN (Reason: Hypoglycemia) Qty: 15 0RF famotidine 20 mg Tablet 20 mg PO Q12HR Qty: 60 0RF Continued meclizine 25 mg Tablet 25 mg PO TID PRN (Reason: Dizziness) propranolol 80 mg capsule,extended release 24 hr 80 mg PO DAILY triamcinolone acetonide 0.1 % ointment 1 applic topical 3XW aspirin [Adult Aspirin Regimen] 81 mg tablet,delayed release (DR/EC) 81 mg PO DAILY cyclosporine 0.05 % dropperette 1 drp EACH EYE Q12H Refresh P.M. 57.3-42.5 % ointment 1 applic EACH EYE QHS Saccharomyces boulardii [Digest Probiotic (S.boulardii)] 250 mg capsule 250 mg PO HS meloxicam 15 mg tablet 15 mg PO DAILY Qty: 30 3RF primidone 50 mg tablet 50 mg PO BID nystatin 100,000 unit/gram ointment 1 applic topical 3XW PRN (Reason: INFECTION) ascorbic acid (vitamin C) 1,000 mg capsule 2 g PO DAILY Patient Comments: AM Refresh Contacts Drops 1 drp EACH EYE TID PRN (Reason: Dry Eyes) cetirizine [Zyrtec] 10 mg tablet 10 mg PO DAILY amlodipine [Norvasc] 5 mg tablet 5 mg PO HS fluticasone propionate 50 mcg/actuation spray,suspension 1 spray intranasal DAILY Rx Instructions: EACH NOSTRIL cholecalciferol (vitamin D3) [Vitamin D3] 125 mcg (5,000 unit) tablet 125 mcg PO DAILY calcium citrate 200 mg (950 mg) tablet 1,000 mg PO DAILY sumatriptan succinate 100 mg tablet 100 mg PO Q2H PRN (Reason: migraine headache) Rx Instructions: TAKE 1 TABLET BY MOUTH AT ONSET OF HEADACHE AND REPEAT AFTER 2 HOURS. DO NOT EXCEED 200MG (2 TABLETS) IN 24 HOURS. omeprazole 40 mg capsule,delayed release(DR/EC) 40 mg PO .NOON multivitamin Tablet 1 tablet PO DAILY azelastine 137 mcg (0.1 %) Aerosol,[place] 2 spray INTRANASAL Q12H atorvastatin 40 mg tablet 40 mg PO HS Qty: 90 3RF losartan 100 mg tablet 100 mg PO DAILY Qty: 90 4RF citalopram 10 mg tablet 10 mg PO DAILY Qty: 90 2RF Date of admission: 08/02/24 13:34 Primary Care Provider: George Sun Admitting Provider: Eris Raya Attending physician on admission: Suly Monsivais Condition: Stable
== END 2024-08-05 15:40 | DRG 482 ==
LOC: ANHED 13:04 → ANH3MEDSUR 13:22
PROVIDERS: Orthopaedic Surgery; Physician Assistant Surgical; Student in an Organized Health Care Education/Training Program; Admitting Provider General Practice; Emergency Provider Physician Assistant; PCP Family Medicine; Visit Provider Internal Medicine
PROC: 0QS706Z Reposition Left Upper Femur with Intramedullary Internal Fixation Device, Open Approach (ICD-10-PCS; CPT 27245; principal; 2024-08-03 15:00)
DX: S72.141A Displaced intertrochanteric fracture of right femur, initial encounter for closed fracture (principal); W18.30XA Fall on same level, unspecified, initial encounter; M16.11 Unilateral primary osteoarthritis, right hip; I10 Essential (primary) hypertension; R11.2 Nausea with vomiting, unspecified; K21.9 Gastro-esophageal reflux disease without esophagitis; M17.10 Unilateral primary osteoarthritis, unspecified knee; E03.9 Hypothyroidism, unspecified; E78.2 Mixed hyperlipidemia; M19.90 Unspecified osteoarthritis, unspecified site; E78.5 Hyperlipidemia, unspecified; M70.62 Trochanteric bursitis, left hip; Z96.652 Presence of left artificial knee joint; Z85.3 Personal history of malignant neoplasm of breast; Z90.710 Acquired absence of both cervix and uterus; E66.9 Obesity, unspecified; Z68.31 Body mass index [BMI] 31.0-31.9, adult
CPT/HCPCS: 36415; 70450; 71045; 72125; 73030; 73502; 80048; 80053; 85025; 85610; 85730; 86850; 86900; 86901; 93005; 96374; 96375; 96376; 97162; 97165; 97530; 97535; 99199; 99285; A9270; C1713; G0378; J0330; J0690; J1171; J1200; J1650; J2270; J2405; J2704; J3010; J3360; J7030; J7120

== ENCOUNTER 2024-08-07 09:45 | Emergency (ER) | payer MEDICARE, OTHER, SELFPAY ==
[2024-08-07 09:45] VITALS: BP 142/62; PULSE 66; RESP 17; TEMP 36.3; O2SAT 98
[2024-08-07 10:45] LABS: Basophils Percent Auto 0.4 % (0.2-1.2); Eosinophils Absolute Auto 0.1 K/mm3 (0-0.3); Eosinophils Percent Auto 0.8 % (0-4.4); Hematocrit 25.8 % (37.0-47.0); Hemoglobin 8.1 g/dL (12.0-15.0); Immature Granulocyte Absolute 0.02 K/mm3 (0.00-0.031); Immature Granulocyte Percent A 0.3 % (0-0.5); Lymphocytes Absolute Auto 1.34 K/mm3 (0.9-3.2); Lymphocytes Percent Auto 18.2 % (18.3-44.2); Mean Corpuscular HGB Conc 31.4 g/dl (32-36); Mean Corpuscular Hemoglobin 29.1 pg (26-34); Mean Corpuscular Volume 92.8 fl (80-100); Mean Platelet Volume 9.3 fl (7.4-10.4); Monocytes Absolute Auto 0.8 K/mm3 (0.1-0.6); Monocytes Percent Auto 10.7 % (2.6-8.5); Neutrophils Absolute Auto 5.1 K/mm3 (1.3-6.7); Neutrophils Percent Auto 69.6 % (45.5-73.1); Platelet Count Result 192 k/mm3 (150-375); Red Blood Count 2.78 M/mm3 (4.2-5.4); Red Cell Distribution Width 13.5 % (11.5-14.5); White Blood Count 7.4 K/mm3 (4.5-10.0)
[2024-08-07 10:53] LABS: Alanine Aminotransferase 26 U/L (6-35); Albumin Level 3.6 g/dL (3.5-5.1); Alkaline Phosphatase 71 U/L (38-126); Anion Gap 5 mmol/L (4-12); Aspartate Amino Transferase 46 U/L (14-36); Bilirubin,Total 1.4 mg/dL (0.2-1.3); Blood Urea Nitrogen 15 mg/dL (7-17); Calcium 8.4 mg/dL (8.4-10.2); Carbon Dioxide 32 mmol/L (22-30); Chloride 94 mmol/L (98-107); Estimated CRCL calculation 53 ml/min; Estimated Glomerular Filt Rate > 60; Glucose 129 mg/dL (65-110); Potassium 3.3 mmol/L (3.4-5.0); Sodium 131 mmol/L (137-145)
--- NOTE | 2024-08-07 10:53 | ED_ITS ---
HPI - Recheck/Abnormal Lab/Rx General Chief Complaint: Recheck/Abnormal Lab/Rx Stated Complaint: ?internal bleeding Time Seen by Provider: 08/07/24 10:22 History of Present Illness HPI narrative: Pt sent from rehab with low Hb on labs. Pt had femur rika for femur fx repair last week by Dr Cortez. Pt denies abd pain or black stools Related Data Home Medications ?Medication ?Instructions ?Recorded ?Confirmed ?Last Taken ?Type propranolol 80 mg capsule,24 80 mg PO DAILY TREMORS 02/19/19 08/05/24 08/05/24 History hr,extended release primidone 50 mg tablet 50 mg PO BID TREMORS 06/01/19 08/05/24 08/05/24 History azelastine 137 mcg (0.1 %) nasal 2 spray intranasal Q12H 01/18/20 08/05/24 08/05/24 History spray multivitamin 1 tablet PO DAILY 01/18/20 08/05/24 08/05/24 History triamcinolone acetonide 0.1 % 1 applic topical 3XW 02/06/20 08/05/24 Unknown History topical ointment aspirin 81 mg tablet,delayed 81 mg PO DAILY 10/20/20 08/05/24 08/05/24 History release (Adult Aspirin Regimen) meclizine 25 mg tablet 25 mg PO TID PRN Dizziness 03/27/22 08/05/24 Unknown History ascorbic acid (vitamin C) 1,000 mg 2 g PO DAILY 04/12/22 08/05/24 08/05/24 History capsule carboxymethylcellulose sodium 1 drp EACH EYE TID PRN Dry Eyes 04/12/22 08/05/24 08/03/24 History (Refresh Contacts eye drops) nystatin 100,000 unit/gram topical 1 applic topical 3XW PRN INFECTION 04/12/22 08/05/24 Unknown History ointment cyclosporine 0.05 % eye drops in a 1 drp EACH EYE Q12H 05/24/23 08/05/24 08/05/24 History dropperette cetirizine 10 mg tablet (Zyrtec) 10 mg PO DAILY 12/08/23 08/05/24 08/05/24 History Saccharomyces boulardii 250 mg 250 mg PO HS 05/15/24 08/05/24 08/04/24 History capsule (Digest Probiotic (S.boulardii)) white petrolatum-mineral oil 57.3 1 applic EACH EYE QHS 05/15/24 08/05/24 08/04/24 History %-42.5 % eye ointment (Refresh P.M.) amlodipine 5 mg tablet (Norvasc) 5 mg PO HS 06/11/24 08/05/24 08/04/24 History calcium citrate 1,000 mg PO DAILY 08/02/24 08/05/24 08/02/24 History cholecalciferol (vitamin D3) 125 125 mcg PO DAILY 08/02/24 08/05/24 08/05/24 History mcg (5,000 unit) tablet (Vitamin D3) fluticasone propionate 50 1 spray intranasal DAILY 08/02/24 08/05/24 08/05/24 History mcg/actuation nasal spray,suspension omeprazole 40 mg capsule,delayed 40 mg PO .NOON 08/02/24 08/05/24 08/05/24 History release sumatriptan succinate 100 mg tablet 100 mg PO Q2H PRN migraine headache 08/02/24 08/05/24 Unknown History Allergies Allergy/AdvReac Type Severity Reaction Status Date / Time sulfamethoxazole (From Allergy Severe Swelling Verified 08/07/24 09:58 Bactrim) of Lip/Tongue/Throat trimethoprim (From Bactrim) Allergy Severe Swelling Verified 08/07/24 09:58 of Lip/Tongue/Throat levofloxacin Allergy Unknown Rash Verified 08/07/24 09:58 nitrofurantoin Allergy STOMACH Verified 08/07/24 09:58 UPSET amoxicillin AdvReac STOMACH Verified 08/07/24 09:58 UPSET clavulanic acid (From AdvReac Diarrhea Verified 08/07/24 09:58 Augmentin) Review of Systems 2 Review of Systems: All systems reviewed & are unremarkable except as noted in HPI and below PMFSH Past Medical History Medical History GERD without esophagitis Migraine Vertigo Essential tremor Knee osteoarthritis Chronic upper back pain BMI 29.0-29.9,adult Shoulder pain, bilateral Trochanteric bursitis of left hip History of fracture of arm (~2013) History of breast cancer s/p radiation Abnormal kidney function Anxiety disorder, unspecified Cardiac murmur, unspecified Essential (primary) hypertension Hypothyroidism Migraine without aura and with status migrainosus, not intractable Mixed hyperlipidemia Vitamin D deficiency, unspecified Surgical History Surgical History Status post trigger finger release (~02/03/23) Right Thumb History of bladder surgery (~2016) TVT History of left knee replacement (~2012) History of arthroscopy of left knee (~2007) History of hysterectomy (~2004) Family History Family History Father Hypertension, Onset Age: 63 Mother Hypertension, Onset Age: 59 Family history of malignant neoplasm Sibling Hypertension Family history of coronary artery disease Grandparent Diabetes mellitus, Onset Age: 83 Social History Social History Smoking status: Never smoker Second hand tobacco smoke exposure: No Alcohol intake: never Substance use: never Substance use type: does not use Do You Feel Safe in your Home?: Yes Lack of Transportation: No Lack of Food: Never True Current Housing: I Have Housing Concerned About Future Housing: No Difficulty Paying Gas/Electric Bills: No Difficulty Paying for Meds: No Currently Unemployed: No Education: High School Diploma/GED Difficulty w/ Childcare or Family Care: No Living arrangements: with family Occupation/Education: retired 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 Gender identity (if verbalized by the patient): Female Spiritual care concerns: No Exam 2 Const: General: healthy appearing and no acute distress Nutritional Appearance: well nourished Orientation/consciousness: patient oriented x3 Limitations: no limitations Eyes: EOM: EOMs intact bilaterally Resp: Effort & Inspection: normal respiratory effort Auscultation: clear to auscultation bilaterally Cardio: Rate: regular rate Rhythm: regular rhythm GI: GI Palp: Yes Soft to palpation and No Tenderness to palpation present (GI) Auscultation: normal bowel sounds Skin: General skin exam: normal color Wounds: no wounds Neuro: General: patient oriented x3, moves all extremities and no focal motor deficits Speech: normal speech Extrem: General: no clubbing, cyanosis or edema Other: bruising to surgical site and some tenderness but no sign of infection Psych: Mental Status: mental status grossly normal Affect: normal affect Attitude: cooperative Course Vital Signs Vital signs: Vital Signs Temperature 97.4 F L 08/07/24 09:45 Pulse Rate 66 08/07/24 09:45 Respiratory Rate 17 08/07/24 09:45 Blood Pressure 142/62 H 08/07/24 09:45 Pulse Oximetry 98 08/07/24 09:45 Oxygen Delivery Room Air 08/07/24 09:45 Temperature 97.8 F 08/07/24 13:39 Pulse Rate 66 08/07/24 14:12 Respiratory Rate 14 08/07/24 14:12 Blood Pressure 121/66 08/07/24 14:12 Pulse Oximetry 99 08/07/24 14:12 Oxygen Delivery Room Air 08/07/24 09:45 MDM - Recheck/Abnormal Lab/Rx MDM Narrative Medical decision making narrative: Pt presents with low hb/hct status post surgery to fix right femur 5 days ago. cbc repeated and same as yesterday and today. Heme neg rectal. discussed with Gina Cortez and said not unusual for this surgery and should be ok to go back to rehab no transfusion needed. discussed with family and patient and they are comfortable with discharge. Lab Data 08/07/24 10:35 08/07/24 10:35 Labs: Lab Results 08/07/24 Range/Units 10:35 WBC 7.4 (4.5-10.0) K/mm3 RBC 2.78 L (4.2-5.4) M/mm3 Hgb 8.1 L (12.0-15.0) g/dL Hct 25.8 L (37.0-47.0) % MCV 92.8 (80-100) fl MCH 29.1 (26-34) pg MCHC 31.4 L (32-36) g/dl RDW 13.5 (11.5-14.5) % Plt Count 192 (150-375) k/mm3 MPV 9.3 (7.4-10.4) fl Immature Gran % (Auto) 0.3 (0-0.5) % Neut % (Auto) 69.6 (45.5-73.1) % Lymph % (Auto) 18.2 L (18.3-44.2) % [place] % (Auto) 10.7 H (2.6-8.5) % Eos % (Auto) 0.8 (0-4.4) % Baso % (Auto) 0.4 (0.2-1.2) % Lymph # (Auto) 1.34 (0.9-3.2) K/mm3 [place] # (Auto) 0.8 H (0.1-0.6) K/mm3 Eos # (Auto) 0.1 (0-0.3) K/mm3 Baso # (Auto) 0.0 (0.0-0.1) K/mm3 Abs Immat Gran (auto) 0.02 (0.00-0.031) K/mm3 Absolute Neuts (auto) 5.1 (1.3-6.7) K/mm3 Absolute Nucleated RBC 0.000 (0.0-0.012) K/mm3 Nucleated RBC % 0.0 (0.0-0.2) % PT 12.9 (11.1-14.7) Seconds INR 0.9 APTT 25.6 (22.3-36.8) Seconds Sodium 131 L (137-145) mmol/L Potassium 3.3 L (3.4-5.0) mmol/L Chloride 94 L (98-107) mmol/L Carbon Dioxide 32 H (22-30) mmol/L Anion Gap 5 (4-12) mmol/L BUN 15 (7-17) mg/dL Creatinine 0.88 (0.7-1.0) mg/dL Estim Creat Clear Calc 53 ml/min Estimated GFR > 60 (59 - ) Glucose 129 H (65-110) mg/dL Calcium 8.4 (8.4-10.2) mg/dL Total Bilirubin 1.4 H (0.2-1.3) mg/dL AST 46 H (14-36) U/L ALT 26 (6-35) U/L Alkaline Phosphatase 71 (38-126) U/L Total Protein 7.0 (6.3-8.2) g/dL Albumin 3.6 (3.5-5.1) g/dL Blood Type O Positive Antibody Screen Negative Discharge Plan Discharge Clinical Impression: Anemia Patient Disposition: Home Condition: Stable Instructions: Antibiotic Form, Anemia (ED) Patient Language: Lithuanian Prescriptions: No Action meclizine 25 mg Tablet 25 mg PO TID PRN (Reason: Dizziness) propranolol 80 mg capsule,extended release 24 hr 80 mg PO DAILY triamcinolone acetonide 0.1 % ointment 1 applic topical 3XW aspirin [Adult Aspirin Regimen] 81 mg tablet,delayed release (DR/EC) 81 mg PO DAILY cyclosporine 0.05 % dropperette 1 drp EACH EYE Q12H Refresh P.M. 57.3-42.5 % ointment 1 applic EACH EYE QHS Saccharomyces boulardii [Digest Probiotic (S.boulardii)] 250 mg capsule 250 mg PO HS meloxicam 15 mg tablet 15 mg PO DAILY Qty: 30 3RF primidone 50 mg tablet 50 mg PO BID nystatin 100,000 unit/gram ointment 1 applic topical 3XW PRN (Reason: INFECTION) ascorbic acid (vitamin C) 1,000 mg capsule 2 g PO DAILY Patient Comments: AM Refresh Contacts Drops 1 drp EACH EYE TID PRN (Reason: Dry Eyes) cetirizine [Zyrtec] 10 mg tablet 10 mg PO DAILY amlodipine [Norvasc] 5 mg tablet 5 mg PO HS fluticasone propionate 50 mcg/actuation spray,suspension 1 spray intranasal DAILY Rx Instructions: EACH NOSTRIL cholecalciferol (vitamin D3) [Vitamin D3] 125 mcg (5,000 unit) tablet 125 mcg PO DAILY calcium citrate 200 mg (950 mg) tablet 1,000 mg PO DAILY sumatriptan succinate 100 mg tablet 100 mg PO Q2H PRN (Reason: migraine headache) Rx Instructions: TAKE 1 TABLET BY MOUTH AT ONSET OF HEADACHE AND REPEAT AFTER 2 HOURS. DO NOT EXCEED 200MG (2 TABLETS) IN 24 HOURS. omeprazole 40 mg capsule,delayed release(DR/EC) 40 mg PO .NOON polyethylene glycol 3350 [Miralax] 17 gram Powder In Packet 17 g PO QAM Qty: 30 0RF sennosides-docusate sodium [Senokot-S] 8.6-50 mg Tablet 2 tab-cap PO BID Qty: 60 0RF dextrose [Glutose-15] 40 % Gel 15 g PO PRN PRN (Reason: Hypoglycemia) Qty: 15 0RF oxycodone-acetaminophen 5-325 mg Tablet 1 tablet PO Q4H PRN (Reason: Pain Rated 4-6) Qty: 10 0RF famotidine 20 mg Tablet 20 mg PO Q12HR Qty: 60 0RF oxycodone-acetaminophen 10-325 mg Tablet 1 tablet PO Q6H PRN (Reason: Pain Rated 7-10) Qty: 6 0RF enoxaparin [Lovenox] 40 mg/0.4 mL Syringe 40 mg subcut DAILY Qty: 30 0RF multivitamin Tablet 1 tablet PO DAILY azelastine 137 mcg (0.1 %) Aerosol,[place] 2 spray INTRANASAL Q12H atorvastatin 40 mg tablet 40 mg PO HS Qty: 90 3RF losartan 100 mg tablet 100 mg PO DAILY Qty: 90 4RF citalopram 10 mg tablet 10 mg PO DAILY Qty: 90 2RF Follow-up/Referrals: George Sun MD [Primary Care Provider] -
[2024-08-07 11:07] LABS: INR 0.9; Prothrombin Time 12.9 Seconds (11.1-14.7)
[2024-08-07 11:08] LABS: Partial Thromboplastin Time 25.6 Seconds (22.3-36.8)
--- OUTSIDE RECORDS SUMMARY | 2024-08-07 11:20 | XMS_ITS | Data Portability ---
Author Organization [facility], [address] [place] [address] ([place]) Address [address] [place] [address] Assessment Encounter Date Assessment Date Assessment LastModified [...] CLINI C [address] [place] [address] Ph. Corona Main MD, PhD, Medic al Direc HAWA Greene MD Patie nt: MANOLO ARAUJO ID: [id number] Repor t Statu s: Final :0 1950 Case #: [id number] Age: 73 Y Gende r: F Date Colle cted: 01/15 MRN # : [id number] Date Recei nunu: 01/15 Repor sander [...] e that is 0.2 cm in [facility] nona. The speci men is entir dena submi tted for histo logic study in one casse tte. CLINI [facility] MAT[facility] N: Colon scree lb. Not Available [place] Only - [facility] [address], [address], 01/17/2024 11:12:57 Result Notes None recorded. Problems Name Problem SNOMED Code Status Onset Date Resolution Date Notes Provider Name and Address Organization Details Recorded Time Gastroesophage al reflux disease 440197140 Active 2023 Sonia hernandez [facility] 17:10:30 Hypertensive disorder 58105153 Active 2023 Sonia hernandez [facility] 4 17:10:48 Environmental allergy 048210594 Active 2023 Sonia hernandez [facility] 4 17:11:05 Depressive disorder 46648657 [facility] 17:11:14 Anxiety 28284457 [facility] 17:11:21 Hyperlipidemia 02987445 [facility] 17:11:33 Lichen planus 6533435 [facility] 17:12:21 Candidiasis 11320384 [facility] 17:12:33 Asthma 694778364 [facility] 17:12:47 Problem Notes None recorded. Procedures Surgical History Date Name Laterality Status Provider Name and Address Organization Details Recorded Time 4 colonoscopy completed Anju Webb [facility] 01/20/2024 09:01:55 Imaging Results None recorded. Procedure Notes None recorded. Medical Equipment None Reported. Allergies Allergen ID Allergen Name Allergen Category Reaction Reaction Severity Criticality Documentation Date Start Date Code Code System Note Provider Name and Address Organization Details Recorded Time 8266097 Augmentin medicatio n Not available Not available Not available 05/04/20232019 80654 2 RxNorm Not Available [facility] 4 04:14:21 1035576 nitrofura ntoin medicatio n Not available Not available Not available 05/04/20232019 7454 RxNorm Not Available [facility] 4 04:14:21 3959144 Bactrim medicatio n swelling severe Not available 05/04/20232005 82391 9 RxNorm React ion: Dizzi ness; Not Available [facility] 4 04:14:24 7354813 azithromy jagjit medicatio n dizziness Not available Not available 05/04/20232005 37836 RxNorm React ion: Dizzi ness; Sonia Velez [facility] 4 17:09:34 9240817 Substance with sulfonami de structure and antibacte rial mechanism of action (substanc e) medicatio n Not available Not available Not available 01/12/2024 96858 8003 SNOMED Sonia Velez [facility] 4 17:09:22 Medications Name Sig Start Date [...] Relief 50 mcg/actuati on nasal spray,suspe nsion [place] 1 spray every day by intranasa l [...] Allergy 205.5 mcg (0.15 %) nasal spray [place] 1 spray twice a day by intranasa [...] SNOMED-CT Code Diagnosis ICD10 Code Diagnosis Note [id number] Robin Cueto MD [facility] ASC GI Anesthesi a S [address] [place] [phone] 01/16/2024 09:08:50 01/20/2024 15:37:55 [id number] Hawa Chanel MD [facility] Colorecta l ([place]) [address] [place] [address], [address] [place] [address] 01/16/2024 09:08:51 01/18/2024 10:40:35 Health Concerns Section Related Observation LastModified by Organization Detai ls LastModified Time None Recorded Concern Status LastModified by Organization Details LastModified Time None Recorded Advance Directives Directive None Recorded Payers Encounter Date Sequence Insurance Name Policy Number Policy Limon Covered Member ID Limon Member ID Guarantor Name 01/16/2024 1 [place] Adele Gould [id number] Arun Gould 01/16/2024 2 [employer] (MEDICARE SUPPLEMENT) PLAN Sánchez Gould [id number] Arun Gould 01/16/2024 1 [place] Adele Gould [id number] Arun Gould 01/16/2024 2 [employer] (MEDICARE SUPPLEMENT) PLAN Sánchez Gould [id number] Arun Gould Notes Date Note Type Note Provider Name and Address Organization Details Recorded Time 01/16/2024 text/html The patient pres ents for information regarding screening colonoscopy. Currently denies problems including diarrhea, constipation or other changes in the stools. Bowel movements on a regular basis without bleeding or discomfort. Hawa Chanel MD [address] [place] [address], [phone], [facility] 01/16/2024 10:33:02 01/16/2024 text/html SC [...] limited to PONV, dental injury, sore throat, GA, stroke, etc. All questions were answered. Patient verbalize(s) understanding and agree(s) to proceed. Robin Cueto MD [address] [place] [address], [phone], [facility] 01/16/2024 10:27:03 OBGyn Episode No OBEpisode recorded.
--- OUTSIDE RECORDS SUMMARY | 2024-08-07 11:20 | XMS_ITS | Clinical Summary ---
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 Gender Identity Not on file Sexual Orientation Not on file Plan of Treatment Health Maintenance Due Date Last Done Comments Colorectal Cancer Screening Colonoscopy (10 Years) 1950 Hepatitis C 08/19/1967 DTaP, Tdap and Td Vaccines ( 1 - Tdap) 1968 Mammogram Screening 1989 Dexa Scan (General) 2014 Pneumococcal Vaccine: 50+ Years (2 of 2 - PCV) 01/24/2017 01/25/2016 COVID-19 Vaccine ( - 2023-2 5 season) 2023 03/07/2021, 06/23/2020, 05/15/2020 RSV Immunization or 60+ Years (1 - 1-dose 75+ series) 2024 Zoster Vaccines Completed 04/03/2019, 12/16/2018 Meningococcal B Vaccine Aged Out No l onger eligible based on patient's age to complete this topic Meningococcal Vaccine Aged Out No ronald fawad eligible based on patient's age to complete this topic RSV Immunizations Under 20 Months Aged Out No longer eligible b ased on patient's age to complete this topic Insurance [address] [place] [address] [place] [address] [employer] Care Teams Fringing Machine Operator Relationship Specialty Start Date End Date George Sun MD [address] [place], [place] [id number] PCP - General FAMILY PRACTICE 10/27/21
--- OUTSIDE RECORDS SUMMARY | 2024-08-07 11:20 | XMS_ITS | Clinical Summary ---
Author Organization [facility] Address [address] [place] [address] Care Team Providers Care Assessment Specialist Name Role Phone George Sun MD Primary Care Provider [phone] Allergies Active Allergy Reactions Criticality Noted Date [...] HADS. No evidence of daytime drowsiness on [place] scale. No evidence of REM Behavior Disorder [...] new questions arise. This visit s total erpu-tv-baom time was 60 minutes. 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
--- OUTSIDE RECORDS SUMMARY | 2024-08-07 11:20 | XMS_ITS | Clinical Summary ---
Author Organization [facility] Address [address] [facility] [place] [address] Care Team Providers Care Muffler Hand Name Role Phone George Sun MD Primary Care Provider [phone] Source Comments [facility],non-owned Affiliates and Associated Physician Practices is amultiple site organization consisting of ambulatory clinics and hospital sitesin [place], [place], [place] and [place]. This disclosure is being madepursuant to the Care Everywhere program and may not contain all information available regarding this patient. Last updated 17.[facility] Allergies Active Allergy Reactions Criticality Noted Date [...] fluticasone propionate (FLONASE) 50 MCG/ACT nasal spray [place] 2 (two) sprays into each nostril once [...] Active azelastine (Astepro) 205.5 MCG/SPRAY nasal spray [place] 2 (two) sprays into each nostril 2 [...] 30 g 3 3 Active nystatin (Mycostatin) 661245 UNIT/GM ointmentIndicat ions:History of candidiasis Mix with [...] HADS. No evidence of daytime drowsiness on [place] scale. No evidence of REM Behavior Disorder [...] new questions arise. This visit s total smhl-ep-lydo time was 60 minutes. 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
--- OUTSIDE RECORDS SUMMARY | 2024-08-07 11:20 | XMS_ITS | Referral Summary ---
Author Organization [facility] Address [address] [place] [phone] Care Team Providers Care Solution Design Engineer Name Role Phone George Sun MD Primary Care Provider + [phone] Allergies Active Allergy Reactions Criticality Noted Date [...] HADS. No evidence of daytime drowsiness on [place] scale. No evidence of REM Behavior Disorder [...] new questions arise. This visit s total pmie-ly-xtiz time was 60 minutes. 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
--- OUTSIDE RECORDS SUMMARY | 2024-08-07 11:20 | XMS_ITS | Encounter Summary ---
Author Organization [facility] Address [address] [facility] [place] [address] Care Team Providers Care Turner Machine Name Role Phone George Sun MD Primary Care Provider [phone] Encounter Details Date Type Department Care Team (Late Contact Info) Description 10/24/[address] 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 [address] [place] [address] Augustina Lemons MD [address] [facility] [address] [place] [address] documented as of this encounter Procedures Procedure Name Priority Date/Time Associated Diagnosis Comments DERMATOPATHOLOGY Routine 10/20/2018 12:0 0 AM CDT documented in this encounter Results * DERMATOPATHOLOGY (10/20/2018 12:00 AM CDT) Case Report Dermatopathology Report Case: [id number] Authorizing Provider: George Sun MD Collected: 10/20/2018 [...] characteristic determined by the Dermatopathology Laboratory at [facility], directed by Dr. Suzanne Lee. These tests need not be, and therefore are not, approved by the [place] Food and Drug Administration. The tests are used for clinical purposes. Billing Codes Specimen Charges Stain Charges 27535 1 9 12:25 PM CDT DERMATOPATHOLOGY LABORATORY Embedded Images 9 12:25 PM CDT DERMATOPATHOLOGY LABORATORY Pathology/Cytolog y TISSUE SPECIMEN FROM SKIN / Unknown 10/20/2018 10/24/2018 12:23 PM CDT George Sun MD LAB - PATHOLOGY/CYTOLOGY [facility] Final Result DERMATOPATHOLOGY LABORATORY [facility] - Department of Dermatology [address] [facility], 5th Floor Lab B [address] [phone] documented in this encounter Visit Diagnoses Not on filedocumented in this encounter Care Teams Turner Machine Relationship Specialty Start Date End Date George Sun MD [address] [place] [address] PCP - General 11/14/20 documented as of this encounter
[2024-08-07 11:39] VITALS: BP 141/66; PULSE 68; RESP 17; O2SAT 97
--- NOTE | 2024-08-07 12:05 | PC.NURSE ---
This RN spoke with Myah RN at [facility] and gave update regarding pt status, informed her initial lab work was back
--- NOTE | 2024-08-07 12:35 | PC.NURSE ---
Dr. Snell at bedside updating pt. and family.
[2024-08-07] MEDS: PANTOPRAZOLE SODIUM IV 40 MG VIAL IV PUSH (12:42)
[2024-08-07 12:44] VITALS: BP 125/59; PULSE 72; RESP 14; O2SAT 95
[2024-08-07 13:39] VITALS: BP 137/55; PULSE 71; RESP 19; TEMP 36.6; O2SAT 98
[2024-08-07 14:12] VITALS: BP 121/66; PULSE 66; RESP 14; O2SAT 99
--- NOTE | 2024-08-07 14:13 | PC.NURSE ---
Report given to [facility]. All questions answered. EMS to transport pt. back to [facility].
== END 2024-08-07 14:13 ==
PROVIDERS: Emergency Provider Emergency Medicine; PCP Family Medicine
DX: D64.9 Anemia, unspecified (principal); S72.91XD Unspecified fracture of right femur, subsequent encounter for closed fracture with routine healing; I10 Essential (primary) hypertension; E03.9 Hypothyroidism, unspecified; E78.2 Mixed hyperlipidemia; E55.9 Vitamin D deficiency, unspecified; K21.9 Gastro-esophageal reflux disease without esophagitis; M17.9 Osteoarthritis of knee, unspecified; F41.9 Anxiety disorder, unspecified; Z96.652 Presence of left artificial knee joint; Z85.3 Personal history of malignant neoplasm of breast; Z92.3 Personal history of irradiation; Z90.710 Acquired absence of both cervix and uterus; Z79.82 Long term (current) use of aspirin; Z79.899 Other long term (current) drug therapy; X58.XXXD Exposure to other specified factors, subsequent encounter
CPT/HCPCS: 36415; 80053; 85025; 85610; 85730; 86850; 86900; 86901; 96374; 99284; J2470

== ENCOUNTER 2024-12-07 08:00 | Outpatient (RCR) | payer MEDICARE, OTHER, SELFPAY ==
--- NOTE | 2024-09-11 11:09 | OPREHPOC ---
Outpatient Therapy Plan of Care This is a Multidisciplinary Plan of Care that may contain components documented by all disciplines (PT, OT, and ST.) PT Problem 1 PT Problem #1 Knowledge Deficit PT Goal 1 Goal / Goal Update Patient to demonstrate independence with HEP for improved self-reliance of symptom management. Target Visit 5 PT Problem 2 PT Problem #2 Impaired Endurance PT Goal 1 Goal / Goal Update Patient to improve distance ambulated during 2MWT from 115 feet to 225 feet to demonstrate an improvement in ADL endurance. Target Visit 10 PT Problem 3 PT Problem #3 Impaired Strength PT Goal 1 Goal / Goal Update 1. Patient to increase number of STS during 5xSTS from 27 sec to 20 sec to demonstrate an increase in B LE functional strength. 2. Pt. to improve R hip strength >=4/5 for improved stability required during ADLs. Target Visit 10 PT Problem 4 PT Problem #4 Impaired Functional Mobility PT Goal 1 Goal / Goal Update 1. Patient to improve confidence and understanding of gait mechanics and stair negotiation with straight cane to improve community and home navigation. 2. Patient to improve gait mechanics and stair negotiation to no noted deficit and reciprocal pattern for improved community navigation. Target Visit 10 PT Problem 5 PT Problem #5 Impaired Range of Motion PT Goal 1 Goal / Goal Update Pt to demonstrate an increase of R hip ER/IR AROM of WFL to improve LE dressing. Target Visit 10
--- NOTE | 2024-09-11 11:09 | PTOPEVAL1 ---
Assessment and note entered by Delmy Khoury PT Evaluation Information Assessment Status Evaluation Diagnosis R hip ORIF IM nailing ICD-10 Condition Codes (PT) Pain in right hip M25.551,Encounter for other orthopedic aftercare Z47.89 Onset 08/02/24 Subjective Information Pt presents s/p R hip ORIF IM nailing on 08/03/24 following a ground level fall. Pt reports no complications with surgery. Pt was at inpatient rehab for 2 weeks after surgery then had home health for another 2 weeks. Pt reports the rika the surgeon placed was longer than usual because her proximal femur was in bad shape. Pt reports she can feel that the rika is longer so she knows it's there. Pt walked without device prior to surgery. Pt is currently using 2WW. Pt doing stairs one at a time. Pt needs to get back to ADLS and IADLS, can do all that she wants but is slow and cautious . Pt is currently sleeping in bed. Pt is having assist with lower dressing. Reported Pain Level Pain Score 1: Self Report Plan of Care Interventions Electrical Stimulation,Gait Training,Hot Pack/Cold Pack,Manual Therapy,Neuro Re-education, Therapeutic Activities,Therapeutic Exercise PT Services Indicated Yes Treatment Frequency and 2x/wk for 10 visits Duration These treatments will address the objective and functional deficits as defined above. The patient will be advanced safely and appropriately in order for the patient to progress towards his/her prior level of function. Additional exercises will be introduced and as well as a comprehensive home exercise program upon discharge, if needed, ?to ensure carryover of functional gains achieved in the clinic. This treatment plan has been reviewed and agreement upon by the patient.
--- NOTE | 2024-10-11 10:39 | OPREHPOC ---
Outpatient Therapy Plan of Care This is a Multidisciplinary Plan of Care that may contain components documented by all disciplines (PT, OT, and ST.) PT Problem 1 PT Problem #1 Knowledge Deficit PT Goal 1 Goal / Goal Update Patient to demonstrate independence with HEP for improved self-reliance of symptom management. (01/26 progressed HEP this date) Target Visit 5 Progress Partially Met PT Problem 2 PT Problem #2 Impaired Endurance PT Goal 1 Goal / Goal Update Patient to improve distance ambulated during 2MWT from 115 feet to 225 feet to demonstrate an improvement in ADL endurance. (10/11/24 MET) Target Visit 10 Progress Met PT Goal 2 Goal / Goal Update Patient to improve distance ambulated during 2MWT from 325 feet to 400 feet to demonstrate an improvement in ADL endurance. Target Visit 10 PT Problem 3 PT Problem #3 Impaired Strength PT Goal 1 Goal / Goal Update 1. Patient to increase number of STS during 5xSTS from 27 sec to 20 sec to demonstrate an increase in B LE functional strength. (10/11/24 MET) 2. Pt. to improve R hip strength >=4/5 for improved stability required during ADLs. (10/11/24 Flex 4-/5, Abd 3+/5, Ad; R: 4/5, IR: 4-/5, ER: 4-/ 5, Ext 3+/5 ) Target Visit 10 Progress Partially Met PT Goal 2 Goal / Goal Update 1. Patient to complete 5xSTS in 15 sec or less with improved eccentric control to demonstrate an increase in B LE functional strength. Target Visit 10 PT Problem 4 PT Problem #4 Impaired Functional Mobility PT Goal 1 Goal / Goal Update 1. Patient to improve confidence and understanding of gait mechanics and stair negotiation with straight cane to improve community and home navigation. (10/11/24 progressing, 50% confidence on stairs) 2. Patient to improve gait mechanics and stair negotiation to no noted deficit and reciprocal pattern for improved community navigation. ( progressing, still presenting with Trendelenburg with no AD) Target Visit 10 Progress Partially Met PT Problem 5 PT Problem #5 Impaired Range of Motion PT Goal 1 Goal / Goal Update Pt to demonstrate an increase of R hip ER/IR AROM of WFL to improve LE dressing. (10/11/24 R hip ER/ IR 25/25 deg) Target Visit 10 Progress Partially Met
--- NOTE | 2024-10-11 10:39 | PTOPPROG ---
Assessment and note entered by Delmy Khoury, PT Evaluation Information Assessment Status Progress Diagnosis R hip ORIF IM nailing ICD-10 Condition Codes (PT) Pain in right hip M25.551,Encounter for other orthopedic aftercare Z47.89 Onset 08/02/24 Subjective Information Pt reports better ability to put her shoes and socks on, getting in/out of car and bed, showering by herself (still sitting in shower chair), more confident with cane inside her home, able to help with minimal cooking tasks, and laundry. She feels as if she has gotten a lot stronger since starting therapy but is no where near where she wants to be yet. She still wants to be able to walk without a an AD, take a shower without a chair, cook full meals, do all her laundry, and get back to driving. She has not attempted her basement stairs yet. Overall since first starting therapy the pt reports feeling 75% improvement. She still thinks she has 75% more to go before feeling back to normal. Assessment PT Clinical Summary Patient's condition has improved overall as evidenced by advancements in symptoms, mobility, strength, endurance, gait with straight cane and rollator, and overall functional use of the extremity. However, some limitations are still present. Patient would benefit from continued skilled PT services to address the above listed impairments and facilitate a return to their PLOF. Plan of Care Interventions Electrical Stimulation,Gait Training,Hot Pack/Cold Pack,Manual Therapy,Neuro Re-education, Therapeutic Activities,Therapeutic Exercise PT Services Indicated Yes Treatment Frequency and 2x/wk for 10 visits Duration These treatments will address the objective and functional deficits as defined above. The patient will be advanced safely and appropriately in order for the patient to progress towards his/her prior level of function. Additional exercises will be introduced and as well as a comprehensive home exercise program upon discharge, if needed, ?to ensure carryover of functional gains achieved in the clinic. This treatment plan has been reviewed and agreement upon by the patient.
--- NOTE | 2024-11-27 16:30 | OPREHPOC ---
Outpatient Therapy Plan of Care This is a Multidisciplinary Plan of Care that may contain components documented by all disciplines (PT, OT, and ST.) PT Problem 1 PT Problem #1 Knowledge Deficit PT Goal 1 Goal / Goal Update Patient to demonstrate independence with HEP for improved self-reliance of symptom management. ( MET) Target Visit 5 Progress Met PT Problem 2 PT Problem #2 Impaired Endurance PT Goal 1 Goal / Goal Update Patient to improve distance ambulated during 2MWT from 115 feet to 225 feet to demonstrate an improvement in ADL endurance. (10/11/24 MET) Target Visit 10 Progress Met PT Goal 2 Goal / Goal Update Patient to improve distance ambulated during 2MWT from 325 feet to 400 feet to demonstrate an improvement in ADL endurance. (11/27/24 MET) Target Visit 10 Progress Met PT Problem 3 PT Problem #3 Impaired Strength PT Goal 1 Goal / Goal Update 1. Patient to increase number of STS during 5xSTS from 27 sec to 20 sec to demonstrate an increase in B LE functional strength. (10/11/24 MET) 2. Pt. to improve R hip strength >=4/5 for improved stability required during ADLs. (11/27/24 Flex 4-/5, Abd 3+/5, Ad; R: 4/5, IR: 4-/5, ER: 4-/ 5, Ext 3+/5 ) Target Visit 28 Progress Partially Met PT Goal 2 Goal / Goal Update 1. Patient to complete 5xSTS in 15 sec or less with improved eccentric control to demonstrate an increase in B LE functional strength. (11/27/24 MET ) Target Visit 10 Progress Met PT Problem 4 PT Problem #4 Impaired Functional Mobility PT Goal 1 Goal / Goal Update 1. Patient to improve confidence and understanding of gait mechanics and stair negotiation with straight cane to improve community and home navigation. (11/27/24 MET) 2. Patient to improve gait mechanics and stair negotiation to no noted deficit and reciprocal pattern for improved community navigation. ( progressing, still presenting with Trendelenburg with no AD) Target Visit 28 Progress Partially Met PT Goal 2 Goal / Goal Update 3. Patient to score >=52/56 on the Bradley Balance Scale to show improvements in balance and decreased level of assistance needed. Target Visit 28 PT Problem 5 PT Problem #5 Impaired Range of Motion PT Goal 1 Goal / Goal Update Pt to demonstrate an increase of R hip ER/IR AROM of WFL to improve LE dressing. (11/27/24 R hip ER/ IR 33/35 deg) Target Visit 28 Progress Partially Met
--- NOTE | 2024-11-27 16:30 | PTOPPROG ---
Assessment and note entered by Delmy Khoury, PT Evaluation Information Assessment Status Progress Diagnosis R hip ORIF IM nailing ICD-10 Condition Codes (PT) Pain in right hip M25.551,Encounter for other orthopedic aftercare Z47.89 Onset 08/02/24 Subjective Information Pt reports no difficulties with putting her shoes and socks on, getting in/out of bed, more confident without an AD inside her home, able to do her own with cooking and laundry. She often forgets about her cane while in the kitchen and can do minor tasks without it. She will furniture surf sometimes though. Minor difficulties getting in/out of taller vehicle, she can do it but has to concentrate. She still wants to be able to walk without a an AD. She can do her basement steps now but has to take it slow. Overall since first starting therapy the pt reports feeling 75% improvement. She still thinks she has 25% more to go before feeling back to normal. She does not even think about fear of falling anymore but thinks her balance could still use some work. Assessment PT Clinical Summary Patient's condition has improved overall as evidenced by advancements in symptoms, mobility, strength, endurance, gait with and without a SC, and overall functional tolerance to ADLs. However, limitations are still present in R hip strength that contributes to her continued Trendelenburg gait pattern without an AD. Pt also scored 46/56 on Bradley Balance this date demonstrating continued fall risk. The patient's main goal for therapy is to walk without an AD >75% of the time. The pt would benefit with continued skilled therapy addressing strength, stability, and balance to facilitate a return to her PLOF, decrease fall risk and meet her subjective goal. Plan of Care Interventions Electrical Stimulation,Gait Training,Hot Pack/Cold Pack,Manual Therapy,Neuro Re-education, Therapeutic Activities,Therapeutic Exercise PT Services Indicated Yes Treatment Frequency and 1-2x/wk for 8 visits Duration These treatments will address the objective and functional deficits as defined above. The patient will be advanced safely and appropriately in order for the patient to progress towards his/her prior level of function. Additional exercises will be introduced and as well as a comprehensive home exercise program upon discharge, if needed, ?to ensure carryover of functional gains achieved in the clinic. This treatment plan has been reviewed and agreement upon by the patient.
== END 2024-12-10 23:59 | disposition home or self-care (01) ==
LOC: ANHGOSHPT 08:00
PROVIDERS: PCP Family Medicine; Visit Provider Orthopaedic Surgery
DX: Z98.890 Other specified postprocedural states (principal); M17.11 Unilateral primary osteoarthritis, right knee; Z87.81 Personal history of (healed) traumatic fracture
CPT/HCPCS: 97110; 97112; 97116; 97140; 97161; 97530

== ENCOUNTER 2025-01-08 13:30 | Outpatient (RCR) | payer MEDICARE, OTHER, SELFPAY ==
--- NOTE | 2025-01-08 14:11 | PTOPDC ---
Assessment and note entered by Musa Lanier, PT Evaluation Information Assessment Status Discharge Diagnosis R hip ORIF IM nailing ICD-10 Condition Codes (PT) Pain in right hip M25.551,Encounter for other orthopedic aftercare Z47.89 Onset 08/02/24 Subjective Information Pt states she is very pleased with her progress and currently has no concerns. Pt states she is walking with no cane. Is confident with her home making activities and navigates in the community with ease. Pt plans to continue home exercises t o maintain her strength Reported Pain Level Pain Score 0: Self Report Assessment PT Clinical Summary Patient's R hip has improved overall as evidenced by advancements in symptoms, mobility, strength, and overall functional use of the extremity. Patient has met all therapy goals and is pleased with progress. Patient to discharge from physical therapy this date and continue with updated home exercise program as instructed. Patient to contact physical therapist or primary care provider if questions or concerns arise. Plan of Care PT Services Indicated No
== END 2025-01-09 10:04 | disposition home or self-care (01) ==
LOC: ANHGOSHPT 13:30
PROVIDERS: PCP Family Medicine; Visit Provider Orthopaedic Surgery
DX: Z87.81 Personal history of (healed) traumatic fracture (principal); M25.551 Pain in right hip; Z98.890 Other specified postprocedural states
CPT/HCPCS: 97110; 97112; 97530